=== PATIENT | female | born 1940 | race American Indian/Alaskan Native ===

== ENCOUNTER → 2019-03-21 | Outpatient (CLI) | payer MEDICARE ==
[~2019-03-21] MED LIST: ACET325; AMOCLA875 PO; CALCAVITDA PO; CODGUAEL PO; FLUT.05NI; GABA100 PO; GABA300 PO; HYDACE10B PO; INSULANI; METANX PO; METF500; METF500 PO; NIAC250ER PO; OMEP10ER PO; VITB100
== END | disposition home or self-care (01) ==
LOC: LAB SHORT 12:15 → LAB UCHC 12:15 → LAB FUT 01-11 14:10
DX: E78.2 Mixed hyperlipidemia (principal); E11.42 Type 2 diabetes mellitus with diabetic polyneuropathy; D50.9 Iron deficiency anemia, unspecified; R60.0 Localized edema
CPT/HCPCS: 82043

== ENCOUNTER 2019-04-15 07:53 | Day surgery (SDC) | payer MEDICARE ==
[~2019-04-15] VITALS: Ht 144.8 cm; Wt 59.4 kg
[~2019-04-15 07:53] MED LIST changes: +GEMF600 PO
--- NOTE | 2019-04-15 08:58 | NUR ---
Ambulatory WITH CANE in Day Surgery History, Chart, Medications and Allergies reviewed before start of procedure.Lungs clear T/O to Auscultation. Patient confirms NPO status and agrees with scheduled surgery. Patient States Post-Procedure ride home has been arranged. Patient states colon prep results clear. BLOOD SUGAR 144
--- NOTE | 2019-04-15 09:34 | NUR ---
04/15/19 0934 Emily Hwang History, Chart, Medications and Allergies reviewed before start of procedure.PATIENT DETERMINED TO BE ASA APPROPRIATE FOR PROPOFOL SEDATION PRIOR TO START OF PROCEDURE BY .MONITOR INTACT WITH CONTINUOUS PULSE OXIMETRY AND INTERMITTENT BP.3-LEAD EKG REVIEWED WITH PHYSICIAN PRIOR TO START OF PROCEDURE.O2 VIA N/C INTACT THROUGHOUT SEDATION/PROCEDURE.
--- NOTE | 2019-04-15 10:09 | NUR ---
DISCHARGED AT THIS TIME WITH ALL BELONGINGS AND DISCHARGE INSTRUCTIONS. DAUGHTER AT [employer] DOUBLING MACHINE OPERATOR TO TAKE HOME
== END 2019-04-15 22:57 | disposition home or self-care (01) ==
LOC: ORSCMMR 07:53 → ORD 09:00 → ORSCMMR 22:57
PROVIDERS: Internal Medicine Gastroenterology
PROC: 0DJD8ZZ Inspection of Lower Intestinal Tract, Via Natural or Artificial Opening Endoscopic (ICD-10-PCS; principal; 2019-04-15 09:00)
DX: Z12.11 Encounter for screening for malignant neoplasm of colon (principal); Z86.010 Personal history of colon polyps; K57.30 Diverticulosis of large intestine without perforation or abscess without bleeding; E11.9 Type 2 diabetes mellitus without complications; E78.00 Pure hypercholesterolemia, unspecified; Z79.84 Long term (current) use of oral hypoglycemic drugs; Z79.899 Other long term (current) drug therapy
CPT/HCPCS: 82947; J2704; J7120

== ENCOUNTER → 2019-11-17 | Outpatient (CLI) | payer MEDICARE ==
[2019-11-17 18:39] LABS: BASOPHILS ABSOLUTE AUTO 0.02 K/mm3 (0.00-0.23); BASOPHILS PERCENT AUTO 0 % (0-2); EOSINOPHILS ABSOLUTE AUTO 0.03 K/mm3 (0.00-0.68); EOSINOPHILS PERCENT AUTO 1 % (0-6); Hematocrit 33.6 % (33.0-51.0); Hemoglobin 11.6 g/dL (11.5-16.0); IMMATURE GRAN ABSOLUTE AUTO 0.02 K/mm3 (0.00-0.10); IMMATURE GRAN PERCENT AUTO 0 % (0-1); LYMPHOCYTES ABSOLUTE AUTO 0.74 K/mm3 (0.84-5.20); LYMPHOCYTES PERCENT AUTO 14 % (21-46); MONOCYTES ABSOLUTE AUTO 0.58 K/mm3 (0.16-1.47); MONOCYTES PERCENT AUTO 11 % (4-13); Mean Corpuscular HGB 34.2 pg (26.0-34.0); Mean Corpuscular HGB Conc 34.5 g/dL (31.5-36.5); Mean Corpuscular Volume 99 fL (80-100); Mean Platelet Volume 11.8 fL (9.1-12.4); NEUTROPHILS ABSOLUTE AUTO 4.07 K/mm3 (1.96-9.15); NEUTROPHILS PERCENT AUTO 75 % (41-73); Platelet Count 268 K/mm3 (150-400); RDW Coefficient Variation 13.1 % (11.7-14.2); RDW Standard Deviation 47.4 fL (35.1-46.3); Red Blood Cell Count 3.39 M/mm3 (3.80-5.20); White Blood Cell Count 5.46 K/mm3 (4.00-11.30)
[2019-11-17 18:56] LABS: Alanine Aminotransfer (ALT/SGP 7 U/L (12-78); Albumin, Blood 3.2 g/dL (3.4-5.0); Albumin/Globulin Ratio 0.8 (0.8-1.8); Alk Phos 158 U/L (40-126); Anion Gap 15 mmol/L (6-16); Aspartate Aminotrans (AST/SGOT 16 U/L (12-37); Bilirubin, Total 0.7 mg/dL (0.1-1.0); Blood Urea Nitrogen 19 mg/dL (8-24); Bun/Creatinine Ratio 23.2 (12.0-20.0); CO2, Blood 22 mmol/L (21-32); Calcium, Blood 8.9 mg/dL (8.5-10.1); Chloride, Blood 105 mmol/L (98-108); Creatinine, Blood 0.82 mg/dL (0.40-1.00); Globulin, Blood 4.2 g/dL (2.2-4.0); Glomerular Filtration Rate >60 (60-); Glucose, Blood 121 mg/dL (70-99); Potassium, Blood 4.4 mmol/L (3.5-5.5); Sodium, Blood 142 mmol/L (136-145); Thyroid Stimulating Hormone 2.103 uIU/mL (0.360-4.800); Total Protein, Blood 7.4 g/dL (6.4-8.2)
== END | disposition home or self-care (01) ==
LOC: LAB EV 18:35 → LAB SHORT 18:35
PROVIDERS: Physician Assistant
DX: M25.50 Pain in unspecified joint (principal); R53.83 Other fatigue
CPT/HCPCS: 80053; 84443; 85025; 85651

== ENCOUNTER → 2019-12-09 | Outpatient (CLI) | payer MEDICARE ==
[2019-12-10 11:48] LABS: Adenovirus F 40/41 Not Detected (NOT DETECT); Astrovirus Not Detected (NOT DETECT); Campylobacter Sp Not Detected (NOT DETECT); Cryptosporidium Not Detected (NOT DETECT); Cyclospora Cayetanensis Not Detected (NOT DETECT); E. Coli O157 Not Detected (NOT DETECT); Entamoeba Histolytica Not Detected (NOT DETECT); Enteroaggregative E. coli-EAEC Not Detected (NOT DETECT); Enteropathogenic E. coli-EPEC Not Detected (NOT DETECT); Enterotoxigenic E. coli-ETEC Not Detected (NOT DETECT); Giardia Lamblia Not Detected (NOT DETECT); Norovirus GI/GII Not Detected (NOT DETECT); Plesiomonas Shigelloides Not Detected (NOT DETECT); Rotavirus A Not Detected (NOT DETECT); Salmonella Sp Not Detected (NOT DETECT); Sapovirus Not Detected (NOT DETECT); Shiga Toxin-prod E. coli-STEC Not Detected (NOT DETECT); Shigella/Enteroin E. coli-EIEC Not Detected (NOT DETECT); Vibrio Cholerae Not Detected (NOT DETECT); Vibrio Sp Not Detected (NOT DETECT); Yersinia Enterocolitica Not Detected (NOT DETECT)
== END | disposition home or self-care (01) ==
LOC: LAB UCHC 17:00 → LAB SHORT 17:00
PROVIDERS: Internal Medicine
DX: R19.7 Diarrhea, unspecified (principal)
CPT/HCPCS: 0097U

== ENCOUNTER → 2020-05-18 | Outpatient (CLI) | payer MEDICARE ==
[2020-05-18 16:23] LABS: BASOPHILS ABSOLUTE AUTO 0.03 K/mm3 (0.00-0.23); BASOPHILS PERCENT AUTO 1 % (0-2); EOSINOPHILS ABSOLUTE AUTO 0.04 K/mm3 (0.00-0.68); EOSINOPHILS PERCENT AUTO 1 % (0-6); Hematocrit 36.3 % (33.0-51.0); Hemoglobin 11.9 g/dL (11.5-16.0); IMMATURE GRAN ABSOLUTE AUTO 0.02 K/mm3 (0.00-0.10); IMMATURE GRAN PERCENT AUTO 1 % (0-1); LYMPHOCYTES ABSOLUTE AUTO 0.95 K/mm3 (0.84-5.20); LYMPHOCYTES PERCENT AUTO 26 % (21-46); MONOCYTES ABSOLUTE AUTO 0.45 K/mm3 (0.16-1.47); MONOCYTES PERCENT AUTO 12 % (4-13); Mean Corpuscular HGB 34.2 pg (26.0-34.0); Mean Corpuscular HGB Conc 32.8 g/dL (31.5-36.5); Mean Corpuscular Volume 104 fL (80-100); Mean Platelet Volume 12.3 fL (9.1-12.4); NEUTROPHILS ABSOLUTE AUTO 2.22 K/mm3 (1.96-9.15); NEUTROPHILS PERCENT AUTO 60 % (41-73); Platelet Count 247 K/mm3 (150-400); RDW Coefficient Variation 12.5 % (11.7-14.2); RDW Standard Deviation 47.6 fL (35.1-46.3); Red Blood Cell Count 3.48 M/mm3 (3.80-5.20); White Blood Cell Count 3.71 K/mm3 (4.00-11.30)
[2020-05-18 16:48] LABS: Alanine Aminotransfer (ALT/SGP 9 U/L (12-78); Albumin, Blood 3.2 g/dL (3.4-5.0); Albumin/Globulin Ratio 0.9 (0.8-1.8); Alk Phos 137 U/L (50-136); Anion Gap 11 mmol/L (6-16); Aspartate Aminotrans (AST/SGOT 17 U/L (12-37); Bilirubin, Total 0.4 mg/dL (0.1-1.0); Blood Urea Nitrogen 14 mg/dL (8-24); Bun/Creatinine Ratio 20.4 (12.0-20.0); CO2, Blood 21 mmol/L (21-32); Calcium, Blood 8.5 mg/dL (8.5-10.1); Chloride, Blood 110 mmol/L (98-108); Creatinine, Blood 0.69 mg/dL (0.40-1.00); Globulin, Blood 3.5 g/dL (2.2-4.0); Glomerular Filtration Rate >60 (60-); Glucose, Blood 82 mg/dL (70-99); Potassium, Blood 4.5 mmol/L (3.5-5.5); Sodium, Blood 142 mmol/L (136-145); Total Protein, Blood 6.7 g/dL (6.4-8.2)
[2020-05-18 17:15] LABS: CHOL/HDL RATIO 3.4; Cholesterol 150 mg/dL (50-200); HDL Cholesterol 44 mg/dL (>39); LDL/HDL RATIO 1.4; Low Density Lipoprotein Chol 63 mg/dL (0-110); Triglycerides 215 mg/dL (30-160); Very Low Density Lipoprot Chol 43 mg/dL (6-32)
== END ==
LOC: LAB SHORT 13:45
PROVIDERS: Internal Medicine
DX: E53.8 Deficiency of other specified B group vitamins (principal); E78.2 Mixed hyperlipidemia; E11.42 Type 2 diabetes mellitus with diabetic polyneuropathy
CPT/HCPCS: 80053; 80061; 82607; 82746; 83036; 85025

== ENCOUNTER → 2020-05-19 | Outpatient (CLI) | payer MEDICARE | LOC: LAB SHORT 13:18 → LAB 13:18 | DX: E11.42 Type 2 diabetes mellitus with diabetic polyneuropathy (principal) | CPT/HCPCS: 82043 ==

== ENCOUNTER → 2022-07-10 | Outpatient (CLI) | payer MEDICARE ==
[~2022-07-10] MED LIST changes: +NAPROXEN250 M1 PO
[2022-07-10 12:06] LABS: BASOPHILS ABSOLUTE AUTO 0.02 K/mm3 (0.00-0.23); BASOPHILS PERCENT AUTO 0 % (0-2); EOSINOPHILS ABSOLUTE AUTO 0.06 K/mm3 (0.00-0.68); EOSINOPHILS PERCENT AUTO 1 % (0-6); Hematocrit 24.6 % (33.0-51.0); Hemoglobin 7.7 g/dL (11.5-16.0); IMMATURE GRAN ABSOLUTE AUTO 0.15 K/mm3 (0.00-0.10); IMMATURE GRAN PERCENT AUTO 3 % (0-1); LYMPHOCYTES ABSOLUTE AUTO 0.96 K/mm3 (0.84-5.20); LYMPHOCYTES PERCENT AUTO 16 % (21-46); MONOCYTES PERCENT AUTO 7 % (4-13); Mean Corpuscular HGB 32.1 pg (26.0-34.0); Mean Corpuscular HGB Conc 31.3 g/dL (31.5-36.5); Mean Corpuscular Volume 103 fL (80-100); Mean Platelet Volume 10.6 fL (9.1-12.4); NEUTROPHILS PERCENT AUTO 73 % (41-73); NRBC ABSOLUTE 0.03 K/mm3 (0.00-0.02); NRBC Auto 0.5 /100 WBC (0.0-0.2); Platelet Count 411 K/mm3 (150-400); RDW Coefficient Variation 17.5 % (11.7-14.2); RDW Standard Deviation 58.4 fL (35.1-46.3); White Blood Cell Count 5.89 K/mm3 (4.00-11.30)
[2022-07-10 14:43] LABS: Albumin/Globulin Ratio 0.6 (0.8-1.8); Bilirubin, Total 0.5 mg/dL (0.1-1.0); Bun/Creatinine Ratio 39.8 (12.0-20.0); Calcium, Blood 9.2 mg/dL (8.5-10.1); Creatinine, Blood 0.85 mg/dL (0.40-1.00); Globulin, Blood 4.9 g/dL (2.2-4.0); Potassium, Blood 4.6 mmol/L (3.5-5.5); Total Protein, Blood 7.9 g/dL (6.4-8.2)
== END | disposition home or self-care (01) ==
LOC: LAB SHORT 10:51
PROVIDERS: Family Medicine
DX: E11.8 Type 2 diabetes mellitus with unspecified complications (principal); N28.89 Other specified disorders of kidney and ureter; R53.1 Weakness; R32 Unspecified urinary incontinence; R68.89 Other general symptoms and signs; T14.8XXD Other injury of unspecified body region, subsequent encounter; Z73.89 Other problems related to life management difficulty; Z79.899 Other long term (current) drug therapy
CPT/HCPCS: 80053; 85025

== ENCOUNTER → 2022-07-17 | Outpatient (CLI) | payer MEDICARE ==
[2022-07-17 15:36] LABS: BASOPHILS ABSOLUTE AUTO 0.02 K/mm3 (0.00-0.23); BASOPHILS PERCENT AUTO 0 % (0-2); EOSINOPHILS ABSOLUTE AUTO 0.03 K/mm3 (0.00-0.68); EOSINOPHILS PERCENT AUTO 1 % (0-6); Hematocrit 28.3 % (33.0-51.0); Hemoglobin 8.8 g/dL (11.5-16.0); IMMATURE GRAN ABSOLUTE AUTO 0.05 K/mm3 (0.00-0.10); IMMATURE GRAN PERCENT AUTO 1 % (0-1); LYMPHOCYTES ABSOLUTE AUTO 0.91 K/mm3 (0.84-5.20); LYMPHOCYTES PERCENT AUTO 16 % (21-46); MONOCYTES PERCENT AUTO 7 % (4-13); Mean Corpuscular HGB Conc 31.1 g/dL (31.5-36.5); Mean Corpuscular Volume 103 fL (80-100); Mean Platelet Volume 10.2 fL (9.1-12.4); NEUTROPHILS ABSOLUTE AUTO 4.28 K/mm3 (1.96-9.15); NEUTROPHILS PERCENT AUTO 75 % (41-73); Platelet Count 483 K/mm3 (150-400); RDW Coefficient Variation 17.6 % (11.7-14.2); RDW Standard Deviation 64.6 fL (35.1-46.3); Red Blood Cell Count 2.75 M/mm3 (3.80-5.20); White Blood Cell Count 5.69 K/mm3 (4.00-11.30)
== END ==
LOC: LAB 13:25 → LAB SHORT 13:25
PROVIDERS: Family Medicine
DX: D64.9 Anemia, unspecified (principal)
CPT/HCPCS: 85025

== ENCOUNTER 2022-09-24 18:40 | Observation (INO) | payer MEDICARE ==
[~2022-09-24] VITALS: Ht 144.8 cm; Wt 61.5 kg
[2022-09-24] MEDS ORDERED: NEURONTIN40010 PO (19:09)
[2022-09-24] MEDS ORDERED: GEMFIBROZIL600 MG PO (19:09)
[2022-09-24] MEDS ORDERED: Naproxen375 MG PO (19:11)
[2022-09-24] MEDS ORDERED: GLIM2 PO (19:12)
[2022-09-24] MEDS ORDERED: LOSA25 PO (19:12)
[2022-09-24] MEDS ORDERED: GEMTESA75 MG PO (19:12)
[2022-09-24 19:13] LABS: BASOPHILS ABSOLUTE AUTO 0.01 K/mm3 (0.00-0.23); BASOPHILS PERCENT AUTO 0 % (0-2); EOSINOPHILS ABSOLUTE AUTO 0.01 K/mm3 (0.00-0.68); EOSINOPHILS PERCENT AUTO 0 % (0-6); Hematocrit 28.8 % (33.0-51.0); Hemoglobin 9.3 g/dL (11.5-16.0); IMMATURE GRAN ABSOLUTE AUTO 0.04 K/mm3 (0.00-0.10); IMMATURE GRAN PERCENT AUTO 1 % (0-1); LYMPHOCYTES ABSOLUTE AUTO 0.78 K/mm3 (0.84-5.20); LYMPHOCYTES PERCENT AUTO 15 % (21-46); MONOCYTES ABSOLUTE AUTO 0.37 K/mm3 (0.16-1.47); MONOCYTES PERCENT AUTO 7 % (4-13); Mean Corpuscular HGB 31.3 pg (26.0-34.0); Mean Corpuscular HGB Conc 32.3 g/dL (31.5-36.5); Mean Corpuscular Volume 97 fL (80-100); Mean Platelet Volume 10.6 fL (9.1-12.4); NEUTROPHILS ABSOLUTE AUTO 3.87 K/mm3 (1.96-9.15); NEUTROPHILS PERCENT AUTO 76 % (41-73); Platelet Count 377 K/mm3 (150-400); RDW Coefficient Variation 14.6 % (11.7-14.2); RDW Standard Deviation 51.7 fL (35.1-46.3); Red Blood Cell Count 2.97 M/mm3 (3.80-5.20); White Blood Cell Count 5.08 K/mm3 (4.00-11.30)
[2022-09-24] MEDS ORDERED: DICLOFENAC SOD100 GM TOP (19:13)
[2022-09-24 19:33] LABS: Albumin, Blood 3.1 g/dL (3.4-5.0); Albumin/Globulin Ratio 0.7 (0.8-1.8); Bilirubin, Total 0.2 mg/dL (0.1-1.0); Bun/Creatinine Ratio 48.4 (12.0-20.0); Calcium, Blood 9.1 mg/dL (8.5-10.1); Creatinine, Blood 0.89 mg/dL (0.40-1.00); Globulin, Blood 4.5 g/dL (2.2-4.0); Potassium, Blood 4.1 mmol/L (3.5-5.5); Total Protein, Blood 7.6 g/dL (6.4-8.2)
[2022-09-24 23:10] LABS: Source, Urine Voided
[2022-09-24 23:31] LABS: Bilirubin, Urine Neg (Neg); Blood, Urine Neg (Neg); Glucose Qualitative, Urine Neg (Neg); Ketones, Urine Neg (Neg); Leukocyte Esterase, Urine Neg (Neg); Nitrite, Urine Neg (Neg); Protein, Urine Neg (Neg); Urobilinogen, Urine NORM (Normal); pH, Urine 6.5 (5.0-8.0)
[2022-09-24 23:40] LABS: Appearance, Urine Clear (Clear); Color, Urine Yellow (P-Yellow)
[2022-09-25] VITALS (12 sets, daily range): BP systolic 125–163; BP diastolic 49–92
[2022-09-25 04:14] LABS: BASOPHILS ABSOLUTE AUTO 0.02 K/mm3 (0.00-0.23); BASOPHILS PERCENT AUTO 0 % (0-2); EOSINOPHILS ABSOLUTE AUTO 0.03 K/mm3 (0.00-0.68); EOSINOPHILS PERCENT AUTO 1 % (0-6); Hematocrit 30.7 % (33.0-51.0); Hemoglobin 9.8 g/dL (11.5-16.0); IMMATURE GRAN ABSOLUTE AUTO 0.06 K/mm3 (0.00-0.10); IMMATURE GRAN PERCENT AUTO 1 % (0-1); LYMPHOCYTES ABSOLUTE AUTO 0.89 K/mm3 (0.84-5.20); LYMPHOCYTES PERCENT AUTO 19 % (21-46); MONOCYTES ABSOLUTE AUTO 0.46 K/mm3 (0.16-1.47); MONOCYTES PERCENT AUTO 10 % (4-13); Mean Corpuscular HGB 31.2 pg (26.0-34.0); Mean Corpuscular HGB Conc 31.9 g/dL (31.5-36.5); Mean Corpuscular Volume 98 fL (80-100); Mean Platelet Volume 10.5 fL (9.1-12.4); NEUTROPHILS ABSOLUTE AUTO 3.32 K/mm3 (1.96-9.15); NEUTROPHILS PERCENT AUTO 70 % (41-73); Platelet Count 381 K/mm3 (150-400); RDW Coefficient Variation 14.9 % (11.7-14.2); RDW Standard Deviation 53.5 fL (35.1-46.3); Red Blood Cell Count 3.14 M/mm3 (3.80-5.20); White Blood Cell Count 4.78 K/mm3 (4.00-11.30)
[2022-09-25 04:35] LABS: Albumin/Globulin Ratio 0.7 (0.8-1.8); Bilirubin, Total 0.4 mg/dL (0.1-1.0); Bun/Creatinine Ratio 41.6 (12.0-20.0); Calcium, Blood 8.9 mg/dL (8.5-10.1); Creatinine, Blood 0.84 mg/dL (0.40-1.00); Globulin, Blood 4.3 g/dL (2.2-4.0); Potassium, Blood 4.3 mmol/L (3.5-5.5); Total Protein, Blood 7.3 g/dL (6.4-8.2)
--- NOTE | 2022-09-25 05:12 | NUR ---
ASSUMED PT CARE FROM RN IN ED. PT TRANSFERED TO BED FORM [facility] VIA SLIDER SHEET. PT A&OX4. REQUESTING HOME DOSE OF GABIPENTIN FOR NERVE PAIN IN FEET. NO OTHER COMPLAINTS. D10% INFURSING ORDERED. DR. DECKER INFORMED OF LOW BLOOD SUGARS. 1 AMP GIVEN BY TELEPHONE REPAIRERMELITON GIORDANO. PT REMAINS ASYMPTOMATIC OF BLOOD SUGARS. CALL LIGHT IN REACH. BED ALARM ON.
--- NOTE | 2022-09-25 05:49 | NUR ---
THIS NURSE ASSUMED CARE AT THIS TIME.
[2022-09-25] MEDS ORDERED: GABA800 PO ×5 (09:17→09:20)
[2022-09-25] MEDS ORDERED: Neurontin800 MG PO (09:18)
--- NOTE | 2022-09-25 16:22 | NUR ---
SHIFT SUMMARY: PT A&Ox4, COOPERATIVE W/CARE. O2 SATS >93% ON RA, DENIES SOB. SR ON MONITOR, RATE 80s, PT DENIES CP. INDWELLING COLON CATHETER CONTINUES PATENT, DRAINING TO GRAVITY. CATHETER WAS CLAMPED FROM 0600 TO 0930 THIS AM, PT DENIED SENSATION OR NEED TO VOID, CATHETER UNCLAMPED W/APPROX 650 IMMEDIATE DRAINAGE, PROVIDER AWARE, PLAN TO KEEP CATHETER IN PLACE AND TRY TO BLADDER TRAIN AGAIN TOMORROW. Q1H BLOOD GLUCOSE CHECKS COMPLETE AT THIS TIME, PT HAS TRANSITIONED TO ACHS AND PRN CHECKS, TOLERATING WELL THUS FAR. PT DIDIERAL COMPLETED THIS AFTERNOON, PT TOLERATED WELL, CURRENTLY SITTING IN BEDSIDE RECLINER. BEDBATH COMPLETED TODAY. WILL CONTINUE TO MONITOR AND TREAT ACCORDINGLY UNTIL CHANGE OF SHIFT.
--- NOTE | 2022-09-25 22:33 | NUR ---
ASSUMED CARE 2220 [place] [facility] [place] A&OX4. NO COMPLAINTS OF PAIN. COLON DRAINING TO GRAVITY, YELLOW IN COLOR. IV'S FLUSHED. WARM BLANKET PROVIDED, CALL LIGHT WITHIN REACH.
[2022-09-26 04:17] VITALS: BP 109/67
--- NOTE | 2022-09-26 05:15 | NUR ---
SHIFT SUMMARY PT A&OX4, AND COOPERATIVE WITH CARE. TRANSFERRED FROM PCU LAST NIGHT, RESTED MAJORITY OF SHIFT. NO ACUTE CHANGES. MONITORED GLUCOSE CLOSELY, 113 AT MIDNIGHT, AND 106 AT 0300. COLON PATIENT AND DRAINING TO GRAVITY, YELLOW IN COLOR. CALLS APPROPRIATELY, CALL LIGHT WITHIN REACH.
[2022-09-26 07:05] VITALS: BP 121/51
--- NOTE | 2022-09-26 10:47 | NUR ---
BLADDER TRAINING INITIATED AT 1030. PT EDUCATED ON PURPOSE OF BLADDER TRAINING.
[2022-09-26] MEDS ORDERED: GABA100 PO (11:33)
[2022-09-26] MEDS ORDERED: GABA300 PO (11:34)
--- NOTE | 2022-09-26 12:44 | NUR ---
COMMUNITY DEVELOPMENT AIDE NOTIFIED THIS RN THAT PATIENT WAS UPSET AND CRYING IN HER ROOM AFTER DAUGHTER LEFT. SPOKE WITH PATIENT WHO STATED HER DAUGHTER TOLD HER THAT" SHE HAS NO MONEY TO PAY THE BILLS, YOU CAN'T STAY HERE BY YOURSELF ALONE." THE PATIENT STATED THAT SHE DOESNT BELIIEVE SHE WILL BE ALLOWED TO GO HOME WITH HER DAUGHTER. PT STATES THAT THIS MAKES HER WISH TO GIVE UP SO NOT TO BOTHER PEOPLE WITH HER PROBLEMS. SPOKE WITH CARE MANAGEMENT TO UPDATE THEM ON PATIENTS DISCHARGE CONCERNS. SPENT TIME TALKING WITH PATIENT.
[2022-09-26 15:15] VITALS: BP 149/67
--- NOTE | 2022-09-26 16:37 | NUR ---
spoke with patient about discharge. this rn asked her if she feels safe returning home. the patient hesitated for a few seconds before saying "well she will definetly talk to me, but i dont think she would hit me or anything." I asked her if she has access to a phone in case she doesnt feel safe, she stated she does not have access to a phone and does not have a landline at home. she stated she always wanted one "but it seems like no one was ever able to get it done" call placed to APS at this time spoke with Dominic Sofia They reccomend contacting transition services with [facility] pt previously expressed a desire to go to a place where "I am no longer treated like a child." She also expressed a concern that her daughter would not allow home health into her house.
--- NOTE | 2022-09-26 16:41 | NUR ---
DISCHARGE SUMMARY PT A&O X4, ABLE TO RESPOND APPROPRAITELY. PT BEING DISCHARGED WITH CATHETER. EDUCATED ABOUT CATHETER CARE AND DRAINING CATHETER. PT WAS VERY RECEPTIVE, ASKED APPROPRIATE QUESTIONS. EDUCATED FURTHER ON DIABETES MANAGEMENT, PT WELL RECEPTIVE. PT HAD SOME QUESTIONS ABOUT HOME HEALTH. PT SAYS "I DONT KNOW IF MY DAUGHTER WILL ALLOW THEM IN. SHE DOESNT KNOW IF SHE WILL BE ABLE TO PAY TO THEM." WAS EDUCATED THEY WILL COME AND EVALUATE SITUATION. PT RECEPTIVE TO THIS INFORMATION. NO OTHER QUESTIONS AT THIS TIME. PT ABLE TO STAND UP WITH SOME ASST. WAITING ON TRANSPORT.
--- NOTE | 2022-09-26 17:01 | NUR ---
spoke with dr. ayala, she states patient is still safe to discharge medically. spoke with career manager again daughter is aware that patient is coming home and is agreable to patient coming home. pt still agrees to go home at this time.
--- NOTE | 2022-09-26 18:02 | NUR ---
Pt. is sitting up in a recliner and welcomes my visit. Pt. is pleasant and without much effort rapport is established. Facilitated an extensive life review with the Pt. Explored matters of personal dave and belief. Pt. verbalized that her current living arrangement with her daughter was not working out, because the daughter works long hours and can't be home to care for her. Pt. displayed evidence of trust. Pt. verbalized that she had prayed for a person of dave to visit her prior to this systems planner's arrival. Prayed with Pt. Pt. verbalized gratitude for the spiritual care visit and that to her it was an answer to prayer.
== END 2022-09-26 19:00 | disposition home or self-care (01) ==
LOC: ER 18:40 → PCU 18:41 → ERHOLD 18:41 → PCU 09-25 02:32 → SURS 09-25 22:25
PROVIDERS: Emergency Medicine; ADMIT Internal Medicine
DX: E11.649 Type 2 diabetes mellitus with hypoglycemia without coma (principal); K62.5 Hemorrhage of anus and rectum; R33.9 Retention of urine, unspecified; E11.42 Type 2 diabetes mellitus with diabetic polyneuropathy; Z79.84 Long term (current) use of oral hypoglycemic drugs
CPT/HCPCS: 36415; 51701; 51702; 74177; 80053; 81003; 82947; 83036; 83690; 85025; 93005; 93010; 96361-59; 96372; 96374-59; 96375; 96376; 96376-59; 97110-CQ; 97116; 97116-CQ; 97162; 97166; 97530; 97535; 99285-25; A9270; C1751; G0378; J1610; J1650; J7042; Q9967

== ENCOUNTER → 2023-02-16 | Outpatient (CLI) | payer MEDICARE ==
[~2023-02-16] MED LIST changes: +DICLOFENAC SOD100 GM TOP; +GABA800 PO; +GEMFIBROZIL600 MG PO; +GEMTESA75 MG PO; +GLIM2 PO; +LOSA25 PO; +NEURONTIN40010 PO; +Naproxen375 MG PO; +Neurontin800 MG PO; +ONDA4ODT MM
[2023-02-16 15:27] LABS: Appearance, Urine Clear (Clear); Bilirubin, Urine Neg (Neg); Blood, Urine Neg (Neg); Color, Urine Yellow (P-Yellow); Glucose Qualitative, Urine Neg (Neg); Ketones, Urine Neg (Neg); Leukocyte Esterase, Urine 3+ (Neg); Nitrite, Urine Neg (Neg); Protein, Urine 1+ (Neg); Specific Gravity, Urine 1.015 (1.003-1.022); Urobilinogen, Urine NORM (Normal)
[2023-02-16 15:39] LABS: Red Blood Cells, Urine 0-2 /hpf (0-2); Renal Epithelial Few /hpf (0-Rare)
[2023-02-16 15:41] LABS: Cystine Crystals Few /hpf
[2023-02-16 15:42] LABS: Bacteria Many /hpf; Squamous Epithelial Cells Rare /hpf (Few)
== END ==
LOC: LAB SHORT 14:44 → LAB 14:44
DX: N39.0 Urinary tract infection, site not specified (principal)
CPT/HCPCS: 81001; 87086

== ENCOUNTER → 2023-03-08 | Outpatient (CLI) | payer MEDICARE ==
[2023-03-08 18:30] LABS: Appearance, Urine Cloudy (Clear); Bilirubin, Urine Neg (Neg); Blood, Urine 2+ (Neg); Color, Urine Yellow (P-Yellow); Glucose Qualitative, Urine Neg (Neg); Ketones, Urine Neg (Neg); Leukocyte Esterase, Urine 3+ (Neg); Nitrite, Urine Pos (Neg); Protein, Urine 2+ (Neg); Specific Gravity, Urine 1.015 (1.003-1.022); Urobilinogen, Urine NORM (Normal)
[2023-03-08 18:42] LABS: Bacteria Many /hpf; Hyaline Casts 0-2 /lpf (0-2); Squamous Epithelial Cells Few /hpf (Few); Transitional Epithelial Cells Rare /hpf (0-Rare); White Blood Cells, Urine 50-100 /hpf (0-5)
== END | disposition home or self-care (01) ==
LOC: LAB 09:45 → LAB SHORT 09:45
PROVIDERS: Family Medicine
DX: N39.0 Urinary tract infection, site not specified (principal)
CPT/HCPCS: 81001; 87077; 87086; 87186

== ENCOUNTER 2023-03-24 08:10 | Inpatient (IN) | payer MEDICARE, OTHER ==
[~2023-03-24] VITALS: Ht 139.7 cm; Wt 58.5 kg
[2023-03-24] VITALS (12 sets, daily range): BP systolic 122–141; BP diastolic 50–62
[2023-03-24 10:00] LABS: BASOPHILS ABSOLUTE AUTO 0.02 K/mm3 (0.00-0.23); BASOPHILS PERCENT AUTO 0 % (0-2); EOSINOPHILS ABSOLUTE AUTO 0.05 K/mm3 (0.00-0.68); EOSINOPHILS PERCENT AUTO 1 % (0-6); Hematocrit 23.8 % (33.0-51.0); Hemoglobin 7.5 g/dL (11.5-16.0); IMMATURE GRAN ABSOLUTE AUTO 0.23 K/mm3 (0.00-0.10); IMMATURE GRAN PERCENT AUTO 4 % (0-1); LYMPHOCYTES ABSOLUTE AUTO 1.08 K/mm3 (0.84-5.20); LYMPHOCYTES PERCENT AUTO 20 % (21-46); MONOCYTES ABSOLUTE AUTO 0.53 K/mm3 (0.16-1.47); MONOCYTES PERCENT AUTO 10 % (4-13); Mean Corpuscular HGB 30.9 pg (26.0-34.0); Mean Corpuscular HGB Conc 31.5 g/dL (31.5-36.5); Mean Corpuscular Volume 98 fL (80-100); NEUTROPHILS PERCENT AUTO 64 % (41-73); Platelet Count 274 K/mm3 (150-400); RDW Coefficient Variation 15.8 % (11.7-14.2); RDW Standard Deviation 56.5 fL (35.1-46.3); Red Blood Cell Count 2.43 M/mm3 (3.80-5.20); White Blood Cell Count 5.31 K/mm3 (4.00-11.30)
[2023-03-24 10:07] LABS: Albumin, Blood 2.3 g/dL (3.4-5.0); Albumin/Globulin Ratio 0.5 (0.8-1.8); Bilirubin, Total 0.2 mg/dL (0.1-1.0); Bun/Creatinine Ratio 32.8 (12.0-20.0); Calcium, Blood 8.5 mg/dL (8.5-10.1); Creatinine, Blood 1.28 mg/dL (0.40-1.00); Globulin, Blood 4.8 g/dL (2.2-4.0); Potassium, Blood 4.9 mmol/L (3.5-5.5); Total Protein, Blood 7.1 g/dL (6.4-8.2)
--- NOTE | 2023-03-24 16:25 | NUR ---
SHIFT SUMMARY PT A&OX4, VSS/RA, BRIDGETTE PO CLD, VOIDING, AMB SBA, DENIES PAIN AT THIS TIME/NEED FOR MED, IVF @ 100 MLS/HR & ABX PER EMAR. S/P ABD I&D, DOMINIQUE, PINK FOAM DRESSING CDI. WILL REPORT TO ONCOMING NOC RN.
[2023-03-25] VITALS (9 sets, daily range): BP systolic 107–149; BP diastolic 48–57
[2023-03-25 05:39] LABS: BASOPHILS ABSOLUTE AUTO 0.01 K/mm3 (0.00-0.23); BASOPHILS PERCENT AUTO 0 % (0-2); EOSINOPHILS PERCENT AUTO 0 % (0-6); Hemoglobin 6.7 g/dL (11.5-16.0); IMMATURE GRAN ABSOLUTE AUTO 0.21 K/mm3 (0.00-0.10); IMMATURE GRAN PERCENT AUTO 4 % (0-1); LYMPHOCYTES ABSOLUTE AUTO 0.83 K/mm3 (0.84-5.20); LYMPHOCYTES PERCENT AUTO 16 % (21-46); MONOCYTES ABSOLUTE AUTO 0.19 K/mm3 (0.16-1.47); MONOCYTES PERCENT AUTO 4 % (4-13); Mean Corpuscular HGB 30.7 pg (26.0-34.0); Mean Corpuscular HGB Conc 30.5 g/dL (31.5-36.5); Mean Corpuscular Volume 101 fL (80-100); Mean Platelet Volume 9.8 fL (9.1-12.4); NEUTROPHILS ABSOLUTE AUTO 4.12 K/mm3 (1.96-9.15); NEUTROPHILS PERCENT AUTO 77 % (41-73); Platelet Count 407 K/mm3 (150-400); RDW Coefficient Variation 15.8 % (11.7-14.2); RDW Standard Deviation 58.1 fL (35.1-46.3); Red Blood Cell Count 2.18 M/mm3 (3.80-5.20); White Blood Cell Count 5.36 K/mm3 (4.00-11.30)
[2023-03-25 06:16] LABS: Calcium, Blood 8.4 mg/dL (8.5-10.1); Creatinine, Blood 1.27 mg/dL (0.40-1.00); Potassium, Blood 5.3 mmol/L (3.5-5.5)
--- NOTE | 2023-03-25 08:13 | NUR ---
SUMMARY PT TOOK TYLENOL ONLY FOR PAIN TONIGHT. SLEPT BETWEEN VOIDS.
--- NOTE | 2023-03-25 10:48 | NUR ---
TELEPHONE CALL TO DR MORALES TO MAKE HIM AWARE OF BLOOD BANK CALL TO ME RELAYING THAT THERE IS A DELAY IN LOCATING THE BLOOD MATCH FOR THIS PATIENT. LAB WILL CALL ME WHEN THEY HAVE A MATCH/AND APPROXIMATE TIME IT WILL BE AVAILABLE FOR PATIENT; WILL RELAY THIS INFORMATION TO WHEN I RECEIVE IT.
--- NOTE | 2023-03-25 12:41 | NUR ---
DR HIGUERA IN TO SEE PATIENT: DRESSING CHANGED/PACKING REMOVED/DOMINIQUE IN PLACE.
--- NOTE | 2023-03-25 16:43 | NUR ---
SHIFT SUMMARY POD1 ABD I&D, DOMINIQUE WITH BROWN DRAINAGE, PACKING REMOVED BY SURGEON, PINK FOAM DRESSING CDI, WOUND CONSULT IN. A&OX4, VSS/RA, BRIDGETTE PO ADA DIET, VOIDING/BSC-BEDPAN/ATTENDS ON, AMB SBA/FWW/GB, PAIN MANAGED, IVF @ 100 MLS/HR & ABX PER EMAR, RECEIVING 1 UNIT PRBCs NOW. WILL REPORT TO ONCOMING NOC RN.
--- NOTE | 2023-03-25 18:28 | NUR ---
BLOOD INFUSION COMPLETE
[2023-03-25 22:03] LABS: Hematocrit 26.3 % (33.0-51.0); Hemoglobin 8.7 g/dL (11.5-16.0)
[2023-03-26 02:13] VITALS: BP 135/50
--- NOTE | 2023-03-26 07:39 | NUR ---
summary changed dressing maddy ruiz around angela.med per new orders with gabepentin per pt request of home med for neuropathy ble.
[2023-03-26 08:10] VITALS: BP 129/52
[2023-03-26 08:49] LABS: BASOPHILS ABSOLUTE AUTO 0.03 K/mm3 (0.00-0.23); BASOPHILS PERCENT AUTO 1 % (0-2); EOSINOPHILS ABSOLUTE AUTO 0.11 K/mm3 (0.00-0.68); EOSINOPHILS PERCENT AUTO 2 % (0-6); Hematocrit 28.4 % (33.0-51.0); Hemoglobin 9.2 g/dL (11.5-16.0); IMMATURE GRAN ABSOLUTE AUTO 0.36 K/mm3 (0.00-0.10); IMMATURE GRAN PERCENT AUTO 7 % (0-1); LYMPHOCYTES ABSOLUTE AUTO 1.16 K/mm3 (0.84-5.20); LYMPHOCYTES PERCENT AUTO 21 % (21-46); MONOCYTES ABSOLUTE AUTO 0.36 K/mm3 (0.16-1.47); MONOCYTES PERCENT AUTO 7 % (4-13); Mean Corpuscular HGB 31.6 pg (26.0-34.0); Mean Corpuscular HGB Conc 32.4 g/dL (31.5-36.5); Mean Corpuscular Volume 98 fL (80-100); Mean Platelet Volume 9.7 fL (9.1-12.4); NEUTROPHILS PERCENT AUTO 64 % (41-73); Platelet Count 425 K/mm3 (150-400); RDW Coefficient Variation 15.6 % (11.7-14.2); RDW Standard Deviation 55.6 fL (35.1-46.3); Red Blood Cell Count 2.91 M/mm3 (3.80-5.20); White Blood Cell Count 5.52 K/mm3 (4.00-11.30)
[2023-03-26 09:10] LABS: BASOPHILS PERCENT MAN 0 % (0-2); EOSINOPHILS PERCENT MAN 0 % (0-6); LYMPHOCYTES ABSOLUTE MAN 0.88 K/mm3 (0.84-5.20); LYMPHOCYTES PERCENT MAN 16 % (21-46); METAMYELOCYTE ABSOLUTE MAN 0.05 K/mm3 (0.00-0.00); METAMYELOCYTE PERCENT MAN 1 % (0-0); MONOCYTES ABSOLUTE MAN 0.16 K/mm3 (0.16-1.47); MONOCYTES PERCENT MAN 3 % (4-13); MYELOCYTE ABSOLUTE MAN 0.05 K/mm3 (0.00-0.00); MYELOCYTE PERCENT MAN 1 % (0-0); NEUTROPHILS ABSOLUTE MAN 4.36 K/mm3 (1.96-9.15); SEG NEUTROPHILS PERCENT MAN 79 % (41-73); TOTAL CELLS COUNTED 100
[2023-03-26 09:16] LABS: Albumin, Blood 2.2 g/dL (3.4-5.0); Albumin/Globulin Ratio 0.5 (0.8-1.8); Bilirubin, Total 0.3 mg/dL (0.1-1.0); Bun/Creatinine Ratio 24.5 (12.0-20.0); Calcium, Blood 8.8 mg/dL (8.5-10.1); Creatinine, Blood 1.02 mg/dL (0.40-1.00); Globulin, Blood 4.6 g/dL (2.2-4.0); Magnesium, Blood 1.7 mg/dL (1.6-2.4); Potassium, Blood 4.8 mmol/L (3.5-5.5); Total Protein, Blood 6.8 g/dL (6.4-8.2)
[2023-03-26 15:09] VITALS: BP 152/61
--- NOTE | 2023-03-26 18:39 | NUR ---
SHIFT SUMMARY PT POD 2 I&D ABD WALL ABCESS. DOMINIQUE DRAIN IN PLACE, LARGE AMOUNT OF BROWNISH LIQUID OUT T/O DAY, OSTOMY DEVICE PLACED OVER DRAIN TO LIMIT MOISTURE ON SKIN. PT SBA TO BATHROOM USING FWW. DENIES PAIN. SALINE LOCKED. IV ABX PER EMAR. REPEAT CBC IN AM TO CONTINUE TO MONITOR HGB.
[2023-03-26 20:06] VITALS: BP 125/52
--- NOTE | 2023-03-27 01:49 | NUR ---
DRESSING CHANGE. LATE ENTRY FOR 2300 03/26/23. DOMINIQUE DRESSING CHANGED D/T LEAKAGE. GENTLY CLEANED SKIN AROUND DRAIN. APPLIED STING FREE SKIN BARRIER AROUND SURROUNDING SKIN. PLACED ABD PADS OVER DRAIN AND TAPED DOWN WITH MEFIX TAPE. PT TOLERATED WELL.
--- NOTE | 2023-03-27 04:34 | NUR ---
SHIFT SUMMARY NOC. PT A/O X4 THIS SHIFT. PT MEDICATED FOR BILATERAL FOOT/LEG PAIN WITH MINIMAL RELIEF. NON PHARMACOLOGICAL INTERVENTIONS WERE MORE EFFECTIVE. PT'S LEFT IV WOULD NOT FLUSH AND WAS D/C'D, NEW IV STARTED IN RIGHT HAND. PT DOMINIQUE DRAIN IS PRODUCING OUTPUT. NEW DRESSING APPLIED EARLIER THIS SHIFT. PT VOIDING URINE AND AMBULATES TO BATHROOM. PT RESTED WITH EYES CLOSED AND CALL LIGHT IN REACH.
[2023-03-27 04:51] VITALS: BP 143/61
[2023-03-27 05:07] LABS: Hematocrit 28.1 % (33.0-51.0); Mean Corpuscular HGB 31.5 pg (26.0-34.0); Mean Corpuscular Volume 98 fL (80-100); Mean Platelet Volume 9.5 fL (9.1-12.4); Platelet Count 414 K/mm3 (150-400); RDW Coefficient Variation 15.3 % (11.7-14.2); RDW Standard Deviation 55.7 fL (35.1-46.3); Red Blood Cell Count 2.86 M/mm3 (3.80-5.20)
[2023-03-27 05:38] LABS: Albumin, Blood 2.1 g/dL (3.4-5.0); Anion Gap 6 mmol/L (6-16); Blood Urea Nitrogen 22 mg/dL (8-24); Bun/Creatinine Ratio 22.9 (12.0-20.0); CO2, Blood 21 mmol/L (21-32); Calcium, Blood 8.5 mg/dL (8.5-10.1); Chloride, Blood 114 mmol/L (98-108); Creatinine, Blood 0.96 mg/dL (0.40-1.00); Glomerular Filtration Rate 59 (60-); Glucose, Blood 98 mg/dL (70-99); Phosphorus, Blood 3.5 mg/dL (2.5-4.9); Potassium, Blood 4.7 mmol/L (3.5-5.5); Sodium, Blood 141 mmol/L (136-145)
[2023-03-27 05:40] LABS: BAND PERCENT MAN 1 % (0-8); BASOPHILS PERCENT MAN 0 % (0-2); EOSINOPHILS ABSOLUTE MAN 0.04 K/mm3 (0.00-0.68); EOSINOPHILS PERCENT MAN 1 % (0-6); LYMPHOCYTES ABSOLUTE MAN 1.39 K/mm3 (0.84-5.20); LYMPHOCYTES PERCENT MAN 31 % (21-46); MONOCYTES ABSOLUTE MAN 0.63 K/mm3 (0.16-1.47); MONOCYTES PERCENT MAN 14 % (4-13); MYELOCYTE ABSOLUTE MAN 0.18 K/mm3 (0.00-0.00); MYELOCYTE PERCENT MAN 4 % (0-0); NEUTROPHILS ABSOLUTE MAN 2.25 K/mm3 (1.96-9.15); SEG NEUTROPHILS PERCENT MAN 49 % (41-73); TOTAL CELLS COUNTED 100
[2023-03-27 07:13] VITALS: BP 148/56
--- NOTE | 2023-03-27 10:44 | NUR ---
"Spiritual Care | Pt. Request Pt. is awake in bed, displaying evidence of tears from leg discomfort, but she welcomes my visit. Facilitate a short life review and listened with empathy and a calmikng presence. Pt. displayed evidence of being more at peace, but still has discomfort. Pt. displayed evidence of being comforted by spiritual care. Prayed with Pt. Pt. verbalized gratitude for [facility] spiritual care visit and welcomed this dye weigher helper to return."
[2023-03-27 14:49] VITALS: BP 145/57
[2023-03-27 19:18] VITALS: BP 147/64
[2023-03-28 04:34] VITALS: BP 148/51
[2023-03-28 04:44] VITALS: BP 151/52
[2023-03-28 04:48] LABS: Hematocrit 27.5 % (33.0-51.0); Hemoglobin 8.7 g/dL (11.5-16.0); Mean Corpuscular HGB 30.9 pg (26.0-34.0); Mean Corpuscular HGB Conc 31.6 g/dL (31.5-36.5); Mean Corpuscular Volume 98 fL (80-100); Mean Platelet Volume 9.5 fL (9.1-12.4); Platelet Count 401 K/mm3 (150-400); RDW Coefficient Variation 15.3 % (11.7-14.2); RDW Standard Deviation 53.9 fL (35.1-46.3); Red Blood Cell Count 2.82 M/mm3 (3.80-5.20); White Blood Cell Count 4.43 K/mm3 (4.00-11.30)
--- NOTE | 2023-03-28 05:17 | NUR ---
SHIFT SUMMARY POD4 I&D OF ABD ABSCESS. OSTOMY DEVISE REMAINS IN PLACE TO COLLECT DRAINAGE. SCANT GREEN/BROWN THIN DRAINAGE NOTED. VSS. PT SLEPT WELL T/O THE NIGHT. AMBULATED TO THE BATHROOM, SBA, VOIDING W/O DIFFICULTY. PT REPORTS PASSING FLATTUS, NO BM'S THIS SHIFT. PT DENIES N/T. TOLLERATING PO INTAKE W/O N/V. MEDICATED ONCE WITH PAIN MEDICATION FOR BILAT LEG PAIN (NEUROPATHY). PT REPORTS ABD HAS MINIMAL TO NO PAIN. NO ACUTE EVENTS NOTED T/O THE NIGHT
[2023-03-28 05:42] LABS: BAND PERCENT MAN 1 % (0-8); BASOPHILS PERCENT MAN 0 % (0-2); EOSINOPHILS ABSOLUTE MAN 0.17 K/mm3 (0.00-0.68); EOSINOPHILS PERCENT MAN 4 % (0-6); LYMPHOCYTES ABSOLUTE MAN 1.37 K/mm3 (0.84-5.20); LYMPHOCYTES PERCENT MAN 31 % (21-46); METAMYELOCYTE ABSOLUTE MAN 0.08 K/mm3 (0.00-0.00); METAMYELOCYTE PERCENT MAN 2 % (0-0); MONOCYTES ABSOLUTE MAN 0.26 K/mm3 (0.16-1.47); MONOCYTES PERCENT MAN 6 % (4-13); MYELOCYTE ABSOLUTE MAN 0.17 K/mm3 (0.00-0.00); MYELOCYTE PERCENT MAN 4 % (0-0); NEUTROPHILS ABSOLUTE MAN 2.34 K/mm3 (1.96-9.15); SEG NEUTROPHILS PERCENT MAN 52 % (41-73); TOTAL CELLS COUNTED 100
[2023-03-28 05:46] LABS: Albumin, Blood 2.2 g/dL (3.4-5.0); Anion Gap 5 mmol/L (6-16); Blood Urea Nitrogen 19 mg/dL (8-24); Bun/Creatinine Ratio 19.5 (12.0-20.0); CO2, Blood 22 mmol/L (21-32); Calcium, Blood 8.6 mg/dL (8.5-10.1); Chloride, Blood 113 mmol/L (98-108); Creatinine, Blood 0.97 mg/dL (0.40-1.00); Glomerular Filtration Rate 58 (60-); Glucose, Blood 90 mg/dL (70-99); Phosphorus, Blood 3.5 mg/dL (2.5-4.9); Potassium, Blood 4.5 mmol/L (3.5-5.5); Sodium, Blood 140 mmol/L (136-145)
[2023-03-28 07:53] VITALS: BP 139/63
--- NOTE | 2023-03-28 11:07 | NUR ---
Pt. is awake and sitting up in a chair when she welcomes my visit. Pt. is pleasant and is displaying evidence of more confidence and verbalized that the pain in her legs has improved. Facilitated Pt. Life story, Listen with empthy, interest and engagement. Considered matters of family, dave, and belief. Prayed with Pt. Pt. verbalized gratitude for the spiritual care visit.
--- NOTE | 2023-03-28 12:19 | NUR ---
SPOKE WITH DR. HIGUERA AND BRENTON, TECHNICAL SUPPORT SPECIALIST. BRENTON PLANS TO SEE PT TOMORROW MORNING TO REMOVE PINROSE DRAIN AND LEAVE INSTUCTIONS FOR WOUND CARE FOR REMAINDER OF HOSPITAL STAY AND AT DISCHARGE.
[2023-03-28 14:38] VITALS: BP 141/59
--- NOTE | 2023-03-28 15:55 | NUR ---
SUMMARY: PT IS POD5 I&D OF GOVIND NEVAREZ. A/O, VSS. PINROSE DRAIN CONTINUES TO HAVE SMALL AMT BROWN OUTPUT INTO OSTOMY APPLIANCE. PT HAD BM TODAY AND IS VOIDING, AMBULATES TO BATHROOM WITH FWW AND SBA. PT HAS NOT COMPLAINED OF PAIN TODAY, USES CALL LIGHT IN MAKE NEEDS KNOWN. PLAN IS POSSIBLE DC TOMORROW.
[2023-03-28 19:21] VITALS: BP 130/48
[2023-03-29 04:35] VITALS: BP 120/51
[2023-03-29 05:15] LABS: Hematocrit 27.4 % (33.0-51.0); Hemoglobin 8.9 g/dL (11.5-16.0); Mean Corpuscular HGB 31.8 pg (26.0-34.0); Mean Corpuscular HGB Conc 32.5 g/dL (31.5-36.5); Mean Corpuscular Volume 98 fL (80-100); Mean Platelet Volume 9.4 fL (9.1-12.4); Platelet Count 396 K/mm3 (150-400); RDW Coefficient Variation 15.1 % (11.7-14.2); RDW Standard Deviation 53.1 fL (35.1-46.3); White Blood Cell Count 5.11 K/mm3 (4.00-11.30)
--- NOTE | 2023-03-29 05:16 | NUR ---
SHIFT SUMMARY POD5 I&D OF ABD ABSCESS. OSTOMY DEVISE REMAINS IN PLACE OVER SITE. DRAINAGE REMAINS THIN AND GREEN/BROWN. MODERATE OUTPUT NOTED T/O THE SHIFT, ABOUT 100 MLS OUTPUT. VSS. PT DID NOT REQUIRE ANY PAIN MEDICATION T/O THE NIGHT. AMBULATING TO THE BATHROOM WITH A SBA, VOIDING W/O DIFFICULTY, PASSING FLATTUS AND STOOLS. STOOLS NOTED TO BE THIN. TOLLERATING PO INTAKE W/O N/V. NO ACUTE EVENTS NOTED T/O THE NIGHT. PLAN FOR WOUND CARE TO CONSULT ON THIS PT TODAY AND POSSIBLY D/C. THE PATIENT IS RESTING, IN NO DISTRESS, CALL LIGHT IN REACH
[2023-03-29 05:45] LABS: Bun/Creatinine Ratio 21.5 (12.0-20.0); Creatinine, Blood 0.93 mg/dL (0.40-1.00); Potassium, Blood 4.7 mmol/L (3.5-5.5)
[2023-03-29 05:48] LABS: BAND PERCENT MAN 2 % (0-8); BASOPHILS PERCENT MAN 2 % (0-2); EOSINOPHILS ABSOLUTE MAN 0.25 K/mm3 (0.00-0.68); EOSINOPHILS PERCENT MAN 5 % (0-6); LYMPHOCYTES ABSOLUTE MAN 1.32 K/mm3 (0.84-5.20); LYMPHOCYTES PERCENT MAN 26 % (21-46); MONOCYTES PERCENT MAN 8 % (4-13); MYELOCYTE ABSOLUTE MAN 0.15 K/mm3 (0.00-0.00); MYELOCYTE PERCENT MAN 3 % (0-0); NEUTROPHILS ABSOLUTE MAN 2.86 K/mm3 (1.96-9.15); SEG NEUTROPHILS PERCENT MAN 54 % (41-73); TOTAL CELLS COUNTED 100
[2023-03-29 07:17] VITALS: BP 112/50
[2023-03-29] MEDS ORDERED: Acetaminophen325 M1 PO (13:58)
--- NOTE | 2023-03-29 14:36 | NUR ---
DISCHARGE SUMMARY WRITTEN AND VERBAL DISCHARGE INSTRUCTIONS GIVEN. PATIENT AGREEABLE TO DISCHARGE. DISCHARGING HOME TO [facility] [place]. OSTOMY APPLIANCE OVER ABDOMINAL WOUND CHANGED THIS AM BY CLINICAL RESEARCH DIRECTORBRENTON. APPLIANCE IS C/D/I AT THIS TIME. IV REMOVED FROM R HAND, PATIENT TOLERATED WELL, CATH TIP INTACT. BELONGINGS GATHERED AND PATIENT WHEELED OUT IN WHEELCHAIR TO PATIENT'S DAUGHTERS VEHICLE.
--- NOTE | 2023-03-29 14:59 | NUR ---
WOUND CARE PT WITH COMPLICATED HX OF ABDOMINAL SX. PT HOSPITALIZED WITH Q ABCESS. FECAL DRAINAGE NOTED DURING I&D. 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 HIGUERA. DOMINIQUE DRAIN REMOVED TODAY. FISTULA APPEARS TO BE ESTABLISHED. WOUND POUCHED TO CONTAIN DRAINMENT. SHE WILL NEED FOLLOW UP WITH HH AND WOUND CLINIC ON DC
== END 2023-03-29 14:00 | disposition home or self-care (01) | DRG 603 ==
LOC: ER 08:10 → SURS 08:11 → ER 12:00 → SURS 12:44
PROVIDERS: Emergency Medicine; Student in an Organized Health Care Education/Training Program; Surgery; ADMIT Internal Medicine
PROC: 0J9800Z Drainage of Abdomen Subcutaneous Tissue and Fascia with Drainage Device, Open Approach (ICD-10-PCS; 2023-03-24)
PROC: 30233N1 Transfusion of Nonautologous Red Blood Cells into Peripheral Vein, Percutaneous Approach (ICD-10-PCS; principal; 2023-03-24 07:30)
DX: L02.211 Cutaneous abscess of abdominal wall (principal); D62 Acute posthemorrhagic anemia; E87.20 Acidosis, unspecified; K63.2 Fistula of intestine; E11.42 Type 2 diabetes mellitus with diabetic polyneuropathy; Z66 Do not resuscitate; E78.00 Pure hypercholesterolemia, unspecified; K43.9 Ventral hernia without obstruction or gangrene; R33.9 Retention of urine, unspecified; M19.90 Unspecified osteoarthritis, unspecified site; K21.9 Gastro-esophageal reflux disease without esophagitis; D50.9 Iron deficiency anemia, unspecified; Z86.010 Personal history of colon polyps; Z79.899 Other long term (current) drug therapy; Z98.890 Other specified postprocedural states; Z87.891 Personal history of nicotine dependence; Z90.49 Acquired absence of other specified parts of digestive tract; Z79.84 Long term (current) use of oral hypoglycemic drugs
CPT/HCPCS: 36415; 74177; 80048; 80053; 80069; 82947; 83690; 83735; 85014; 85018; 85025; 86850; 86870; 86900; 86901; 86902; 86922; 87070; 87075; 87077; 87186; 87205; 96365-59; 99285-25; A9270; J0690; J0696; J1100; J2371; J2405; J2704; J3010; J7120; P9016; Q9967

== ENCOUNTER 2023-04-12 02:19 | Day surgery (SDC) | payer MEDICARE, OTHER ==
[~2023-04-12 02:19] MED LIST changes: +Acetaminophen325 M1 PO
== END 2023-04-12 22:45 | disposition home or self-care (01) ==
LOC: WOUND 02:19
DX: K63.2 Fistula of intestine (principal); L02.211 Cutaneous abscess of abdominal wall; E11.622 Type 2 diabetes mellitus with other skin ulcer; I10 Essential (primary) hypertension; E11.42 Type 2 diabetes mellitus with diabetic polyneuropathy; E78.5 Hyperlipidemia, unspecified; Z87.891 Personal history of nicotine dependence
CPT/HCPCS: A9270; G0463

== ENCOUNTER 2023-04-19 01:27 | Day surgery (SDC) | payer MEDICARE, OTHER | END 2023-04-19 22:44 | disposition home or self-care (01) | LOC: WOUND 01:27 | DX: K63.2 Fistula of intestine (principal); L02.211 Cutaneous abscess of abdominal wall; E11.622 Type 2 diabetes mellitus with other skin ulcer | CPT/HCPCS: G0463 ==

== ENCOUNTER 2023-05-03 04:38 | Day surgery (SDC) | payer MEDICARE, OTHER | END 2023-05-03 22:55 | disposition home or self-care (01) | LOC: WOUND 04:38 | DX: L02.211 Cutaneous abscess of abdominal wall (principal); K63.2 Fistula of intestine; E11.622 Type 2 diabetes mellitus with other skin ulcer | CPT/HCPCS: A9270 ==

== ENCOUNTER 2023-05-17 05:01 | Day surgery (SDC) | payer MEDICARE, OTHER | END 2023-05-17 22:46 | disposition home or self-care (01) | LOC: WOUND 05:01 | DX: K63.2 Fistula of intestine (principal); L02.211 Cutaneous abscess of abdominal wall; E11.622 Type 2 diabetes mellitus with other skin ulcer | CPT/HCPCS: G0463 ==

== ENCOUNTER 2023-05-28 12:52 | Inpatient (IN) | payer MEDICARE, OTHER ==
[~2023-05-28] VITALS: Ht 142.2 cm; Wt 68.0 kg
[2023-05-28 13:43] LABS: BASOPHILS ABSOLUTE AUTO 0.02 K/mm3 (0.00-0.23); BASOPHILS PERCENT AUTO 0 % (0-2); EOSINOPHILS ABSOLUTE AUTO 0.14 K/mm3 (0.00-0.68); EOSINOPHILS PERCENT AUTO 2 % (0-6); Hematocrit 22.7 % (33.0-51.0); Hemoglobin 7.2 g/dL (11.5-16.0); IMMATURE GRAN ABSOLUTE AUTO 0.04 K/mm3 (0.00-0.10); IMMATURE GRAN PERCENT AUTO 1 % (0-1); LYMPHOCYTES ABSOLUTE AUTO 1.48 K/mm3 (0.84-5.20); LYMPHOCYTES PERCENT AUTO 23 % (21-46); MONOCYTES ABSOLUTE AUTO 0.47 K/mm3 (0.16-1.47); MONOCYTES PERCENT AUTO 7 % (4-13); Mean Corpuscular HGB 30.9 pg (26.0-34.0); Mean Corpuscular HGB Conc 31.7 g/dL (31.5-36.5); Mean Corpuscular Volume 97 fL (80-100); Mean Platelet Volume 9.7 fL (9.1-12.4); NEUTROPHILS ABSOLUTE AUTO 4.44 K/mm3 (1.96-9.15); NEUTROPHILS PERCENT AUTO 67 % (41-73); Platelet Count 283 K/mm3 (150-400); RDW Standard Deviation 53.1 fL (35.1-46.3); Red Blood Cell Count 2.33 M/mm3 (3.80-5.20); White Blood Cell Count 6.59 K/mm3 (4.00-11.30)
[2023-05-28 14:22] LABS: Albumin, Blood 2.6 g/dL (3.4-5.0); Albumin/Globulin Ratio 0.6 (0.8-1.8); Bilirubin, Total 0.2 mg/dL (0.1-1.0); Bun/Creatinine Ratio 25.2 (12.0-20.0); Creatinine, Blood 1.51 mg/dL (0.40-1.00); Globulin, Blood 4.3 g/dL (2.2-4.0); Potassium, Blood 5.8 mmol/L (3.5-5.5); Total Protein, Blood 6.9 g/dL (6.4-8.2)
[2023-05-28] MEDS ORDERED: PREG50 PO (19:18)
[2023-05-28] MEDS ORDERED: LOSA25 PO (19:18)
[2023-05-28] MEDS ORDERED: GABA100 PO (19:20)
[2023-05-28 20:00] LABS: Hematocrit 23.8 % (33.0-51.0); Hemoglobin 7.6 g/dL (11.5-16.0)
[2023-05-28 20:44] LABS: Percent Saturation 15.1 % (15.0-50.0)
[2023-05-28 21:05] VITALS: BP 159/71
[2023-05-28] MEDS ORDERED: FISH OIL 1,0001 EA10 PO (21:12)
[2023-05-28] MEDS ORDERED: VITAMIN B COMP1 EAC1 PO (21:14)
[2023-05-28] MEDS ORDERED: DOCU100 PO (21:15)
[2023-05-28] MEDS ORDERED: IBUP200 PO (21:17)
[2023-05-28] MEDS ORDERED: ALUM-MAG HYDRO360 M1 PO (21:17)
[2023-05-28] MEDS ORDERED: LOPE2C PO (21:18)
[2023-05-28] MEDS ORDERED: Milk of Magnesia PO (21:19)
[2023-05-28 22:56] LABS: Bun/Creatinine Ratio 25.2 (12.0-20.0); Calcium, Blood 8.4 mg/dL (8.5-10.1); Creatinine, Blood 1.51 mg/dL (0.40-1.00); Potassium, Blood 5.3 mmol/L (3.5-5.5)
--- NOTE | 2023-05-28 23:40 | NUR ---
ORDERED BMP ORDER FOR BMP ORDERED BY DR GEORGE FOR 2299. NOTED AT 2329 THAT PT HAD BEEN NOT BEEN DRAWN BUT ORDER WAS LOGGED COMPLETED WITH NO RESULT REPORTED. CALLED LAB, TALKED WITH LIDA. THE ORDER WAS LOGGED PER LAB TO BE "PER NURSE" TO BE ADDED TO THE 1899 COLLECTION. IT WAS NOT OKED BY THIS NURSE TO BE ADDED. REQUESTED THAT THE LAB BE DRAWN, ORDERED. LAB WILL BE HERE TO DRAW PT. CARE ONGOING.
[2023-05-29 00:19] LABS: Bun/Creatinine Ratio 24.5 (12.0-20.0); Creatinine, Blood 1.51 mg/dL (0.40-1.00)
[2023-05-29 02:11] LABS: Hematocrit 23.3 % (33.0-51.0); Hemoglobin 7.5 g/dL (11.5-16.0)
--- NOTE | 2023-05-29 04:02 | NUR ---
NOTE PT RESTING. SR/SB. RATE 55 WITH REST. VSS. H/L. HAS NOT VOIDED SINCE THE ER. DENIED PAIN OR DISCOMFORT. POTASSIUM LEVEL STABLE. CARE ONGOING.
[2023-05-29 05:29] VITALS: BP 146/63
[2023-05-29 05:34] LABS: Source, Urine Clean Catch
[2023-05-29 05:38] LABS: Bilirubin, Urine Neg (Neg); Blood, Urine 4+ (Neg); Glucose Qualitative, Urine Neg (Neg); Ketones, Urine Neg (Neg); Leukocyte Esterase, Urine Neg (Neg); Nitrite, Urine Neg (Neg); Protein, Urine 3+ (Neg); Urobilinogen, Urine NORM (Normal)
[2023-05-29 06:13] LABS: Appearance, Urine Clear (Clear); Bacteria Not Seen /hpf; Color, Urine Yellow (P-Yellow); Squamous Epithelial Cells Rare /hpf (Few); White Blood Cells, Urine Not Seen /hpf (0-5)
[2023-05-29 06:20] LABS: BASOPHILS ABSOLUTE AUTO 0.03 K/mm3 (0.00-0.23); BASOPHILS PERCENT AUTO 1 % (0-2); EOSINOPHILS PERCENT AUTO 2 % (0-6); Hematocrit 24.8 % (33.0-51.0); IMMATURE GRAN ABSOLUTE AUTO 0.03 K/mm3 (0.00-0.10); IMMATURE GRAN PERCENT AUTO 1 % (0-1); LYMPHOCYTES ABSOLUTE AUTO 1.03 K/mm3 (0.84-5.20); LYMPHOCYTES PERCENT AUTO 25 % (21-46); MONOCYTES ABSOLUTE AUTO 0.34 K/mm3 (0.16-1.47); MONOCYTES PERCENT AUTO 8 % (4-13); Mean Corpuscular HGB 31.7 pg (26.0-34.0); Mean Corpuscular HGB Conc 32.3 g/dL (31.5-36.5); Mean Corpuscular Volume 98 fL (80-100); Mean Platelet Volume 9.7 fL (9.1-12.4); NEUTROPHILS ABSOLUTE AUTO 2.68 K/mm3 (1.96-9.15); NEUTROPHILS PERCENT AUTO 64 % (41-73); Platelet Count 321 K/mm3 (150-400); RDW Standard Deviation 53.4 fL (35.1-46.3); Red Blood Cell Count 2.52 M/mm3 (3.80-5.20); White Blood Cell Count 4.21 K/mm3 (4.00-11.30)
[2023-05-29 06:40] LABS: Albumin, Blood 2.4 g/dL (3.4-5.0); Albumin/Globulin Ratio 0.6 (0.8-1.8); Bilirubin, Total 0.3 mg/dL (0.1-1.0); Bun/Creatinine Ratio 24.7 (12.0-20.0); Calcium, Blood 8.2 mg/dL (8.5-10.1); Creatinine, Blood 1.54 mg/dL (0.40-1.00); Globulin, Blood 4.2 g/dL (2.2-4.0); Potassium, Blood 5.6 mmol/L (3.5-5.5); Total Protein, Blood 6.6 g/dL (6.4-8.2)
[2023-05-29 07:24] VITALS: BP 146/66
[2023-05-29 09:10] VITALS: BP 138/59
--- NOTE | 2023-05-29 09:44 | NUR ---
PATIENT GAVE VERBAL PERMISSION TO TAKE CARE OF THEM TODAY
[2023-05-29 11:54] VITALS: BP 143/62
[2023-05-29 15:13] LABS: Hematocrit 25.1 % (33.0-51.0); Hemoglobin 7.8 g/dL (11.5-16.0)
[2023-05-29 15:39] LABS: Bun/Creatinine Ratio 23.7 (12.0-20.0); Calcium, Blood 8.2 mg/dL (8.5-10.1); Creatinine, Blood 1.77 mg/dL (0.40-1.00); Potassium, Blood 5.7 mmol/L (3.5-5.5)
[2023-05-29 15:40] VITALS: BP 158/64
[2023-05-29 19:17] VITALS: BP 147/57
--- NOTE | 2023-05-29 20:14 | NUR ---
SHIFT SUMMARY- PT ALERT AND ORIENTED. SHE HAS HAD NO C/O PAIN TODAY. SHE HAS BEEN A 1PA TO THE BATHROOM T/O THE DAY. CALLS APPROPRIATELY. PT WAS ASISTED TO THE BATHROOM AT THE CHANGE OF SHIFT. ENERGY CONSERVATION SPECIALIST ASSISTED HER BACK TO BED. PT IS CURRENTLY IN BED NO S&S OF DISTRESS.
--- NOTE | 2023-05-30 03:47 | NUR ---
NOTE PT RESTING QUIETLY. USING CALL LIGHT APPROPRIATELY. VSS. DENIED DISCOMFORT. UP TO BSC WITH HER WALKER AND SBA. GAIT STEADY. H/L. RA. SLIPPY SOCKS ON AND BED LOW LOCKED. CALL LIGHT WITH INREACH. ONGOING.
[2023-05-30 04:57] VITALS: BP 128/52
[2023-05-30 06:31] LABS: Hematocrit 21.4 % (33.0-51.0); Mean Corpuscular HGB 31.7 pg (26.0-34.0); Mean Corpuscular HGB Conc 32.7 g/dL (31.5-36.5); Mean Corpuscular Volume 97 fL (80-100); Platelet Count 289 K/mm3 (150-400); RDW Coefficient Variation 15.3 % (11.7-14.2); RDW Standard Deviation 53.9 fL (35.1-46.3); Red Blood Cell Count 2.21 M/mm3 (3.80-5.20); White Blood Cell Count 5.24 K/mm3 (4.00-11.30)
[2023-05-30 07:05] LABS: Albumin, Blood 2.2 g/dL (3.4-5.0); Anion Gap 8 mmol/L (6-16); Blood Urea Nitrogen 48 mg/dL (8-24); Bun/Creatinine Ratio 26.4 (12.0-20.0); CO2, Blood 20 mmol/L (21-32); Calcium, Blood 7.7 mg/dL (8.5-10.1); Chloride, Blood 110 mmol/L (98-108); Creatinine, Blood 1.82 mg/dL (0.40-1.00); Glomerular Filtration Rate 27 (60-); Glucose, Blood 101 mg/dL (70-99); Magnesium, Blood 1.7 mg/dL (1.6-2.4); Phosphorus, Blood 6.3 mg/dL (2.5-4.9); Potassium, Blood 5.3 mmol/L (3.5-5.5); Sodium, Blood 138 mmol/L (136-145)
[2023-05-30 07:15] VITALS: BP 138/60
[2023-05-30 09:44] VITALS: BP 137/60
[2023-05-30 15:18] VITALS: BP 163/65
[2023-05-30 20:01] VITALS: BP 148/58
--- NOTE | 2023-05-30 20:33 | NUR ---
SHIFT SUMMARY- PT ALERT, ORIENTED, 1P SBA TO THE BATHROOM. SHE HAS HAD NO ACUTE CHANGES, BEDSIDE REPORT COMPLETED WITH NIGHT RN RAMOS, NO S&S OF DISTRESS NOTED PT ON ROOM AIR.
[2023-05-30 23:14] VITALS: BP 154/65
--- NOTE | 2023-05-31 04:07 | NUR ---
SHIFT SUMMARY SHIRLEY WAS ALERT AND ORIENTED X 3-4 ON ASSESSMENT. PT IV TO L AC WAS OCCLUDED, IT WAS REPLACED THIS SHIFT WITH A 22G TO LFA. PT HAD AN ANXIETY ATTACK AROUND 2330 WHERE SHE BECAME SOB, VITALS REMAINED STABLE THROUGHOUT. I WAS ABLE TO RESOLVE THE EPISODE WITH THERAPEUTIC COMMUNICATION BREATHING EXERCISES AND GUIDED IMAGERY. PT COMPLAINS OF PAIN IN LOWER RIGHT EXTREMITY SECONDARY TO EDEMA, MEDS PER EMAR, PT WISHES TO HOLD OFF USING PAIN MEDS STRONGER THAN TYLENOL AT THIS TIME. PT RESTING IN BED AT A LOW POSITION WITH CALL LIGHT IN REACH.
[2023-05-31 04:57] VITALS: BP 113/52
[2023-05-31 05:54] LABS: Hematocrit 21.9 % (33.0-51.0); Hemoglobin 7.1 g/dL (11.5-16.0); Mean Corpuscular HGB 31.1 pg (26.0-34.0); Mean Corpuscular HGB Conc 32.4 g/dL (31.5-36.5); Mean Corpuscular Volume 96 fL (80-100); Mean Platelet Volume 10.3 fL (9.1-12.4); Platelet Count 305 K/mm3 (150-400); RDW Coefficient Variation 15.1 % (11.7-14.2); RDW Standard Deviation 52.8 fL (35.1-46.3); Red Blood Cell Count 2.28 M/mm3 (3.80-5.20); White Blood Cell Count 6.57 K/mm3 (4.00-11.30)
[2023-05-31 06:20] LABS: Albumin, Blood 2.4 g/dL (3.4-5.0); Anion Gap 6 mmol/L (6-16); Blood Urea Nitrogen 60 mg/dL (8-24); Bun/Creatinine Ratio 27.6 (12.0-20.0); CO2, Blood 21 mmol/L (21-32); Calcium, Blood 7.5 mg/dL (8.5-10.1); Chloride, Blood 110 mmol/L (98-108); Creatinine, Blood 2.17 mg/dL (0.40-1.00); Glomerular Filtration Rate 22 (60-); Glucose, Blood 112 mg/dL (70-99); Phosphorus, Blood 6.2 mg/dL (2.5-4.9); Potassium, Blood 5.2 mmol/L (3.5-5.5); Sodium, Blood 137 mmol/L (136-145)
[2023-05-31 07:19] VITALS: BP 113/53
[2023-05-31 15:17] VITALS: BP 151/66
--- NOTE | 2023-05-31 16:41 | NUR ---
SHIFT SUMMARY PATIENT IS ALERT AND ORIENTED. PATIENT HAS HAD NO ACUTE EVENTS THIS SHIFT. VITAL SIGNS REVIEWED. PATIENT HAD A BATH TODAY. NO EVENTS ON TELE. PATIENT HAS NOT COMPLAINED OF PAIN, NAUSEA, SOB OR VOMITTING THIS SHIFT. PATIENT HAS BEEN A ONE PERSON ASSIST. PATIENT CBG HAS BEEN WELL MAINTAINED. BED IN LOCKED AND LOWEST POSITION. CALL LIGHT IN PLACE. WILL MONITOR UNTIL SHIFT CHANGE.
[2023-05-31 19:23] VITALS: BP 151/62
--- NOTE | 2023-06-01 01:27 | NUR ---
05/31/230 TOOK OVER CARE OF PT FROM GUY BROWN RN. PT LYING IN BED, EYES CLOSED, WAKES EASILY TO VERBAL STIMULI. DENIES NEED FOR ANYTHING AT THIS TIME. NO APPARENT SIGNS OF DISTRESS. CALL LIGHT IS IN REACH.
--- NOTE | 2023-06-01 01:28 | NUR ---
PT LYING IN BED, EYES CLOSED, APPEARS TO BE RESTING. BREATHING IS EVEN, UNLABORED. NO APPARENT SIGNS OF DISTRESS. CALL LIGHT IS IN REACH.
--- NOTE | 2023-06-01 02:18 | NUR ---
REPORT GIVEN TO ASHLEY BRUNSON WHO IS NOW TAKING OVER CARE OF PT.
[2023-06-01 02:24] VITALS: BP 130/58
--- NOTE | 2023-06-01 05:40 | NUR ---
SHIFT SUMMARY PT A&OX4 AND ANSWERS QUESTIONS APPROPRIATELY. PT SLEPT THROUGH MOST OF THE SHIFT WITHOUT COMPLAINTS. LUNGS SOUND COARSE BUT PT MAINTAINS O2 SATS ABOVE 90% WITH RA. NO ACUTE EVENTS OCCURED DURING SHIFT. PT VSS. PT LEFT IN POSITION OF SAFETY WITH PROPER FALL PRECAUTIONS IN PLACE AND CALL LIGHT WITHIN REACH.
[2023-06-01 06:09] LABS: Hematocrit 23.1 % (33.0-51.0); Hemoglobin 7.5 g/dL (11.5-16.0); Mean Corpuscular HGB 31.5 pg (26.0-34.0); Mean Corpuscular HGB Conc 32.5 g/dL (31.5-36.5); Mean Corpuscular Volume 97 fL (80-100); Mean Platelet Volume 10.5 fL (9.1-12.4); Platelet Count 274 K/mm3 (150-400); RDW Coefficient Variation 15.3 % (11.7-14.2); RDW Standard Deviation 53.2 fL (35.1-46.3); Red Blood Cell Count 2.38 M/mm3 (3.80-5.20); White Blood Cell Count 7.23 K/mm3 (4.00-11.30)
[2023-06-01 06:54] LABS: Albumin, Blood 2.4 g/dL (3.4-5.0); Anion Gap 8 mmol/L (6-16); Blood Urea Nitrogen 64 mg/dL (8-24); Bun/Creatinine Ratio 29.9 (12.0-20.0); CO2, Blood 17 mmol/L (21-32); Calcium, Blood 7.8 mg/dL (8.5-10.1); Chloride, Blood 112 mmol/L (98-108); Creatinine, Blood 2.14 mg/dL (0.40-1.00); Glomerular Filtration Rate 23 (60-); Glucose, Blood 120 mg/dL (70-99); Magnesium, Blood 1.7 mg/dL (1.6-2.4); Phosphorus, Blood 6.5 mg/dL (2.5-4.9); Potassium, Blood 5.3 mmol/L (3.5-5.5); Sodium, Blood 137 mmol/L (136-145)
[2023-06-01 07:31] VITALS: BP 142/60
[2023-06-01 15:30] VITALS: BP 157/58
[2023-06-01 17:30] LABS: Campylobacter Sp Not Detected (NOT DETECT)
[2023-06-01 17:31] LABS: Adenovirus F 40/41 Not Detected (NOT DETECT); Astrovirus Not Detected (NOT DETECT); Cryptosporidium Not Detected (NOT DETECT); Cyclospora Cayetanensis Not Detected (NOT DETECT); E. Coli O157 Not Detected (NOT DETECT); Entamoeba Histolytica Not Detected (NOT DETECT); Enteroaggregative E. coli-EAEC Not Detected (NOT DETECT); Enteropathogenic E. coli-EPEC Not Detected (NOT DETECT); Enterotoxigenic E. coli-ETEC Not Detected (NOT DETECT); Giardia Lamblia Not Detected (NOT DETECT); Norovirus GI/GII Not Detected (NOT DETECT); Plesiomonas Shigelloides Not Detected (NOT DETECT); Rotavirus A Not Detected (NOT DETECT); Salmonella Sp Not Detected (NOT DETECT); Sapovirus Not Detected (NOT DETECT); Shiga Toxin-prod E. coli-STEC Not Detected (NOT DETECT); Shigella/Enteroin E. coli-EIEC Not Detected (NOT DETECT); Vibrio Cholerae Not Detected (NOT DETECT); Vibrio Sp Not Detected (NOT DETECT); Yersinia Enterocolitica Not Detected (NOT DETECT)
--- NOTE | 2023-06-01 18:24 | NUR ---
SHIFT SUMMARY PT AXO, PLEASANT AND COOPERATIVE WITH CARE. HAVING COPIOUS AMOUNT OF LIQUID YELLOW/ORANGE STOOL SPRAYING FROM HER RECTUM. . PT TOLERATED PO INTAKE OF DYE FOR IMAGING TO R/O FISTULA. SEE RESULTS. PT HAS OSTOMY BAG AND APPLIANCE OVER ABDOMINAL WOUND. DRAINING COPIOUS AMOUNTS OF CLEAR YELLOW/ORANGE FLUID WITH ODOR. DR MALAGON AWARE. DR MALAGON NOTIFIED OF COPIOUS NATURE OF LIQUID YELLOW STOOL, NEW ORDERS INITIATED. PT UP WITH 1 ASSIST WITH WALKER. PT DENIES PAIN, SOB AND NV THOUGH STATES SHE FEELS TERRIBLE. BED IN LOW POSITION, CALL LIGHT WITHIN REACH.
[2023-06-01 19:41] VITALS: BP 176/67
[2023-06-01 21:30] VITALS: BP 164/65
[2023-06-02 03:14] VITALS: BP 123/58
--- NOTE | 2023-06-02 05:10 | NUR ---
1900: ASSUMED CARE OF PT, BEDSIDE REPORT RECEIVED FROM MELITON PEREZ. PT IN THE RESTROOM WITH DIARHEA. DRAINAGE FROM COLOSTOMY/FISTULA SITE AT [facility] ABDOMEN. PT IS A/O X4, AMBULATORY WITH 4WW. ABLE TO MAKE NEEDS KNOWN AND USE THE CALL LIGHT. NEW OSTOMY APPLIACE PLACED FOR DRAINAGE. PT WAS UP LESS DURING THE NIGHT FOR DIARHEA, SEE EMR, PER PT COMPARED TO YESTERDAY. NO ACUTE EVENTS DURING THE NIGHT. SAFETY MEASURES TAKEN, NEEDS ADDRESSED.
[2023-06-02 06:31] LABS: BASOPHILS ABSOLUTE AUTO 0.02 K/mm3 (0.00-0.23); BASOPHILS PERCENT AUTO 1 % (0-2); EOSINOPHILS PERCENT AUTO 2 % (0-6); Hemoglobin 8.1 g/dL (11.5-16.0); IMMATURE GRAN ABSOLUTE AUTO 0.02 K/mm3 (0.00-0.10); IMMATURE GRAN PERCENT AUTO 1 % (0-1); LYMPHOCYTES ABSOLUTE AUTO 1.03 K/mm3 (0.84-5.20); LYMPHOCYTES PERCENT AUTO 24 % (21-46); MONOCYTES ABSOLUTE AUTO 0.46 K/mm3 (0.16-1.47); MONOCYTES PERCENT AUTO 11 % (4-13); Mean Corpuscular HGB 31.4 pg (26.0-34.0); Mean Corpuscular HGB Conc 32.4 g/dL (31.5-36.5); Mean Corpuscular Volume 97 fL (80-100); Mean Platelet Volume 10.9 fL (9.1-12.4); NEUTROPHILS ABSOLUTE AUTO 2.63 K/mm3 (1.96-9.15); NEUTROPHILS PERCENT AUTO 62 % (41-73); Platelet Count 289 K/mm3 (150-400); RDW Coefficient Variation 15.4 % (11.7-14.2); RDW Standard Deviation 53.6 fL (35.1-46.3); Red Blood Cell Count 2.58 M/mm3 (3.80-5.20); White Blood Cell Count 4.26 K/mm3 (4.00-11.30)
[2023-06-02 06:44] LABS: Bun/Creatinine Ratio 33.7 (12.0-20.0); Calcium, Blood 8.3 mg/dL (8.5-10.1); Creatinine, Blood 1.96 mg/dL (0.40-1.00); Potassium, Blood 4.4 mmol/L (3.5-5.5)
[2023-06-02 07:02] VITALS: BP 129/55
[2023-06-02 12:15] LABS: Base Excess Venous -13.9 mmol/L; Bicarbonate Venous 14.4 mmol/L (24.0-30.0); PCO2 Venous 31.5 mmHg (38-42)
[2023-06-02 12:17] LABS: pH Blood Venous 7.24 (7.34-7.37)
[2023-06-02 15:58] VITALS: BP 147/53
--- NOTE | 2023-06-02 16:20 | NUR ---
SHIFT SUMMARY PT UP TO BATHRM AT START OF SHIFT. PT STILL HAVING DIARRHEA, BUT NOT BAD YESTERDAY. PT IS SBA USING FWW WHEN UP IN RM. PT UP TO SHOWER AFTER BREAKFAST. DR MALAGON IN TO SEE PT LATER IN AM. PT MEDICALLY STABLE AND ABLE TO D/C WHEN GIFT BASKET PACKER AVAILABLE TO ARRANGE RETURN TO ASSISTED LIVING. PT IS PLEASANT AND CO-OP WITH CARE. PT ENCOURAGED TO GET UP TO CHAIR DURING THE DAY, PER DR MALAGON. CALL LT IN REACH. ABLE TO MAKE NEEDS KNOWN.
[2023-06-02 19:26] VITALS: BP 169/65
[2023-06-02 21:11] VITALS: BP 151/61
[2023-06-03 03:17] VITALS: BP 121/51
--- NOTE | 2023-06-03 04:00 | NUR ---
1900: ASSUMED CARE OF PT, BEDSIDE REPORT RECEIVED FROM MELITON PADGETT. PT IS LAYING IN BED WITH HOB ELEVATED. A/O X4, BREATHING IS EVEN AND UNLABORED. NO ACUTE AT THAT TIME. DURING THE NIGHT PT REPORTS ACID INDIGESTION. CALL TO PROVIDER, ORDER FOR TUMS RECEIVED. ASSISTED WITH BRUSHING DENTURES. PT REPORTS IMPROVEMENT. SAFETY MEASURES TAKEN, ALL NEEDS ADDRESSED THROUGH THE SHIFT.
[2023-06-03 05:39] LABS: Base Excess Venous -11.3 mmol/L; Bicarbonate Venous 16.1 mmol/L (24.0-30.0); PCO2 Venous 27.2 mmHg (38-42); pH Blood Venous 7.34 (7.34-7.37)
[2023-06-03 06:04] LABS: Creatinine, Blood 2.14 mg/dL (0.40-1.00); Potassium, Blood 4.5 mmol/L (3.5-5.5)
[2023-06-03 07:10] VITALS: BP 110/48
[2023-06-03 09:09] VITALS: BP 144/56
--- NOTE | 2023-06-03 11:56 | NUR ---
spoke to adolfo grant aware ostomy/fistula is draining fluid into ostomy bag. states has spoken to dr estrada and not pending surg at this time.
[2023-06-03 16:02] VITALS: BP 166/69
--- NOTE | 2023-06-03 17:31 | NUR ---
PT PLEASANT TODAY. NO C/O PAIN TODAY. KIDNEY DR IN TO SEE TODAY. DR MALAGON STATES THIS AM THAT HAS SPOKEN TO DR HIGUERA AND NO SURGERY PLANNED FOR THIS STAY AT THIS TIME. NO NEW CONCERNS NOTED. BED IN LOW POSITION, CALL LITE IN REACH, CALLS APPROP
[2023-06-03 18:10] VITALS: BP 190/67
[2023-06-03 18:51] VITALS: BP 155/61
[2023-06-04 00:24] VITALS: BP 190/67
[2023-06-04 04:52] VITALS: BP 128/53
[2023-06-04 05:44] LABS: Bun/Creatinine Ratio 37.3 (12.0-20.0); Calcium, Blood 7.8 mg/dL (8.5-10.1); Creatinine, Blood 2.01 mg/dL (0.40-1.00); Potassium, Blood 4.5 mmol/L (3.5-5.5)
--- NOTE | 2023-06-04 05:48 | NUR ---
1900: ASSUMED CARE OF PT. BESIDE REPORT RECEIVED FROM MELITON YORK. PT IS LAYING IN BED WITH HOB ELEVATED. A/O X4, BREATHING IS EVEN AND UNLABORED, NO ACUTE DISTRESS AT THIS TIME, REPORT DIARHEA HAS STOPPED. FISTULA CONTINUES TO DRAIN SMALL AMOUNTS OF FLUID AND GAS. PT REPORTS SHE IS READY TO GO HOME. CONCERNS FOR SURGICAL F/U R/T FISTULA. NO ACUTE EVENTS DURING THE NIGHT. SAFETY MEASURES TAKEN, ALL NEEDS ADDRESSED THROUGH THE SHIFT.
[2023-06-04 07:14] VITALS: BP 124/60
[2023-06-04] MEDS ORDERED: Calcium Carbon500 MG PO (11:21)
[2023-06-04] MEDS ORDERED: CHOLESTYRAMI239.4 G1 PO (11:22)
[2023-06-04] MEDS ORDERED: METO25 PO (11:23)
[2023-06-04] MEDS ORDERED: SODBIC650 PO (11:24)
[2023-06-04] MEDS ORDERED: VITAMIN D5000 UNIT PO (11:26)
--- NOTE | 2023-06-04 12:59 | NUR ---
DISCHARGE PT A&OX4, COOPERATIVE WITH CARE T/O SHIFT. NO ACUTE EVENTS THIS SHIFT. DENIED ANY CP/PRESSURE, HEADACHE, DIZZINESS, OR SOB AT THIS TIME. PATIENT'S DAUGHTER IS IN THE ROOM WITH HER. DISCUSSED DISCHARGE PACKET. PATIENT AND DAUGHTER DENIED ANY QUESTIONS OR CONCERNS. WHEELED OUT FOR DISCHARGE AT 1300.
[2023-06-05 22:23] LABS: IMMUNOGLOBULIN A 115 mg/dL (68-408); IMMUNOGLOBULIN G 1384 mg/dL (768-1632); IMMUNOGLOBULIN M 51 mg/dL (35-263)
[2023-06-05 22:29] LABS: ALBUMIN 2.91 g/dL (3.75-5.01); ALPHA 2 GLOBULIN 0.83 g/dL (0.48-1.05); BETA GLOBULIN 0.78 g/dL (0.48-1.10); GAMMA 1.28 g/dL (0.62-1.51); IMMUNOFIXATION REFLEX IFE Done; TOTAL PROTEIN,SERUM 6.2 g/dL (6.3-8.2)
== END 2023-06-04 13:12 | disposition home health service (06) | DRG 291 ==
LOC: ER 12:52 → MEDS 12:53 → ENPENDDIS 06-04 10:42 → MEDS 06-04 13:12
PROVIDERS: Hospitalist; Internal Medicine; Student in an Organized Health Care Education/Training Program; ADMIT Internal Medicine
DX: I11.0 Hypertensive heart disease with heart failure (principal); I50.33 Acute on chronic diastolic (congestive) heart failure; E87.20 Acidosis, unspecified; N18.4 Chronic kidney disease, stage 4 (severe); K63.2 Fistula of intestine; N17.9 Acute kidney failure, unspecified; K52.9 Noninfective gastroenteritis and colitis, unspecified; E11.22 Type 2 diabetes mellitus with diabetic chronic kidney disease; D63.1 Anemia in chronic kidney disease; E11.42 Type 2 diabetes mellitus with diabetic polyneuropathy; E87.5 Hyperkalemia; I16.0 Hypertensive urgency; E88.09 Other disorders of plasma-protein metabolism, not elsewhere classified; Z87.891 Personal history of nicotine dependence; Z90.49 Acquired absence of other specified parts of digestive tract
CPT/HCPCS: 36415; 71046; 74177; 76770; 80048; 80053; 80069; 81001; 82570; 82803; 82947; 83540; 83550; 83735; 83880; 84156; 84484; 84550; 85014; 85018; 85025; 85027; 87507; 93005; 93010; 93306; 96372; 96374; 96375; 96376; 97161; 99285-25; A9270; G0378; J0360; J1120; J1650; J1815; J1940; J7070; Q9967

== ENCOUNTER 2023-06-07 05:02 | Day surgery (SDC) | payer MEDICARE, OTHER ==
[~2023-06-07 05:02] MED LIST changes: +ALUM-MAG HYDRO360 M1 PO; +CHOLESTYRAMI239.4 G1 PO; +Calcium Carbon500 MG PO; +DOCU100 PO; +FISH OIL 1,0001 EA10 PO; +IBUP200 PO; +LOPE2C PO; +METO25 PO; +Milk of Magnesia PO; +PREG50 PO; +SODBIC650 PO; +VITAMIN B COMP1 EAC1 PO; +VITAMIN D5000 UNIT PO
== END 2023-06-07 22:57 | disposition home or self-care (01) ==
LOC: WOUND 05:02
DX: K63.2 Fistula of intestine (principal); L02.211 Cutaneous abscess of abdominal wall; E11.622 Type 2 diabetes mellitus with other skin ulcer
CPT/HCPCS: A9270; G0463

== ENCOUNTER 2023-06-21 01:53 | Day surgery (SDC) | payer MEDICARE, OTHER ==
[2023-06-21] MEDS ORDERED: Triamcinolone Acet 0.1% Cream 15 gm ONE (15:33)
== END 2023-06-21 22:46 | disposition home or self-care (01) ==
LOC: WOUND 01:53
DX: K63.2 Fistula of intestine (principal); L02.211 Cutaneous abscess of abdominal wall; E11.622 Type 2 diabetes mellitus with other skin ulcer
CPT/HCPCS: A9270; G0463

== ENCOUNTER 2023-06-25 00:07 | Day surgery (SDC) | payer MEDICARE, OTHER ==
[2023-06-25] MEDS ORDERED: Triamcinolone Acet 0.1% Cream 15 gm ONE (08:31)
== END 2023-06-25 23:43 | disposition home or self-care (01) ==
LOC: WOUND 00:07
DX: K63.2 Fistula of intestine (principal); L02.211 Cutaneous abscess of abdominal wall; E11.622 Type 2 diabetes mellitus with other skin ulcer
CPT/HCPCS: A9270; G0463

== ENCOUNTER 2023-06-28 01:35 | Day surgery (SDC) | payer MEDICARE, OTHER | END 2023-06-28 22:43 | disposition home or self-care (01) | LOC: WOUND 01:35 | DX: L02.211 Cutaneous abscess of abdominal wall (principal); E11.622 Type 2 diabetes mellitus with other skin ulcer; K63.2 Fistula of intestine | CPT/HCPCS: G0463 ==

== ENCOUNTER 2023-07-01 06:49 | Emergency (ER) | payer MEDICARE, OTHER ==
[~2023-07-01] VITALS: Ht 144.8 cm; Wt 63.5 kg
[2023-07-01 07:09] LABS: BASOPHILS ABSOLUTE AUTO 0.02 K/mm3 (0.00-0.23); BASOPHILS PERCENT AUTO 0 % (0-2); EOSINOPHILS ABSOLUTE AUTO 0.07 K/mm3 (0.00-0.68); EOSINOPHILS PERCENT AUTO 1 % (0-6); Hematocrit 21.1 % (33.0-51.0); Hemoglobin 6.6 g/dL (11.5-16.0); IMMATURE GRAN ABSOLUTE AUTO 0.03 K/mm3 (0.00-0.10); IMMATURE GRAN PERCENT AUTO 1 % (0-1); LYMPHOCYTES PERCENT AUTO 24 % (21-46); MONOCYTES ABSOLUTE AUTO 0.51 K/mm3 (0.16-1.47); MONOCYTES PERCENT AUTO 10 % (4-13); Mean Corpuscular HGB 30.7 pg (26.0-34.0); Mean Corpuscular HGB Conc 31.3 g/dL (31.5-36.5); Mean Corpuscular Volume 98 fL (80-100); Mean Platelet Volume 10.4 fL (9.1-12.4); NEUTROPHILS ABSOLUTE AUTO 3.17 K/mm3 (1.96-9.15); NEUTROPHILS PERCENT AUTO 63 % (41-73); Platelet Count 217 K/mm3 (150-400); RDW Coefficient Variation 15.2 % (11.7-14.2); RDW Standard Deviation 54.5 fL (35.1-46.3); Red Blood Cell Count 2.15 M/mm3 (3.80-5.20)
[2023-07-01 07:33] LABS: Albumin, Blood 2.1 g/dL (3.4-5.0); Albumin/Globulin Ratio 0.5 (0.8-1.8); Bilirubin, Total 0.2 mg/dL (0.1-1.0); Bun/Creatinine Ratio 21.9 (12.0-20.0); Creatinine, Blood 1.96 mg/dL (0.40-1.00); Globulin, Blood 3.9 g/dL (2.2-4.0); Potassium, Blood 4.5 mmol/L (3.5-5.5)
[2023-07-01] MEDS ORDERED: Furosemide 10 MG/ML 4ML Vial IV ONE (08:30)
[2023-07-01] MEDS ORDERED: NS 1,000 ML IV ONE (13:22)
[2023-07-01] MEDS ORDERED: Lasix20 MG PO (13:31)
[2023-07-01 13:41] LABS: Source, Urine Foley catheter
[2023-07-01 13:46] LABS: Appearance, Urine Clear (Clear); Bilirubin, Urine Neg (Neg); Blood, Urine 5+ (Neg); Color, Urine Yellow (P-Yellow); Glucose Qualitative, Urine Neg (Neg); Ketones, Urine Neg (Neg); Leukocyte Esterase, Urine Neg (Neg); Nitrite, Urine Neg (Neg); Protein, Urine 3+ (Neg); Specific Gravity, Urine 1.015 (1.003-1.022); Urobilinogen, Urine NORM (Normal)
[2023-07-01 14:20] LABS: Bacteria Few /hpf; Squamous Epithelial Cells Few /hpf (Few)
[2023-07-01 14:21] LABS: Yeast/Fungi Urine Rare /hpf
[2023-07-01] MEDS ORDERED: NS 1,000 ML IV SCH (15:00)
[2023-07-01 16:00] VITALS: BP 183/65
== END 2023-07-01 19:01 | disposition home or self-care (01) ==
LOC: ER 06:49
PROVIDERS: Emergency Medicine
DX: E11.22 Type 2 diabetes mellitus with diabetic chronic kidney disease (principal); N18.9 Chronic kidney disease, unspecified; D63.1 Anemia in chronic kidney disease; R33.9 Retention of urine, unspecified; E87.70 Fluid overload, unspecified; E11.42 Type 2 diabetes mellitus with diabetic polyneuropathy; E78.00 Pure hypercholesterolemia, unspecified; K21.9 Gastro-esophageal reflux disease without esophagitis
CPT/HCPCS: 36430; 51702; 71045; 80053; 81001; 83880; 84484; 85025; 86850; 86870; 86900; 86901; 86922; 93005; 93010; 96374; 99285-25; J1940; J7030; P9016

== ENCOUNTER 2023-07-05 03:24 | Day surgery (SDC) | payer MEDICARE, OTHER ==
[~2023-07-05 03:24] MED LIST changes: +Lasix20 MG PO
[2023-07-05] MEDS ORDERED: Triamcinolone Acet 0.1% Cream 15 gm ONE (13:12)
== END 2023-07-05 22:43 | disposition home or self-care (01) ==
LOC: WOUND 03:24
DX: K63.2 Fistula of intestine (principal); L02.211 Cutaneous abscess of abdominal wall; E11.622 Type 2 diabetes mellitus with other skin ulcer
CPT/HCPCS: A9270; G0463

== ENCOUNTER → 2023-07-06 | Outpatient (CLI) | payer MEDICARE, OTHER ==
[2023-07-06 18:49] LABS: BASOPHILS ABSOLUTE AUTO 0.03 K/mm3 (0.00-0.23); BASOPHILS PERCENT AUTO 1 % (0-2); EOSINOPHILS ABSOLUTE AUTO 0.08 K/mm3 (0.00-0.68); EOSINOPHILS PERCENT AUTO 1 % (0-6); Hematocrit 25.1 % (33.0-51.0); Hemoglobin 7.9 g/dL (11.5-16.0); IMMATURE GRAN ABSOLUTE AUTO 0.02 K/mm3 (0.00-0.10); IMMATURE GRAN PERCENT AUTO 0 % (0-1); LYMPHOCYTES PERCENT AUTO 14 % (21-46); MONOCYTES ABSOLUTE AUTO 0.44 K/mm3 (0.16-1.47); MONOCYTES PERCENT AUTO 8 % (4-13); Mean Corpuscular HGB 30.3 pg (26.0-34.0); Mean Corpuscular HGB Conc 31.5 g/dL (31.5-36.5); Mean Corpuscular Volume 96 fL (80-100); Mean Platelet Volume 11.5 fL (9.1-12.4); NEUTROPHILS ABSOLUTE AUTO 4.29 K/mm3 (1.96-9.15); NEUTROPHILS PERCENT AUTO 76 % (41-73); Platelet Count 263 K/mm3 (150-400); RDW Coefficient Variation 14.2 % (11.7-14.2); RDW Standard Deviation 49.8 fL (35.1-46.3); Red Blood Cell Count 2.61 M/mm3 (3.80-5.20); White Blood Cell Count 5.66 K/mm3 (4.00-11.30)
[2023-07-06 19:53] LABS: Albumin, Blood 2.3 g/dL (3.4-5.0); Albumin/Globulin Ratio 0.6 (0.8-1.8); Bilirubin, Total 0.4 mg/dL (0.1-1.0); Bun/Creatinine Ratio 22.7 (12.0-20.0); Calcium, Blood 7.3 mg/dL (8.5-10.1); Creatinine, Blood 2.07 mg/dL (0.40-1.00); Globulin, Blood 4.1 g/dL (2.2-4.0); Potassium, Blood 4.1 mmol/L (3.5-5.5); Total Protein, Blood 6.4 g/dL (6.4-8.2)
[2023-07-06 20:48] LABS: Creatinine, Urine Random 24.3 mg/dL (27.00-270.00); Protein, Urine Random 209.6 mg/dL (0.0-11.9); Protein/Creat Ratio, Ur Random 8.6
[2023-07-06 20:50] LABS: Microalb/Creat Ratio UR, Rand 5020.58 mg/g (0.000-30.000)
== END | disposition home or self-care (01) ==
LOC: LAB SHORT 14:49
PROVIDERS: Family Medicine
DX: R80.1 Persistent proteinuria, unspecified (principal)
CPT/HCPCS: 80053; 82043; 82570; 84156; 85025

== ENCOUNTER 2023-08-23 02:37 | Day surgery (SDC) | payer MEDICARE, OTHER | END 2023-08-23 22:56 | disposition home or self-care (01) | LOC: WOUND 02:37 | DX: K63.2 Fistula of intestine (principal); L02.211 Cutaneous abscess of abdominal wall; E11.622 Type 2 diabetes mellitus with other skin ulcer | CPT/HCPCS: A6213; G0463 ==

== ENCOUNTER 2023-09-03 10:13 | Emergency (ER) | payer OTHER, MEDICARE ==
[~2023-09-03] VITALS: Ht 147.3 cm; Wt 90.7 kg
[2023-09-03 10:16] VITALS: BP 175/73
[2023-09-03] MEDS ORDERED: Morphine Sulfate 4 MG/1 ML Injection IV ONE ×2 (10:25→13:55)
[2023-09-03 10:44] LABS: BASOPHILS ABSOLUTE AUTO 0.02 K/mm3 (0.00-0.23); BASOPHILS PERCENT AUTO 0 % (0-2); EOSINOPHILS ABSOLUTE AUTO 0.05 K/mm3 (0.00-0.68); EOSINOPHILS PERCENT AUTO 1 % (0-6); Hematocrit 22.2 % (33.0-51.0); Hemoglobin 7.3 g/dL (11.5-16.0); IMMATURE GRAN ABSOLUTE AUTO 0.07 K/mm3 (0.00-0.10); IMMATURE GRAN PERCENT AUTO 2 % (0-1); LYMPHOCYTES ABSOLUTE AUTO 0.88 K/mm3 (0.84-5.20); LYMPHOCYTES PERCENT AUTO 19 % (21-46); MONOCYTES ABSOLUTE AUTO 0.33 K/mm3 (0.16-1.47); MONOCYTES PERCENT AUTO 7 % (4-13); Mean Corpuscular HGB 32.2 pg (26.0-34.0); Mean Corpuscular HGB Conc 32.9 g/dL (31.5-36.5); Mean Corpuscular Volume 98 fL (80-100); Mean Platelet Volume 10.8 fL (9.1-12.4); NEUTROPHILS ABSOLUTE AUTO 3.33 K/mm3 (1.96-9.15); NEUTROPHILS PERCENT AUTO 71 % (41-73); Platelet Count 230 K/mm3 (150-400); RDW Coefficient Variation 14.6 % (11.7-14.2); RDW Standard Deviation 51.9 fL (35.1-46.3); Red Blood Cell Count 2.27 M/mm3 (3.80-5.20); White Blood Cell Count 4.68 K/mm3 (4.00-11.30)
[2023-09-03 10:52] LABS: International Normalized Ratio 0.99; Prothrombin Time Results 10.6 Sec (9.7-11.5)
[2023-09-03 10:58] LABS: Albumin, Blood 2.7 g/dL (3.4-5.0); Albumin/Globulin Ratio 0.5 (0.8-1.8); Bilirubin, Total 0.3 mg/dL (0.1-1.0); Bun/Creatinine Ratio 26.8 (12.0-20.0); Calcium, Blood 8.6 mg/dL (8.5-10.1); Creatinine, Blood 2.24 mg/dL (0.40-1.00); Globulin, Blood 5.8 g/dL (2.2-4.0); Potassium, Blood 4.8 mmol/L (3.5-5.5); Total Protein, Blood 8.5 g/dL (6.4-8.2)
[2023-09-03] MEDS ORDERED: NS 1,000 ML IV SCH (12:35)
== END 2023-09-03 16:25 | disposition home or self-care (01) ==
LOC: ER 10:13
PROVIDERS: Emergency Medicine
DX: S09.90XA Unspecified injury of head, initial encounter (principal); S13.4XXA Sprain of ligaments of cervical spine, initial encounter; S30.0XXA Contusion of lower back and pelvis, initial encounter; E11.9 Type 2 diabetes mellitus without complications; W01.0XXA Fall on same level from slipping, tripping and stumbling without subsequent striking against object, initial encounter; Z87.891 Personal history of nicotine dependence; Z79.899 Other long term (current) drug therapy
CPT/HCPCS: 70450; 72072; 72100; 72125; 72170; 80053; 85025; 85610; 93005; 93010; 96361; 96374; 99284-25; J2270; J7030

== ENCOUNTER → 2023-09-07 | Outpatient (CLI) | payer MEDICARE, OTHER ==
[2023-09-07 19:43] LABS: Albumin/Globulin Ratio 0.5 (0.8-1.8); Bilirubin, Total 0.4 mg/dL (0.1-1.0); Bun/Creatinine Ratio 31.1 (12.0-20.0); Calcium, Blood 8.7 mg/dL (8.5-10.1); Creatinine, Blood 2.22 mg/dL (0.40-1.00); Globulin, Blood 5.8 g/dL (2.2-4.0); Potassium, Blood 4.5 mmol/L (3.5-5.5); Total Protein, Blood 8.8 g/dL (6.4-8.2)
== END | disposition home or self-care (01) ==
LOC: LAB 18:59 → LAB SHORT 18:59
PROVIDERS: Family Medicine
DX: I50.30 Unspecified diastolic (congestive) heart failure (principal)
CPT/HCPCS: 80053

== ENCOUNTER 2023-09-20 03:32 | Day surgery (SDC) | payer MEDICARE, OTHER ==
[2023-09-20] MEDS ORDERED: Lidocaine HCl 4% Cream 5 GM ONE (08:01)
[2023-09-20] MEDS ORDERED: Silver Nitr/Potassium Nitrate 1 EA APPL ONE (08:07)
== END 2023-09-20 23:07 | disposition home or self-care (01) ==
LOC: WOUND 03:32
PROC: 0H57XZZ Destruction of Abdomen Skin, External Approach (ICD-10-PCS; principal; 2023-09-20)
DX: K63.2 Fistula of intestine (principal); L02.211 Cutaneous abscess of abdominal wall; E11.622 Type 2 diabetes mellitus with other skin ulcer
CPT/HCPCS: A6213; A9270

== ENCOUNTER 2023-10-23 00:41 | Emergency (ER) | payer MEDICARE, OTHER ==
[~2023-10-23] VITALS: Ht 142.2 cm; Wt 68.5 kg
[2023-10-23 02:01] LABS: BASOPHILS ABSOLUTE AUTO 0.01 K/mm3 (0.00-0.23); BASOPHILS PERCENT AUTO 0 % (0-2); EOSINOPHILS ABSOLUTE AUTO 0.08 K/mm3 (0.00-0.68); EOSINOPHILS PERCENT AUTO 2 % (0-6); Hematocrit 20.1 % (33.0-51.0); Hemoglobin 6.8 g/dL (11.5-16.0); IMMATURE GRAN ABSOLUTE AUTO 0.06 K/mm3 (0.00-0.10); IMMATURE GRAN PERCENT AUTO 2 % (0-1); LYMPHOCYTES ABSOLUTE AUTO 0.98 K/mm3 (0.84-5.20); LYMPHOCYTES PERCENT AUTO 29 % (21-46); MONOCYTES ABSOLUTE AUTO 0.44 K/mm3 (0.16-1.47); MONOCYTES PERCENT AUTO 13 % (4-13); Mean Corpuscular HGB 32.4 pg (26.0-34.0); Mean Corpuscular HGB Conc 33.8 g/dL (31.5-36.5); Mean Corpuscular Volume 96 fL (80-100); NEUTROPHILS ABSOLUTE AUTO 1.85 K/mm3 (1.96-9.15); NEUTROPHILS PERCENT AUTO 54 % (41-73); Platelet Count 227 K/mm3 (150-400); RDW Coefficient Variation 13.2 % (11.7-14.2); RDW Standard Deviation 45.7 fL (35.1-46.3); White Blood Cell Count 3.42 K/mm3 (4.00-11.30)
[2023-10-23 02:10] LABS: Albumin, Blood 2.7 g/dL (3.4-5.0); Albumin/Globulin Ratio 0.5 (0.8-1.8); Bilirubin, Total 0.3 mg/dL (0.1-1.0); Bun/Creatinine Ratio 38.4 (12.0-20.0); Calcium, Blood 8.4 mg/dL (8.5-10.1); Creatinine, Blood 2.11 mg/dL (0.40-1.00); Globulin, Blood 5.2 g/dL (2.2-4.0); Potassium, Blood 4.4 mmol/L (3.5-5.5); Total Protein, Blood 7.9 g/dL (6.4-8.2)
[2023-10-23 09:00] VITALS: BP 133/50
== END 2023-10-23 09:08 | disposition home or self-care (01) ==
LOC: ER 00:41
PROVIDERS: Emergency Medicine
DX: D64.9 Anemia, unspecified (principal); K21.9 Gastro-esophageal reflux disease without esophagitis; E11.42 Type 2 diabetes mellitus with diabetic polyneuropathy; E78.00 Pure hypercholesterolemia, unspecified; Z87.891 Personal history of nicotine dependence; Z79.899 Other long term (current) drug therapy
CPT/HCPCS: 80053; 85025; 86850; 86870; 86900; 86901; 86905; 93005; 93010; 99285-25

== ENCOUNTER → 2023-11-08 | Outpatient (CLI) | payer MEDICARE, OTHER ==
[2023-11-08 16:52] LABS: Source, Urine Clean Catch
[2023-11-08 19:51] LABS: Appearance, Urine Clear (Clear); Bilirubin, Urine Neg (Neg); Blood, Urine 3+ (Neg); Glucose Qualitative, Urine Neg (Neg); Ketones, Urine Neg (Neg); Leukocyte Esterase, Urine Neg (Neg); Nitrite, Urine Neg (Neg); Protein, Urine 3+ (Neg); Urobilinogen, Urine NORM (Normal); pH, Urine 6.5 (5.0-8.0)
[2023-11-08 20:32] LABS: Color, Urine Pale Yellow (P-Yellow)
[2023-11-08 20:33] LABS: Bacteria Few /hpf; Squamous Epithelial Cells Rare /hpf (Few); White Blood Cells, Urine 0-2 /hpf (0-5)
== END | disposition home or self-care (01) ==
LOC: LAB SHORT 15:17 → LAB 15:17
PROVIDERS: Internal Medicine Hematology & Oncology
DX: R30.0 Dysuria (principal)
CPT/HCPCS: 81001

== ENCOUNTER 2023-11-16 02:30 | Day surgery (SDC) | payer MEDICARE, OTHER | END 2023-11-16 23:11 | disposition home or self-care (01) | LOC: WOUND 02:30 | DX: S31.104D Unspecified open wound of abdominal wall, left lower quadrant without penetration into peritoneal cavity, subsequent encounter (principal); K63.2 Fistula of intestine; L02.211 Cutaneous abscess of abdominal wall; E11.622 Type 2 diabetes mellitus with other skin ulcer; X58.XXXD Exposure to other specified factors, subsequent encounter | CPT/HCPCS: A6213; G0463 ==

== ENCOUNTER 2023-12-11 13:53 | Day surgery (SDC) | payer MEDICARE, OTHER | END 2023-12-11 23:13 | disposition home or self-care (01) | LOC: WOUND 13:53 | DX: S31.104D Unspecified open wound of abdominal wall, left lower quadrant without penetration into peritoneal cavity, subsequent encounter (principal); K63.2 Fistula of intestine; L02.211 Cutaneous abscess of abdominal wall; E11.622 Type 2 diabetes mellitus with other skin ulcer; X58.XXXD Exposure to other specified factors, subsequent encounter | CPT/HCPCS: A6213; G0463 ==

== ENCOUNTER → 2024-01-10 | Outpatient (CLI) | payer MEDICARE, OTHER ==
[~2024-01-10] MED LIST changes: +NAPR500ERA PO
== END ==
LOC: PLD 07:39 → LAB SHORT 07:39 → LAB 07:39
DX: L60.2 Onychogryphosis (principal); B35.1 Tinea unguium
CPT/HCPCS: 88305; 88312

== ENCOUNTER 2024-02-08 02:12 | Emergency (ER) | payer MEDICARE, OTHER ==
[~2024-02-08] VITALS: Ht 144.8 cm; Wt 83.9 kg
[2024-02-08] MEDS ORDERED: Lidocaine 4% 1 Patch TOP ONE (03:50)
[2024-02-08] MEDS ORDERED: LIDO700A20 TOP (03:50)
[2024-02-08 05:15] VITALS: BP 139/66
== END 2024-02-08 05:27 | disposition home or self-care (01) ==
LOC: ER 02:12
DX: T80.89XA Other complications following infusion, transfusion and therapeutic injection, initial encounter (principal); Z79.899 Other long term (current) drug therapy; E11.42 Type 2 diabetes mellitus with diabetic polyneuropathy; E78.00 Pure hypercholesterolemia, unspecified; K21.9 Gastro-esophageal reflux disease without esophagitis; Z87.891 Personal history of nicotine dependence
CPT/HCPCS: 93005; 93010; 99283-25; A9270

== ENCOUNTER 2024-02-09 22:27 | Emergency (ER) | payer MEDICARE, OTHER ==
[~2024-02-09] VITALS: Ht 144.8 cm; Wt 69.8 kg
[~2024-02-09 22:27] MED LIST changes: +LIDO700A20 TOP
[2024-02-09 23:00] LABS: BASOPHILS ABSOLUTE AUTO 0.04 K/mm3 (0.00-0.23); BASOPHILS PERCENT AUTO 1 % (0-2); EOSINOPHILS ABSOLUTE AUTO 0.04 K/mm3 (0.00-0.68); EOSINOPHILS PERCENT AUTO 1 % (0-6); Hematocrit 29.7 % (33.0-51.0); Hemoglobin 10.4 g/dL (11.5-16.0); IMMATURE GRAN ABSOLUTE AUTO 0.11 K/mm3 (0.00-0.10); IMMATURE GRAN PERCENT AUTO 1 % (0-1); LYMPHOCYTES ABSOLUTE AUTO 1.15 K/mm3 (0.84-5.20); LYMPHOCYTES PERCENT AUTO 15 % (21-46); MONOCYTES ABSOLUTE AUTO 0.58 K/mm3 (0.16-1.47); MONOCYTES PERCENT AUTO 7 % (4-13); Mean Corpuscular HGB 33.7 pg (26.0-34.0); Mean Corpuscular Volume 96 fL (80-100); Mean Platelet Volume 11.4 fL (9.1-12.4); NEUTROPHILS ABSOLUTE AUTO 5.98 K/mm3 (1.96-9.15); NEUTROPHILS PERCENT AUTO 76 % (41-73); Platelet Count 210 K/mm3 (150-400); RDW Coefficient Variation 13.7 % (11.7-14.2); RDW Standard Deviation 47.8 fL (35.1-46.3); Red Blood Cell Count 3.09 M/mm3 (3.80-5.20)
[2024-02-09 23:27] LABS: Albumin, Blood 3.1 g/dL (3.4-5.0); Albumin/Globulin Ratio 0.6 (0.8-1.8); Bilirubin, Total 0.4 mg/dL (0.1-1.0); Bun/Creatinine Ratio 41.2 (12.0-20.0); Calcium, Blood 8.4 mg/dL (8.5-10.1); Creatinine, Blood 1.99 mg/dL (0.40-1.00); Globulin, Blood 5.1 g/dL (2.2-4.0); Potassium, Blood 4.3 mmol/L (3.5-5.5); Total Protein, Blood 8.2 g/dL (6.4-8.2)
[2024-02-10] MEDS ORDERED: NS 1,000 ML IV SCH (00:55)
[2024-02-10] MEDS ORDERED: Piperacillin/Tazobactam Sod 3.375 GM in NS 100 ML IV ONE (01:00)
[2024-02-10 03:30] VITALS: BP 132/76
== END 2024-02-10 05:20 | disposition home or self-care (01) ==
LOC: ER 22:27
PROVIDERS: Student in an Organized Health Care Education/Training Program
DX: T81.49XA Infection following a procedure, other surgical site, initial encounter (principal); Y83.8 Other surgical procedures as the cause of abnormal reaction of the patient, or of later complication, without mention of misadventure at the time of the procedure; E11.40 Type 2 diabetes mellitus with diabetic neuropathy, unspecified; E78.00 Pure hypercholesterolemia, unspecified; K21.9 Gastro-esophageal reflux disease without esophagitis; Z87.891 Personal history of nicotine dependence; Z79.899 Other long term (current) drug therapy
CPT/HCPCS: 74177; 80053; 85025; 93005; 93010; 96365-59; 99284-25; J2543; J7030; Q9967

== ENCOUNTER 2024-02-11 11:45 | Emergency (ER) | payer MEDICARE, OTHER ==
[~2024-02-11] VITALS: Ht 142.2 cm; Wt 69.8 kg
[2024-02-11 15:00] VITALS: BP 176/85
== END 2024-02-11 15:15 | disposition home or self-care (01) ==
LOC: ER 11:45
DX: K63.2 Fistula of intestine (principal); E11.42 Type 2 diabetes mellitus with diabetic polyneuropathy; K21.9 Gastro-esophageal reflux disease without esophagitis; E78.00 Pure hypercholesterolemia, unspecified; Z87.891 Personal history of nicotine dependence; Z79.899 Other long term (current) drug therapy
CPT/HCPCS: 99282

== ENCOUNTER 2024-02-12 02:04 | Day surgery (SDC) | payer MEDICARE, OTHER | END 2024-02-12 23:03 | disposition home or self-care (01) | LOC: WOUND 02:04 | DX: T81.30XA Disruption of wound, unspecified, initial encounter (principal); S31.104A Unspecified open wound of abdominal wall, left lower quadrant without penetration into peritoneal cavity, initial encounter; X58.XXXA Exposure to other specified factors, initial encounter; L02.211 Cutaneous abscess of abdominal wall; K63.2 Fistula of intestine; E11.622 Type 2 diabetes mellitus with other skin ulcer | CPT/HCPCS: A6196; A6213; G0463 ==

== ENCOUNTER → 2024-02-20 | Outpatient (CLI) | payer MEDICARE, OTHER ==
[2024-02-21 17:35] LABS: Creatinine, Urine Random 17.3 mg/dL (27.00-270.00); Protein, Urine Random 69.1 mg/dL (0.0-11.9)
== END ==
LOC: LAB SHORT 13:46 → LAB 13:46
PROVIDERS: Hospitalist
DX: N18.4 Chronic kidney disease, stage 4 (severe) (principal)
CPT/HCPCS: 82570; 84156

== ENCOUNTER 2024-02-26 02:28 | Day surgery (SDC) | payer MEDICARE, OTHER | END 2024-02-26 23:00 | disposition home or self-care (01) | LOC: WOUND 02:28 | DX: T81.31XD Disruption of external operation (surgical) wound, not elsewhere classified, subsequent encounter (principal); E11.9 Type 2 diabetes mellitus without complications; E11.622 Type 2 diabetes mellitus with other skin ulcer; L02.211 Cutaneous abscess of abdominal wall; K63.2 Fistula of intestine; S31.104D Unspecified open wound of abdominal wall, left lower quadrant without penetration into peritoneal cavity, subsequent encounter; Y83.8 Other surgical procedures as the cause of abnormal reaction of the patient, or of later complication, without mention of misadventure at the time of the procedure; X58.XXXD Exposure to other specified factors, subsequent encounter | CPT/HCPCS: A6213; G0463 ==

== ENCOUNTER → 2024-02-28 | Outpatient (CLI) | payer MEDICARE, OTHER ==
[2024-02-28 16:47] LABS: BASOPHILS ABSOLUTE AUTO 0.02 K/mm3 (0.00-0.23); BASOPHILS PERCENT AUTO 0 % (0-2); EOSINOPHILS ABSOLUTE AUTO 0.03 K/mm3 (0.00-0.68); EOSINOPHILS PERCENT AUTO 0 % (0-6); Hemoglobin 8.6 g/dL (11.5-16.0); IMMATURE GRAN ABSOLUTE AUTO 0.12 K/mm3 (0.00-0.10); IMMATURE GRAN PERCENT AUTO 2 % (0-1); LYMPHOCYTES ABSOLUTE AUTO 1.11 K/mm3 (0.84-5.20); LYMPHOCYTES PERCENT AUTO 16 % (21-46); MONOCYTES PERCENT AUTO 7 % (4-13); Mean Corpuscular HGB 34.7 pg (26.0-34.0); Mean Corpuscular HGB Conc 34.4 g/dL (31.5-36.5); Mean Corpuscular Volume 101 fL (80-100); NEUTROPHILS ABSOLUTE AUTO 5.18 K/mm3 (1.96-9.15); NEUTROPHILS PERCENT AUTO 75 % (41-73); Platelet Count 206 K/mm3 (150-400); RDW Coefficient Variation 13.6 % (11.7-14.2); RDW Standard Deviation 49.8 fL (35.1-46.3); Red Blood Cell Count 2.48 M/mm3 (3.80-5.20); White Blood Cell Count 6.96 K/mm3 (4.00-11.30)
== END ==
LOC: LAB 15:18 → LAB SHORT 15:18
PROVIDERS: Internal Medicine Hematology & Oncology
DX: E61.1 Iron deficiency (principal)
CPT/HCPCS: 85025

== ENCOUNTER 2024-03-04 04:15 | Day surgery (SDC) | payer MEDICARE, OTHER | END 2024-03-04 23:07 | disposition home or self-care (01) | LOC: WOUND 04:15 | DX: T81.31XD Disruption of external operation (surgical) wound, not elsewhere classified, subsequent encounter (principal); E11.40 Type 2 diabetes mellitus with diabetic neuropathy, unspecified; E11.51 Type 2 diabetes mellitus with diabetic peripheral angiopathy without gangrene; I10 Essential (primary) hypertension | CPT/HCPCS: 82947; A6213; G0463 ==

== ENCOUNTER 2024-03-11 01:27 | Day surgery (SDC) | payer MEDICARE, OTHER | END 2024-03-11 23:00 | disposition home or self-care (01) | LOC: WOUND 01:27 | DX: T81.31XD Disruption of external operation (surgical) wound, not elsewhere classified, subsequent encounter (principal); E11.622 Type 2 diabetes mellitus with other skin ulcer; S31.104D Unspecified open wound of abdominal wall, left lower quadrant without penetration into peritoneal cavity, subsequent encounter; L02.211 Cutaneous abscess of abdominal wall; K63.2 Fistula of intestine; Y83.8 Other surgical procedures as the cause of abnormal reaction of the patient, or of later complication, without mention of misadventure at the time of the procedure | CPT/HCPCS: A6196; A6213; G0463 ==

== ENCOUNTER 2024-03-18 02:08 | Day surgery (SDC) | payer MEDICARE, OTHER | END 2024-03-18 23:00 | disposition home or self-care (01) | LOC: WOUND 02:08 | DX: T81.31XD Disruption of external operation (surgical) wound, not elsewhere classified, subsequent encounter (principal); E11.9 Type 2 diabetes mellitus without complications | CPT/HCPCS: A6213; G0463 ==

== ENCOUNTER 2024-03-25 01:59 | Day surgery (SDC) | payer MEDICARE, OTHER | END 2024-03-25 23:00 | disposition home or self-care (01) | LOC: WOUND 01:59 | DX: T81.31XD Disruption of external operation (surgical) wound, not elsewhere classified, subsequent encounter (principal); E11.51 Type 2 diabetes mellitus with diabetic peripheral angiopathy without gangrene | CPT/HCPCS: A6196; A6213; G0463 ==

== ENCOUNTER 2024-04-08 00:49 | Day surgery (SDC) | payer MEDICARE, OTHER | END 2024-04-08 23:14 | disposition home or self-care (01) | LOC: WOUND 00:49 | DX: T81.31XD Disruption of external operation (surgical) wound, not elsewhere classified, subsequent encounter (principal); E11.622 Type 2 diabetes mellitus with other skin ulcer; L02.211 Cutaneous abscess of abdominal wall; K63.2 Fistula of intestine; S31.104D Unspecified open wound of abdominal wall, left lower quadrant without penetration into peritoneal cavity, subsequent encounter; X58.XXXD Exposure to other specified factors, subsequent encounter; Y83.8 Other surgical procedures as the cause of abnormal reaction of the patient, or of later complication, without mention of misadventure at the time of the procedure | CPT/HCPCS: A6196; A6213; G0463 ==

== ENCOUNTER 2024-04-15 04:44 | Day surgery (SDC) | payer MEDICARE, OTHER | END 2024-04-15 23:48 | disposition home or self-care (01) | LOC: WOUND 04:44 | DX: E11.622 Type 2 diabetes mellitus with other skin ulcer (principal); S31.104D Unspecified open wound of abdominal wall, left lower quadrant without penetration into peritoneal cavity, subsequent encounter; L02.211 Cutaneous abscess of abdominal wall; K63.2 Fistula of intestine | CPT/HCPCS: A6213; G0463 ==

== ENCOUNTER 2024-04-22 08:00 | Day surgery (SDC) | payer MEDICARE, OTHER | END 2024-04-23 23:55 | disposition home or self-care (01) | LOC: WOUND | DX: T81.30XA Disruption of wound, unspecified, initial encounter (principal); S31.104A Unspecified open wound of abdominal wall, left lower quadrant without penetration into peritoneal cavity, initial encounter; L02.211 Cutaneous abscess of abdominal wall; E11.622 Type 2 diabetes mellitus with other skin ulcer; K63.2 Fistula of intestine | CPT/HCPCS: A6213; G0463 ==

== ENCOUNTER 2024-04-29 04:17 | Day surgery (SDC) | payer MEDICARE, OTHER | END 2024-04-29 23:00 | disposition home or self-care (01) | LOC: WOUND 04:17 | DX: T81.31XD Disruption of external operation (surgical) wound, not elsewhere classified, subsequent encounter (principal); E11.9 Type 2 diabetes mellitus without complications | CPT/HCPCS: A6196; A6213; G0463 ==

== ENCOUNTER 2024-05-15 04:06 | Day surgery (SDC) | payer MEDICARE, OTHER ==
[2024-05-16] MEDS ORDERED: DAPAGLIFLOZIN5 MG PO (04:29)
[2024-05-16] MEDS ORDERED: FERSU300 PO (04:29)
[2024-05-16] MEDS ORDERED: LOSA50 PO (04:30)
[2024-05-16] MEDS ORDERED: LOPE2C PO (04:30)
[2024-05-16] MEDS ORDERED: TORSE20 (04:30)
== END 2024-05-15 23:00 | disposition home or self-care (01) ==
LOC: WOUND 04:06
DX: T81.31XD Disruption of external operation (surgical) wound, not elsewhere classified, subsequent encounter (principal); K63.2 Fistula of intestine; E11.9 Type 2 diabetes mellitus without complications
CPT/HCPCS: A6213; G0463

== ENCOUNTER 2024-05-16 04:03 | Emergency (ER) | payer MEDICARE, OTHER ==
[~2024-05-16] VITALS: Ht 142.2 cm; Wt 70.3 kg
[2024-05-16] MEDS ORDERED: DAPAGLIFLOZIN5 MG PO (04:29)
[2024-05-16] MEDS ORDERED: FERSU300 PO (04:29)
[2024-05-16] MEDS ORDERED: LOPE2C PO (04:30)
[2024-05-16] MEDS ORDERED: LOSA50 PO (04:30)
[2024-05-16] MEDS ORDERED: TORSE20 (04:30)
[2024-05-16 05:33] LABS: Albumin, Blood 2.7 g/dL (3.4-5.0); Albumin/Globulin Ratio 0.6 (0.8-1.8); Bilirubin, Total 0.4 mg/dL (0.1-1.0); Bun/Creatinine Ratio 26.8 (12.0-20.0); Calcium, Blood 8.8 mg/dL (8.5-10.1); Creatinine, Blood 2.2 mg/dL (0.40-1.00); Globulin, Blood 4.6 g/dL (2.2-4.0); Total Protein, Blood 7.3 g/dL (6.4-8.2)
[2024-05-16 06:04] LABS: CORONAVIRUS COVID-19 AG Negative (NEGATIVE); INFLUENZA A AG Negative (NEGATIVE); INFLUENZA B AG Negative (NEGATIVE)
[2024-05-16 06:24] LABS: BASOPHILS ABSOLUTE AUTO 0.05 K/mm3 (0.00-0.23); BASOPHILS PERCENT AUTO 1 % (0-2); EOSINOPHILS ABSOLUTE AUTO 0.06 K/mm3 (0.00-0.68); EOSINOPHILS PERCENT AUTO 1 % (0-6); Hematocrit 26.1 % (33.0-51.0); Hemoglobin 9.4 g/dL (11.5-16.0); IMMATURE GRAN ABSOLUTE AUTO 0.15 K/mm3 (0.00-0.10); IMMATURE GRAN PERCENT AUTO 2 % (0-1); LYMPHOCYTES ABSOLUTE AUTO 1.36 K/mm3 (0.84-5.20); LYMPHOCYTES PERCENT AUTO 15 % (21-46); MONOCYTES ABSOLUTE AUTO 0.79 K/mm3 (0.16-1.47); MONOCYTES PERCENT AUTO 9 % (4-13); Mean Corpuscular HGB 34.4 pg (26.0-34.0); Mean Corpuscular Volume 96 fL (80-100); Mean Platelet Volume 11.4 fL (9.1-12.4); NEUTROPHILS ABSOLUTE AUTO 6.75 K/mm3 (1.96-9.15); NEUTROPHILS PERCENT AUTO 74 % (41-73); NRBC ABSOLUTE 0.02 K/mm3 (0.00-0.02); NRBC Auto 0.2 /100 WBC (0.0-0.2); Platelet Count 202 K/mm3 (150-400); RDW Coefficient Variation 13.7 % (11.7-14.2); RDW Standard Deviation 48.2 fL (35.1-46.3); Red Blood Cell Count 2.73 M/mm3 (3.80-5.20); White Blood Cell Count 9.16 K/mm3 (4.00-11.30)
[2024-05-16 14:16] VITALS: BP 103/53
== END 2024-05-16 08:11 | disposition home or self-care (01) ==
LOC: ER 04:03
PROVIDERS: Emergency Medicine
DX: R06.02 Shortness of breath (principal); K63.2 Fistula of intestine; Z87.891 Personal history of nicotine dependence; E11.42 Type 2 diabetes mellitus with diabetic polyneuropathy; E11.22 Type 2 diabetes mellitus with diabetic chronic kidney disease; N18.4 Chronic kidney disease, stage 4 (severe); K21.9 Gastro-esophageal reflux disease without esophagitis; Z79.899 Other long term (current) drug therapy
CPT/HCPCS: 71046; 80053; 84484; 85025; 87428-QW; 93005; 93010; 99285-25

== ENCOUNTER 2024-05-20 06:04 | Day surgery (SDC) | payer MEDICARE, OTHER ==
[~2024-05-20 06:04] MED LIST changes: +DAPAGLIFLOZIN5 MG PO; +FERSU300 PO; +LOSA50 PO; +TORSE20
== END 2024-05-20 23:00 | disposition home or self-care (01) ==
LOC: WOUND 06:04
DX: T81.30XD Disruption of wound, unspecified, subsequent encounter (principal); E11.622 Type 2 diabetes mellitus with other skin ulcer; S31.104D Unspecified open wound of abdominal wall, left lower quadrant without penetration into peritoneal cavity, subsequent encounter; L02.211 Cutaneous abscess of abdominal wall; K63.2 Fistula of intestine; Y84.8 Other medical procedures as the cause of abnormal reaction of the patient, or of later complication, without mention of misadventure at the time of the procedure
CPT/HCPCS: A6213; G0463

== ENCOUNTER 2024-05-27 08:00 | Day surgery (SDC) | payer MEDICARE, OTHER | END 2024-05-28 22:50 | disposition home or self-care (01) | LOC: WOUND 08:00 | DX: T81.30XD Disruption of wound, unspecified, subsequent encounter (principal); E11.622 Type 2 diabetes mellitus with other skin ulcer; S31.104D Unspecified open wound of abdominal wall, left lower quadrant without penetration into peritoneal cavity, subsequent encounter; L02.211 Cutaneous abscess of abdominal wall; K63.2 Fistula of intestine; Y83.8 Other surgical procedures as the cause of abnormal reaction of the patient, or of later complication, without mention of misadventure at the time of the procedure; X58.XXXD Exposure to other specified factors, subsequent encounter | CPT/HCPCS: A6213; G0463 ==

== ENCOUNTER 2024-07-01 00:43 | Day surgery (SDC) | payer MEDICARE, OTHER ==
[~2024-07-01 00:43] MED LIST changes: +TORSE20 PO
== END 2024-07-01 22:48 | disposition home or self-care (01) ==
LOC: WOUND 00:43
DX: T81.31XA Disruption of external operation (surgical) wound, not elsewhere classified, initial encounter (principal); K63.2 Fistula of intestine; S31.104A Unspecified open wound of abdominal wall, left lower quadrant without penetration into peritoneal cavity, initial encounter; L02.211 Cutaneous abscess of abdominal wall; E11.622 Type 2 diabetes mellitus with other skin ulcer
CPT/HCPCS: A6213; G0463

== ENCOUNTER 2024-07-30 01:27 | Day surgery (SDC) | payer MEDICARE, OTHER | END 2024-07-30 23:00 | disposition home or self-care (01) | LOC: WOUND 01:27 | DX: T81.30XD Disruption of wound, unspecified, subsequent encounter (principal); E11.622 Type 2 diabetes mellitus with other skin ulcer; S31.104D Unspecified open wound of abdominal wall, left lower quadrant without penetration into peritoneal cavity, subsequent encounter; L02.211 Cutaneous abscess of abdominal wall; K63.2 Fistula of intestine; Y83.8 Other surgical procedures as the cause of abnormal reaction of the patient, or of later complication, without mention of misadventure at the time of the procedure; X58.XXXD Exposure to other specified factors, subsequent encounter | CPT/HCPCS: A6196; A6213; G0463 ==

== ENCOUNTER 2024-08-11 06:47 | Emergency (ER) | payer MEDICARE, OTHER ==
[~2024-08-11] VITALS: Ht 142.2 cm; Wt 70.8 kg
[~2024-08-11 06:47] MED LIST changes: +PREG300 PO; -PREG50 PO
[2024-08-11] MEDS ORDERED: Ketorolac Tromethamine 15mg Vial IV ONE (07:15)
[2024-08-11] MEDS ORDERED: Morphine Sulfate 4 MG/1 ML Injection IV ONE ×2 (07:15→10:20)
[2024-08-11] MEDS ORDERED: Acetaminophen 500 MG Tab PO ONE (07:15)
[2024-08-11 08:27] LABS: BASOPHILS ABSOLUTE AUTO 0.02 K/mm3 (0.00-0.23); BASOPHILS PERCENT AUTO 0 % (0-2); EOSINOPHILS PERCENT AUTO 2 % (0-6); Hematocrit 23.4 % (33.0-51.0); Hemoglobin 8.1 g/dL (11.5-16.0); IMMATURE GRAN ABSOLUTE AUTO 0.09 K/mm3 (0.00-0.10); IMMATURE GRAN PERCENT AUTO 2 % (0-1); LYMPHOCYTES ABSOLUTE AUTO 1.04 K/mm3 (0.84-5.20); LYMPHOCYTES PERCENT AUTO 18 % (21-46); MONOCYTES ABSOLUTE AUTO 0.51 K/mm3 (0.16-1.47); MONOCYTES PERCENT AUTO 9 % (4-13); Mean Corpuscular HGB 33.8 pg (26.0-34.0); Mean Corpuscular HGB Conc 34.6 g/dL (31.5-36.5); Mean Corpuscular Volume 98 fL (80-100); Mean Platelet Volume 11.6 fL (9.1-12.4); NEUTROPHILS ABSOLUTE AUTO 3.89 K/mm3 (1.96-9.15); NEUTROPHILS PERCENT AUTO 69 % (41-73); Platelet Count 182 K/mm3 (150-400); RDW Coefficient Variation 14.8 % (11.7-14.2); RDW Standard Deviation 52.3 fL (35.1-46.3); White Blood Cell Count 5.65 K/mm3 (4.00-11.30)
[2024-08-11 08:41] LABS: Albumin, Blood 2.7 g/dL (3.4-5.0); Albumin/Globulin Ratio 0.6 (0.8-1.8); Bilirubin, Total 0.4 mg/dL (0.1-1.0); Bun/Creatinine Ratio 27.9 (12.0-20.0); Calcium, Blood 7.9 mg/dL (8.5-10.1); Creatinine, Blood 2.01 mg/dL (0.40-1.00); Globulin, Blood 4.3 g/dL (2.2-4.0); Potassium, Blood 4.1 mmol/L (3.5-5.5)
[2024-08-11 09:04] LABS: Source, Urine Straight Cath
[2024-08-11 09:36] LABS: Appearance, Urine Clear (Clear); Bilirubin, Urine Neg (Neg); Blood, Urine 1+ (Neg); Color, Urine Yellow (P-Yellow); Glucose Qualitative, Urine Neg (Neg); Ketones, Urine Neg (Neg); Leukocyte Esterase, Urine Neg (Neg); Nitrite, Urine Neg (Neg); Protein, Urine 2+ (Neg); Urobilinogen, Urine NORM (Normal)
[2024-08-11 09:47] LABS: Amorphous Light (0-Heavy); Bacteria Not Seen /hpf; Red Blood Cells, Urine 0-2 /hpf (0-2); Squamous Epithelial Cells Rare /hpf (Few); White Blood Cells, Urine 0-2 /hpf (0-5)
[2024-08-11] MEDS ORDERED: ACET500 PO (10:47)
[2024-08-11] MEDS ORDERED: OMEP20ER PO (10:49)
[2024-08-11] MEDS ORDERED: Pantoprazole Sodium 40 MG Injection IV ONE (10:50)
[2024-08-11 10:59] VITALS: BP 102/49
== END 2024-08-11 11:29 | disposition home or self-care (01) ==
LOC: ER 06:47
PROVIDERS: Emergency Medicine
DX: S43.401A Unspecified sprain of right shoulder joint, initial encounter (principal); W18.30XA Fall on same level, unspecified, initial encounter; D64.9 Anemia, unspecified; Z87.891 Personal history of nicotine dependence; I50.9 Heart failure, unspecified; K21.9 Gastro-esophageal reflux disease without esophagitis; E11.22 Type 2 diabetes mellitus with diabetic chronic kidney disease; N18.4 Chronic kidney disease, stage 4 (severe); Z79.891 Long term (current) use of opiate analgesic; Z79.83 Long term (current) use of bisphosphonates; Z79.85 Long-term (current) use of injectable non-insulin antidiabetic drugs; Z79.899 Other long term (current) drug therapy; Z79.1 Long term (current) use of non-steroidal anti-inflammatories (NSAID)
CPT/HCPCS: 73030; 80053; 81001; 82272; 85025; 96374; 96375; 96376; 99284-25; A9270; J2270; J2470; P9612

== ENCOUNTER 2024-08-13 08:04 | Inpatient (IN) | payer MEDICARE, OTHER ==
[~2024-08-13] VITALS: Ht 142.2 cm; Wt 74.0 kg
[~2024-08-13 08:04] MED LIST changes: +ACET500 PO; +OMEP20ER PO
[2024-08-13] MEDS ORDERED: TRADJENTA5 MG PO (08:25)
[2024-08-13] MEDS ORDERED: BASAGLAR K100 UNIT/3 SC (08:25)
[2024-08-13] MEDS ORDERED: INSULIN LI100 UNIT/6 (08:26)
[2024-08-13 09:05] LABS: BASOPHILS ABSOLUTE AUTO 0.02 K/mm3 (0.00-0.23); BASOPHILS PERCENT AUTO 0 % (0-2); EOSINOPHILS ABSOLUTE AUTO 0.03 K/mm3 (0.00-0.68); EOSINOPHILS PERCENT AUTO 0 % (0-6); Hemoglobin 8.4 g/dL (11.5-16.0); IMMATURE GRAN ABSOLUTE AUTO 0.08 K/mm3 (0.00-0.10); IMMATURE GRAN PERCENT AUTO 1 % (0-1); LYMPHOCYTES ABSOLUTE AUTO 0.43 K/mm3 (0.84-5.20); LYMPHOCYTES PERCENT AUTO 5 % (21-46); MONOCYTES ABSOLUTE AUTO 0.39 K/mm3 (0.16-1.47); MONOCYTES PERCENT AUTO 5 % (4-13); Mean Corpuscular HGB 33.7 pg (26.0-34.0); Mean Corpuscular Volume 96 fL (80-100); Mean Platelet Volume 11.8 fL (9.1-12.4); NEUTROPHILS ABSOLUTE AUTO 7.72 K/mm3 (1.96-9.15); NEUTROPHILS PERCENT AUTO 89 % (41-73); Platelet Count 200 K/mm3 (150-400); RDW Coefficient Variation 14.8 % (11.7-14.2); RDW Standard Deviation 51.5 fL (35.1-46.3); Red Blood Cell Count 2.49 M/mm3 (3.80-5.20); White Blood Cell Count 8.67 K/mm3 (4.00-11.30)
[2024-08-13 09:27] LABS: Free Thyroxine 1.12 ng/dL (0.70-1.60); Magnesium, Blood 1.8 mg/dL (1.6-2.4)
[2024-08-13 09:47] LABS: Bun/Creatinine Ratio 25.8 (12.0-20.0); Calcium, Blood 8.2 mg/dL (8.5-10.1); Creatinine, Blood 2.36 mg/dL (0.40-1.00); Potassium, Blood 4.6 mmol/L (3.5-5.5); Thyroid Stimulating Hormone 2.96 uIU/mL (0.360-4.800)
[2024-08-13 12:29] LABS: Source, Urine Clean Catch
[2024-08-13 12:38] LABS: Appearance, Urine Hazy (Clear); Bilirubin, Urine Neg (Neg); Blood, Urine 5+ (Neg); Color, Urine Yellow (P-Yellow); Glucose Qualitative, Urine Neg (Neg); Ketones, Urine Neg (Neg); Leukocyte Esterase, Urine 3+ (Neg); Nitrite, Urine Neg (Neg); Protein, Urine 3+ (Neg); Specific Gravity, Urine 1.015 (1.003-1.022); Urobilinogen, Urine NORM (Normal)
[2024-08-13 13:13] LABS: Bacteria Many /hpf; Red Blood Cells, Urine 25-50 /hpf (0-2); Squamous Epithelial Cells Many /hpf (Few); White Blood Cells, Urine 50-100 /hpf (0-5)
[2024-08-13] MEDS ORDERED: CefTRIAXone Sodium 1,000 MG in NS 100 ML IV ONE (13:20)
[2024-08-13 15:45] VITALS: BP 119/48
[2024-08-13] MEDS ORDERED: INSULANI SC (16:39)
[2024-08-13] MEDS ORDERED: PATADAY BOTHEYES (16:45)
[2024-08-13] MEDS ORDERED: NS 1,000 ML IV SCH (16:50)
[2024-08-13] MEDS ORDERED: CALCIUM GLUC IN NACL, ISO-OSM 100 ML IV ONE (17:30)
[2024-08-13] MEDS ORDERED: NS 250 ML IV PRN (20:25)
[2024-08-13] MEDS ORDERED: Lactobacil 2-S.Thermo-Bifido 1 1 Cap PO SCH (21:00)
--- NOTE | 2024-08-14 03:06 | NUR ---
SHIFT SUMMARY PT IS A/O X3-4, ABLE TO MAKE HER NEEDS KNOWN AND COOPERATIVE WITH CARE. PT USING BEDPAN, VOIDING WELL. CONTINENT, ATTENDS IN PLACE. NS INFUSING @100MLS/HR ORDERED. DIET ORDER IS ADVANCE TOLERATED. PT REQUESTED WATER AND SWALLOWS W/O COMPLICATIONS. CHAIR ALARM IN THE BED USING FOR SAFETY. BED AT THE LOWEST POSITION, CALL LIGHT W/I REACH. PT CALLS APPROPRIATELY, ABLE TO MAKE HER NEEDS KNOWN.
[2024-08-14 04:35] VITALS: BP 130/72
[2024-08-14 06:01] LABS: BASOPHILS ABSOLUTE AUTO 0.02 K/mm3 (0.00-0.23); BASOPHILS PERCENT AUTO 0 % (0-2); EOSINOPHILS ABSOLUTE AUTO 0.06 K/mm3 (0.00-0.68); EOSINOPHILS PERCENT AUTO 1 % (0-6); Hematocrit 25.9 % (33.0-51.0); Hemoglobin 8.8 g/dL (11.5-16.0); IMMATURE GRAN ABSOLUTE AUTO 0.05 K/mm3 (0.00-0.10); IMMATURE GRAN PERCENT AUTO 1 % (0-1); LYMPHOCYTES PERCENT AUTO 8 % (21-46); MONOCYTES ABSOLUTE AUTO 0.44 K/mm3 (0.16-1.47); MONOCYTES PERCENT AUTO 6 % (4-13); Mean Corpuscular HGB 33.5 pg (26.0-34.0); Mean Corpuscular Volume 99 fL (80-100); Mean Platelet Volume 11.3 fL (9.1-12.4); NEUTROPHILS ABSOLUTE AUTO 6.46 K/mm3 (1.96-9.15); NEUTROPHILS PERCENT AUTO 85 % (41-73); Platelet Count 194 K/mm3 (150-400); RDW Coefficient Variation 14.7 % (11.7-14.2); RDW Standard Deviation 53.1 fL (35.1-46.3); Red Blood Cell Count 2.63 M/mm3 (3.80-5.20); White Blood Cell Count 7.63 K/mm3 (4.00-11.30)
[2024-08-14 06:43] LABS: Albumin, Blood 2.6 g/dL (3.4-5.0); Albumin/Globulin Ratio 0.6 (0.8-1.8); Bilirubin, Total 0.4 mg/dL (0.1-1.0); Bun/Creatinine Ratio 30.3 (12.0-20.0); Calcium, Blood 8.8 mg/dL (8.5-10.1); Creatinine, Blood 1.98 mg/dL (0.40-1.00); Globulin, Blood 4.3 g/dL (2.2-4.0); Total Protein, Blood 6.9 g/dL (6.4-8.2)
[2024-08-14 07:22] VITALS: BP 143/58
[2024-08-14] MEDS ORDERED: CefTRIAXone Sodium 1,000 MG in NS 100 ML IV SCH (09:00)
[2024-08-14] MEDS ORDERED: Enoxaparin 30 MG/0.3 ML SYR SC SCH (09:00)
[2024-08-14] MEDS ORDERED: TORSE20 PO (14:32)
[2024-08-14] MEDS ORDERED: VITAMIN C125 MG PO (14:33)
[2024-08-14] MEDS ORDERED: LIDOTOR 2.5%-21 EACH TOP (14:35)
[2024-08-14 15:49] VITALS: BP 178/67
[2024-08-14 16:26] VITALS: BP 132/78
--- NOTE | 2024-08-14 18:39 | NUR ---
SHIFT SUMMARY NO ACUTE CHANGES, PT A/O TO SELF, PLACE, AND SITUATION. PT DENIES PAIN. ABLE TO MAKE NEEDS KNOWN AND USING CALL LIGHT APPROPRIATELY. VITALS STABLE. REMAINS ON CONTINUOUS NORMAL SALINE INFUSION @ 100 ML/HR. NEW IV INSERTED DUE TO PREVIOUS IV INFILTRATING. PT DENIES PAIN AT OLD IV SITE. PT CONTINUES ON IV ANTIBIOTICS FOR UTI. PT DIET ADVANCED TO REGULAR TEXTURE/CONSISTENT CARB AND PT TOLERATING WELL. TOLERATES THIN LIQUIDS WELL AND MEDS WHOLE. PT STARTED ON AC BLOOD SUGAR, NO COVERAGE AT THIS TIME DUE TO LOW CBG THIS AM. PT CURRENTLY SITTING UP IN CHAIR EATING DINNER WITH CALL LIGHT WITHIN REACH.
--- NOTE | 2024-08-15 02:47 | NUR ---
SHIFT SUMMARY NO ACUTE EVENTS DURING THIS SHIFT. @HS PT INCONTINENT OF STOOL, ATTENDS IN PLACE. UP IN A CHAIR DURING AND AFTER DINNER. 1-PERSON ASSIST WITH FWW. PT DENIES PAIN. BED ALARM FOR SAFETY. VSS. BED AT THE LOWEST POSITION, CALL LIGHT W/I REACH. PT IS A/O X3-4, SOME CONFUSION NOTED. COOPERATIVE WITH CARE AND ABLE TO MAKE HER NEEDS KNOWN.
[2024-08-15 04:24] VITALS: BP 140/55
[2024-08-15 06:21] LABS: BASOPHILS ABSOLUTE AUTO 0.02 K/mm3 (0.00-0.23); BASOPHILS PERCENT AUTO 0 % (0-2); EOSINOPHILS ABSOLUTE AUTO 0.08 K/mm3 (0.00-0.68); EOSINOPHILS PERCENT AUTO 1 % (0-6); Hematocrit 25.3 % (33.0-51.0); Hemoglobin 8.2 g/dL (11.5-16.0); IMMATURE GRAN PERCENT AUTO 1 % (0-1); LYMPHOCYTES PERCENT AUTO 10 % (21-46); MONOCYTES PERCENT AUTO 6 % (4-13); Mean Corpuscular HGB 32.9 pg (26.0-34.0); Mean Corpuscular HGB Conc 32.4 g/dL (31.5-36.5); Mean Corpuscular Volume 102 fL (80-100); Mean Platelet Volume 11.6 fL (9.1-12.4); NEUTROPHILS ABSOLUTE AUTO 5.77 K/mm3 (1.96-9.15); NEUTROPHILS PERCENT AUTO 82 % (41-73); Platelet Count 180 K/mm3 (150-400); RDW Coefficient Variation 14.6 % (11.7-14.2); RDW Standard Deviation 53.9 fL (35.1-46.3); Red Blood Cell Count 2.49 M/mm3 (3.80-5.20); White Blood Cell Count 7.07 K/mm3 (4.00-11.30)
[2024-08-15 06:46] LABS: Bun/Creatinine Ratio 31.4 (12.0-20.0); Creatinine, Blood 1.69 mg/dL (0.40-1.00); Potassium, Blood 4.2 mmol/L (3.5-5.5)
[2024-08-15 08:41] VITALS: BP 145/53
[2024-08-15] MEDS ORDERED: Sodium Bicarbonate 650 MG Tab PO SCH (09:00)
--- NOTE | 2024-08-15 11:36 | NUR ---
NOTE PT BLOOD SUGAR THIS AM WAS 64. PT REPORTED JUST "WAKING UP" WHEN CHIEF ADMINISTRATIVE OFFICER REPORTED CHECKING CBG. BREAKFAST TRAY WAS GIVEN TO PT, PT ENCOURAGED TO DRINK JUICE. RECHECKED CBG POST BREAKFAST. CBG WAS 127.
[2024-08-15 16:36] VITALS: BP 135/80
--- NOTE | 2024-08-15 19:09 | NUR ---
SHIFT SUMMARY PT A&OX2. PT ADMITTED DUE TO UTI. PT INC OF URINE. PT WORKED WITH PHYSICAL THERAPY TODAY. VSS. PT REPORTS VISUAL HALLUCINATIONS. NS RUNNING AT 100ML/HR. PT MAKES NEEDS KNOWN. CALLED DR. MCADAMS, DR. MCADAMS ORDERED PALLIATIVE CARE CONSULT. PLAN IS POSSIBLE SCOPE ON SUNDAY, START BOWEL PREP TOMORROW. PT IN BED, BED IN LOWEST POSITION. GI WAS CONSULTED TODAY. PT Q2 TURN.
[2024-08-15 20:46] VITALS: BP 161/87
[2024-08-16 05:21] VITALS: BP 155/79
--- NOTE | 2024-08-16 05:58 | NUR ---
SHIFT SUMMARY NOC PT A/O X 2. EMOTIONAL AT TIMES, BUT PLEASANT AND COOPERATIVE WITH CARE. BP SLIGHTLY ELEVATED. PT INCONTINENT OF URINE X 3. PT HAS NS INFUSING @ 100 ML/HR. PT CURRENTLY RESTING WITH BED IN LOWEST POSITION, AND CALL LIGHT WITHIN REACH.
[2024-08-16] MEDS ORDERED: Lactated Ringer's 1,000 ML IV SCH ×2 (07:15→13:00)
[2024-08-16] MEDS ORDERED: NS 500 ML IV SCH (07:40)
[2024-08-16] MEDS ORDERED: Lidocaine HCl 1% 5 ML SYR INJ ONE (07:40)
[2024-08-16] MEDS ORDERED: Albuterol 2.5 MG/3 ML VIAL INH PRN (07:40)
[2024-08-16] MEDS ORDERED: propofoL 20 ML IV ONE (07:49)
[2024-08-16 07:58] VITALS: BP 189/85
[2024-08-16] MEDS ORDERED: Ondansetron HCl 2 MG / ML 2ML Vial IV PRN (08:00)
--- NOTE | 2024-08-16 08:29 | NUR ---
08/16/24 0829 Carlos Saul History, Chart, Medications and Allergies reviewed before start of procedure. MONITOR INTACT WITH CONTINUOUS PULSE OXIMETRY, CONTINUOUS END TITAL CO2, 3-LEAD EKG AND INTERMITTENT BLOOD PRESSURE. 3-LEAD EKG REVIEWED WITH PHYSICIAN PRIOR TO START OF PROCEDURE. O2 VIA POM INTACT THROUGHOUT SEDATION/PROCEDURE. TOP AND BOTTOM DENTURES REMOVED IN PRE OP AND PLACED IN DENTURE CUP WITH BURRING MACHINE OPERATOR AND PT'S NAME. DAUGHTER RIGO CALLED AND DR TALAVERA AND TODD SPOKE WITH HER TO GAIN CONSENT FOR PROCEDURE. THIS RN CONFIRMED WITH DAUGHTER RIGO. PT IS AWAKE AND AND ABLE TO TELL ME HER NAME BUT UNABLE TO TELL ME BIRTHDAY OR WHAT SHE IS HAVING DONE TODAY. PT TRANSFERRED TO [facility] SHE[facility]. SHE REPORTS NO PAIN OR NAUSEA TODAY. PT GIVEN WARM BLANKETS.
--- NOTE | 2024-08-16 08:34 | NUR ---
22G IN R ARM FLUSHED WELL. NO PAIN WITH FLUSH, DRESSING IN TACT. DRIPPING WELL. ANESTHESIA OKAY WITH NO PRE OP CBG GIVEN PT'S RECENT LEVELS.
[2024-08-16 09:33] LABS: Hematocrit 24.3 % (33.0-51.0); Hemoglobin 8.1 g/dL (11.5-16.0)
[2024-08-16] MEDS ORDERED: Polyethylene Glycol 3350 17 gm PO ONE (10:00)
[2024-08-16 10:12] VITALS: BP 156/70
[2024-08-16 10:15] LABS: Bun/Creatinine Ratio 27.8 (12.0-20.0); Calcium, Blood 7.9 mg/dL (8.5-10.1); Creatinine, Blood 1.44 mg/dL (0.40-1.00); Potassium, Blood 3.9 mmol/L (3.5-5.5)
[2024-08-16 16:37] VITALS: BP 158/83
[2024-08-16] MEDS ORDERED: Peg/Electrolytes 4,000 ML BTL PO ONE (18:00)
--- NOTE | 2024-08-16 19:50 | NUR ---
SHIFT SUMMARY PT A&OX2. PT ORIENTED TO SELF, DOESN'T RECAL YEAR, KNOWS IN HOSPITAL, DOESN'T RECALL CURRENT SISTUATION. PT ADMITTED DUE TO UTI. PT INC OF URINE. VSS. LR RUNNING AT 75ML/HR. PT WENT FOR A UPPER SCOPE THIS AM. PT BEEN ON CLEAR LIQUIDS TODAY, AT 1700 STARTED ON WATER AND ICE CHIP DIET. BOWEL PREP STARTED. NIGHT RN KNOWS WILL BE NPO AT 0600 FOR LOWER SCOPE PROCEDURE TOMORROW. PT MAKES NEEDS KNOWN. TURNED Q2. PT IN BED, BED IN LOWEST POSITION. CALL LIGHT IN REACH.
[2024-08-16] MEDS ORDERED: Cephalexin Monohydrate 500 MG Cap PO SCH (21:00)
[2024-08-16 21:05] VITALS: BP 172/57
[2024-08-17] VITALS (7 sets, daily range): BP systolic 139–167; BP diastolic 48–81
--- NOTE | 2024-08-17 03:20 | NUR ---
SHIFT SUMMARY PATIENT HAS BEEN SLEEPING INTERMITTANTLY TONIGHT. BOWEL PREP FOR AM COLONOSCOPY HAS ALSO BEEN ONGOING. LAST BM PATIENT HAD WAS CLEAR. PATIENT REFUSED TO DRINK MORE OF THE BOWEL PREP LAST TIME IT WAS OFFERED TO HER. SHE IS ORIENTED X2. PATIENT HAS HER CALL LIGHT WITHIN REACH AND HER BED ALARM IS SET. SAFETY PRECAUTIONS ARE BEING MAINTAINED.
[2024-08-17 04:44] LABS: Hematocrit 25.7 % (33.0-51.0); Hemoglobin 8.5 g/dL (11.5-16.0)
[2024-08-17 05:10] LABS: Calcium, Blood 8.4 mg/dL (8.5-10.1); Creatinine, Blood 1.31 mg/dL (0.40-1.00); Potassium, Blood 3.8 mmol/L (3.5-5.5)
[2024-08-17] MEDS ORDERED: Pantoprazole Sodium 40 MG Tab PO SCH (06:00)
[2024-08-17] MEDS ORDERED: Ondansetron HCl 2 MG / ML 2ML Vial IV PRN (07:25)
[2024-08-17] MEDS ORDERED: Lactated Ringer's 1,000 ML IV SCH (07:30)
[2024-08-17] MEDS ORDERED: Albuterol 2.5 MG/3 ML VIAL INH PRN ×2 (07:30)
[2024-08-17] MEDS ORDERED: Lidocaine HCl 1% 5 ML SYR INJ ONE (07:30)
[2024-08-17] MEDS ORDERED: NS 500 ML IV SCH (08:00)
[2024-08-17] MEDS ORDERED: propofoL 40 ML IV ONE (08:10)
--- NOTE | 2024-08-17 08:37 | NUR ---
08/17/24 0837 Carlos Saul PT ARRIVED TO UNIT VIA GURN, TRANSFERRED VIA SLIDER SHEET. ALL BELONGINGS LEFT IN PT'S ROOM. TOP AND BOTTOM DENTURES REMAIN IN PLACE DURING PROCEDURE. PT REPORTS HAVING "PAIN ALL OVER". REPOSITIONED WITH PILLOWS AND WARM BLANKETS TO HELP WITH PAIN. PT REPORTS TOLERABLE ONCE REPOSITIONED. 22G IV IN RFA IS NOT ABLE TO BE FLUSHED. NEW 20G IV STARTED IN RFA. History, Chart, Medications and Allergies reviewed before start of procedure. MONITOR INTACT WITH CONTINUOUS PULSE OXIMETRY, CONTINUOUS END TITAL CO2, 3-LEAD EKG AND INTERMITTENT BLOOD PRESSURE. 3-LEAD EKG REVIEWED WITH PHYSICIAN PRIOR TO START OF PROCEDURE. O2 VIA POM INTACT THROUGHOUT SEDATION/PROCEDURE. DAUGHTER RIGO CALLED TO GAIN CONSENT FOR PROCEDURE AND ANESTHESIA.
[2024-08-17] MEDS ORDERED: Morphine Sulfate 4 MG/1 ML Injection IV ONE (10:25)
[2024-08-17] MEDS ORDERED: Acetaminophen 325 MG TABLET PO PRN (10:40)
--- NOTE | 2024-08-17 11:01 | NUR ---
NOTE PT BACK FROM LOWER SCOPE. PT MOANING/CRY OUT. CHECKED ON PT, PT REPORTED "I FEEL LIKE I CAN'T BREATH. I HAVE CHEST PAIN." TOOK VITALS, VITALS WERE 100% ON ROOM AIR. 154/73, AND 83 BPM. REPORTED TO RN. COMPLETED EKG. CALLED DR. SANCHEZ, DUE TO CONTINUAL REPORT OF CHEST PAIN. PT ALSO REPORTED GENERALIZED PAIN. DR. SANCHEZ REPORTED "GIVE MORNING MEDS WITHOUT PROBIOTIC AND 1MG OF MORPHINE, RECHECK EKG AT 1200. PT IN BED, BED IN LOWEST POSITION, CALL LIGHT IN REACH.
[2024-08-17] MEDS ORDERED: Mag Hydrox/Al Hydrox/Simeth 18 ML,Lidocaine 2% Viscous Soln 9 ML,Atropine/Scopalam/Hyos... PO ONE (11:25)
--- NOTE | 2024-08-17 12:12 | NUR ---
PT DENIES ANY FURTHER CHEST PAIN. DOLLY DRIVER REPORTS PT CONTINUES IN SB WITH NO CHANGES
--- NOTE | 2024-08-17 19:44 | NUR ---
SHIFT SUMMARY PT A&OXSELF AND IS PLEASANTLY CONFUSED. PT ADMITTED DUE TO UTI. PT INC OF URINE AND BM. ATTENDS IN PLACE AND CHANGED PRN. PT TURNED Q2. VSS. LR RUNNING AT 75ML/HR. THIS AM PT LEFT FOR LOWER SCOPE WAS NPO PRIOR TO PROCEDURE. PT RECEIVED NEW IV IN R FA IN DAY SURG. FLUSHES WELL. PT HAD EPISODE OF CHEST PAIN, DR. SANCHEZ NOTIFIED, EKG COMPLETED. REPEAT EKG COMPLETED AT 12. CHEST PAIN WENT AWAY. PT HAS ELEVATED D-DIMER AND WENT FOR CT PE STUDY AT 1230. PT ON TELE. PT REPORTS NOW NO CHEST PAIN. BLOOD SUGARS ORDERED AC. BLOOD SUGAR PRIOR TO PROCEDURE WAS 112. PT PROBABLY DOES NOT EAT ADEQUATE. PT REFUSES MEALS, ENCOURAGED TO DRINK ENSURE. PT IN RECLINER. CHAIR ALARM ON. CALL LIGHT IN REACH.
[2024-08-18 00:09] VITALS: BP 176/77
[2024-08-18 02:50] VITALS: BP 151/66
--- NOTE | 2024-08-18 03:10 | NUR ---
SHIFT SUMMARY PATIENT HAS APPEARED TO SLEEP COMFORTABLY FOR MOST OF THE SHIFT. TELE IS IN PLACE. PATIENT HAS BEEN SINUS KG IN THE 40'S AND 50'S. WHEN SHE IS AWAKE HER HEART RATE IS IN THE 70=S AND 80'S. PATIENT HAS HER CALL LIGHT WITHIN REACH. SAFETY PRECAUTIONS ARE BEING MAINTAINED.
[2024-08-18 05:36] LABS: Hematocrit 27.9 % (33.0-51.0); Hemoglobin 9.3 g/dL (11.5-16.0); Mean Corpuscular HGB 33.5 pg (26.0-34.0); Mean Corpuscular HGB Conc 33.3 g/dL (31.5-36.5); Mean Corpuscular Volume 100 fL (80-100); Mean Platelet Volume 11.3 fL (9.1-12.4); Platelet Count 179 K/mm3 (150-400); RDW Coefficient Variation 14.4 % (11.7-14.2); RDW Standard Deviation 52.4 fL (35.1-46.3); Red Blood Cell Count 2.78 M/mm3 (3.80-5.20); White Blood Cell Count 5.03 K/mm3 (4.00-11.30)
[2024-08-18 05:55] LABS: Bun/Creatinine Ratio 20.4 (12.0-20.0); Calcium, Blood 8.5 mg/dL (8.5-10.1); Creatinine, Blood 1.42 mg/dL (0.40-1.00); Potassium, Blood 3.7 mmol/L (3.5-5.5)
[2024-08-18 08:03] VITALS: BP 155/68
--- NOTE | 2024-08-18 10:56 | NUR ---
RN PLACED PALLIATIVE CARE ORDER - SHIRLEY HAS HAD A DECREASED PO INTAKE SINCE YESTERDAY AFTERNOON. THIS MORNING SHE REQUIRES 2 PEOPLE FOR ASSISTANCE TO MOVE FROM CHAIR TO BED. PHYSICAL THERAPY ROUNDED AND REPORTS THAT THIS IS A DECLINE IN HER MOBILITY. SHIRLEY IS TEARFUL, C/O GENERALIZED PAIN ALL OVER. STATES SHE IS NOT INTERESTED IN EATING, NO SPECIFIC FOOD SOUNDS GOOD. SHE APPEARS ASLEEP, IN BED, EYES CLOSED. EARLIER THIS AM, UNABLE TO REMEMBER HER BIRTHDATE BUT WAS ABLE TO STATE HER NAME DURING MORNING MED PASS.
--- NOTE | 2024-08-18 14:13 | NUR ---
RN PLACED CALL TO DR. MCADAMS. SHIRLEY'S IV HAS BECOME PAINFUL AND INFILTRATED. DR. MCADAMS WITH ORDERS TO DC LACTATED RINGERS AND TO PLACE A NO IV ACCESS ORDER.
[2024-08-18 16:10] VITALS: BP 160/98
--- NOTE | 2024-08-18 17:32 | NUR ---
SHIRLEY IS A&O X2. RESIDENT OF [facility]. THIS MORNING SHE COULD GIVE HER NAME BUT UNABLE TO GIVE HER BIRTHDATE. TWO PERSON ASSIST WITH GB AND FWW TO CHAIR FROM BED. INCONTINENT IN ATTENDS. SPENT MOST OF THE DAY COLORING WHILE SEATED IN BEDSIDE CHAIR. CHAIR ALARM. PO INTAKE IS 0-20%. SHE ATE TWO FRUIT CUPS, AND DRANK 120ML OF CRAN JUICE. LUNG SOUNDS CLEAR. NO IV ACCESS. COMPLAINS INTERMITTENTLY OF PAIN, BUT CANNOT SPECIFICALLY LOCATE IT. MORE CONFUSED IN THE MORNING, AND MENTATION CLEARED A BIT OVER THE SHIFT. VISITED BY FAMILY.
[2024-08-18 20:47] VITALS: BP 182/83
[2024-08-18 20:50] VITALS: BP 179/72
[2024-08-18] MEDS ORDERED: Mirtazapine 15 MG Tab PO SCH (21:00)
[2024-08-19 03:00] VITALS: BP 159/84
--- NOTE | 2024-08-19 03:22 | NUR ---
SHIFT SUMMARY PATIENT HAS BEEN SLEEPING INTERMITTANTLY THROUGHOUT THE NIGHT. SHE IS ORIENTED X2. SHE HAS HER CALL LIGHT WITHIN REACH AND HAS BEEN INSTRUCTED TO CALL WITH ANY REQUESTS OR NEEDS. BED ALARM IS SET. SAFETY PRECAUTIONS ARE BEING MAINTAINED.
[2024-08-19 07:58] VITALS: BP 175/70
[2024-08-19] MEDS ORDERED: OxyCODONE HCL 5 MG TAB PO SCH (09:00)
[2024-08-19 12:00] VITALS: BP 190/102
[2024-08-19] MEDS ORDERED: PANT40 PO (13:39)
[2024-08-19] MEDS ORDERED: MIRT15 PO (13:39)
[2024-08-19] MEDS ORDERED: OXYC5 PO (13:39)
[2024-08-19 14:22] VITALS: BP 155/63
--- NOTE | 2024-08-19 17:09 | NUR ---
uneventful day for pt, pt transferred to [facility] without incident, vss pt was able to transfer usinf fww and minimal assist to wheel chair.
--- NOTE | 2024-08-19 18:15 | NUR ---
PALLIATIVE CARE NOTE: 1120 MET WITH PT AND DAUGHTER IN ROOM. PT IS AWAKE AND ABLE TO PARTICIPATE IN MEANINGFUL CONVERSATION. DISCUSSED GOALS OF CARE AND POLST. PT AND DAUGHTER STATE THEY WOULD WANT TREATMENT UNLESS SHE WAS A VEGETABLE. EDUCATED PT/DAUGHTER ON POLST, CPR/FULL MEASURES VS DNR/ COMFORT MEASURES OR SELECTIVE TREATMENT. PT/DAUGHTER WERE IN AGREEMENT THEY WOULD WANT DNR WITH SELECTIVE TREATMENT. REDID POLST INDICATED. DR. MCADAMS SIGNED AND PLACED COPY AND ORIGINAL IN CHART AND SENT COPY TO REGISTRY. DISCUSSED QUALITY OF LIFE WITH FAMILY. DAUGHTER REPORTED HER MOM MOVED TO [facility] AND INITIALLY STOPPED EATING BECAUSE SHE WAS MAD AT BEING PLACED THERE. BUT WHEN SHE MET FRIENDS, SHE BEGAN EATING AGAIN AND NOW ENJOYS LIVING AT [facility] AND THEN GAINED HER WEIGHT BACK AND SOME. PT STATED SHE WAS FEELING WELL ENOUGH TO GO BACK TO [place]. DISCUSSED CONCERNS OF DECREASED APPETITE WITH PT. SHE STATES THE FOOD IS BLAND AND DOES NOT TASTE GOOD. HER DAUGHTER SPICES FOOD UP SO SHE LIKES IT. PT STATES SHE LIKES BEANS, THAI FOOD. PT IS AGREEABLE TO DRINKING VANILLA ENSURES. PROVIDED PT WITH MAX VANILLA ENSURE AND SHE WAS DRINKING IT DURING OUR VISIT. DAUGHTER RIGO STATED SHE WOULD PICK SOME UP FOR HER. DISCUSSED FAMILY MEETING OUTCOME WITH DR. MCADAMS, AUTO BODY REPAIRER AND PRIMARY RN.
== END 2024-08-19 14:46 | disposition home health service (06) | DRG 689 ==
LOC: ER 08:04 → ERHOLD 13:24 → MEDS 13:24
PROVIDERS: Emergency Medicine; Hospitalist; Internal Medicine; Internal Medicine Gastroenterology; ADMIT Family Medicine
PROC: 0DB78ZX Excision of Stomach, Pylorus, Via Natural or Artificial Opening Endoscopic, Diagnostic (ICD-10-PCS; principal; 2024-08-16 08:00)
PROC: 0DB98ZX Excision of Duodenum, Via Natural or Artificial Opening Endoscopic, Diagnostic (ICD-10-PCS; principal; 2024-08-16 08:00)
DX: N39.0 Urinary tract infection, site not specified (principal); G92.8 Other toxic encephalopathy; K26.4 Chronic or unspecified duodenal ulcer with hemorrhage; E87.1 Hypo-osmolality and hyponatremia; I50.32 Chronic diastolic (congestive) heart failure; N18.4 Chronic kidney disease, stage 4 (severe); R44.0 Auditory hallucinations; E87.22 Chronic metabolic acidosis; Z66 Do not resuscitate; E78.00 Pure hypercholesterolemia, unspecified; E11.42 Type 2 diabetes mellitus with diabetic polyneuropathy; K21.9 Gastro-esophageal reflux disease without esophagitis; D50.9 Iron deficiency anemia, unspecified; E83.51 Hypocalcemia; E11.22 Type 2 diabetes mellitus with diabetic chronic kidney disease; I95.9 Hypotension, unspecified; Z51.5 Encounter for palliative care; D63.1 Anemia in chronic kidney disease; R07.81 Pleurodynia; R06.02 Shortness of breath; R63.0 Anorexia; R09.02 Hypoxemia; Z87.19 Personal history of other diseases of the digestive system; Z87.891 Personal history of nicotine dependence; Z79.899 Other long term (current) drug therapy; Z79.85 Long-term (current) use of injectable non-insulin antidiabetic drugs; Z79.84 Long term (current) use of oral hypoglycemic drugs; Z79.4 Long term (current) use of insulin; Z90.49 Acquired absence of other specified parts of digestive tract; Z93.3 Colostomy status; Z68.36 Body mass index [BMI] 36.0-36.9, adult; W18.39XA Other fall on same level, initial encounter; M25.511 Pain in right shoulder; S43.401A Unspecified sprain of right shoulder joint, initial encounter; D64.9 Anemia, unspecified; W18.30XA Fall on same level, unspecified, initial encounter; Z79.83 Long term (current) use of bisphosphonates; Z79.1 Long term (current) use of non-steroidal anti-inflammatories (NSAID)
CPT/HCPCS: 36415; 51701; 70450; 71045; 71260; 72170; 73030; 80048; 80053; 81001; 82272; 82330; 82607; 82947; 83735; 83880; 84439; 84443; 84484; 85014; 85018; 85025; 85027; 85379; 88305; 88313; 88342; 93005; 93010; 94760; 96374; 96375; 96376; 97110; 97116; 97162; 97530; 99284-25; 99285-25; A9270; J0612; J0696; J1650; J2270; J2405; J2470; J2704; J7030; J7040; J7120; P9612; Q9967

== ENCOUNTER 2024-08-20 12:40 | Emergency (ER) | payer MEDICARE, OTHER ==
[~2024-08-20] VITALS: Ht 142.2 cm; Wt 69.4 kg
[~2024-08-20 12:40] MED LIST changes: +BASAGLAR K100 UNIT/3 SC; +INSULANI SC; +INSULIN LI100 UNIT/6; +LIDOTOR 2.5%-21 EACH TOP; +MIRT15 PO; +OXYC5 PO; +PANT40 PO; +PATADAY BOTHEYES; +TRADJENTA5 MG PO; +VITAMIN C125 MG PO
[2024-08-20 15:27] LABS: BASOPHILS ABSOLUTE AUTO 0.02 K/mm3 (0.00-0.23); BASOPHILS PERCENT AUTO 0 % (0-2); EOSINOPHILS ABSOLUTE AUTO 0.14 K/mm3 (0.00-0.68); EOSINOPHILS PERCENT AUTO 2 % (0-6); Hematocrit 25.7 % (33.0-51.0); Hemoglobin 8.5 g/dL (11.5-16.0); IMMATURE GRAN ABSOLUTE AUTO 0.14 K/mm3 (0.00-0.10); IMMATURE GRAN PERCENT AUTO 2 % (0-1); LYMPHOCYTES ABSOLUTE AUTO 0.65 K/mm3 (0.84-5.20); LYMPHOCYTES PERCENT AUTO 9 % (21-46); MONOCYTES ABSOLUTE AUTO 0.46 K/mm3 (0.16-1.47); MONOCYTES PERCENT AUTO 6 % (4-13); Mean Corpuscular HGB 33.5 pg (26.0-34.0); Mean Corpuscular HGB Conc 33.1 g/dL (31.5-36.5); Mean Corpuscular Volume 101 fL (80-100); Mean Platelet Volume 11.1 fL (9.1-12.4); NEUTROPHILS PERCENT AUTO 81 % (41-73); Platelet Count 185 K/mm3 (150-400); RDW Coefficient Variation 14.8 % (11.7-14.2); RDW Standard Deviation 54.4 fL (35.1-46.3); Red Blood Cell Count 2.54 M/mm3 (3.80-5.20); White Blood Cell Count 7.51 K/mm3 (4.00-11.30)
[2024-08-20 15:42] LABS: Albumin, Blood 2.8 g/dL (3.4-5.0); Albumin/Globulin Ratio 0.7 (0.8-1.8); Bilirubin, Total 0.2 mg/dL (0.1-1.0); Bun/Creatinine Ratio 17.6 (12.0-20.0); Calcium, Blood 8.3 mg/dL (8.5-10.1); Creatinine, Blood 2.22 mg/dL (0.40-1.00); Globulin, Blood 4.1 g/dL (2.2-4.0); Potassium, Blood 3.2 mmol/L (3.5-5.5); Total Protein, Blood 6.9 g/dL (6.4-8.2)
[2024-08-20 20:15] VITALS: BP 180/62
== END 2024-08-20 20:34 | disposition home or self-care (01) ==
LOC: ER 12:40
PROVIDERS: Student in an Organized Health Care Education/Training Program
DX: S63.502A Unspecified sprain of left wrist, initial encounter (principal); S09.90XA Unspecified injury of head, initial encounter; E11.42 Type 2 diabetes mellitus with diabetic polyneuropathy; E11.22 Type 2 diabetes mellitus with diabetic chronic kidney disease; N18.4 Chronic kidney disease, stage 4 (severe); E78.00 Pure hypercholesterolemia, unspecified; K21.9 Gastro-esophageal reflux disease without esophagitis; I50.30 Unspecified diastolic (congestive) heart failure; Z87.891 Personal history of nicotine dependence; Z79.4 Long term (current) use of insulin; Z79.84 Long term (current) use of oral hypoglycemic drugs; Z79.899 Other long term (current) drug therapy; W18.30XA Fall on same level, unspecified, initial encounter
CPT/HCPCS: 70450; 72040; 73090; 73110; 80053; 83880; 84484; 85025; 93005; 93010; 99284-25

== ENCOUNTER → 2024-09-01 | Outpatient (CLI) | payer MEDICARE, OTHER ==
[2024-09-01 17:10] LABS: Albumin, Blood 2.9 g/dL (3.4-5.0); Albumin/Globulin Ratio 0.7 (0.8-1.8); Bilirubin, Total 0.4 mg/dL (0.1-1.0); Bun/Creatinine Ratio 16.4 (12.0-20.0); Calcium, Blood 8.3 mg/dL (8.5-10.1); Creatinine, Blood 1.89 mg/dL (0.40-1.00); Potassium, Blood 3.5 mmol/L (3.5-5.5); Total Protein, Blood 6.9 g/dL (6.4-8.2)
== END ==
LOC: LAB 11:30 → LAB SHORT 11:30
DX: M79.89 Other specified soft tissue disorders (principal)
CPT/HCPCS: 80053

== ENCOUNTER 2024-09-02 04:38 | Day surgery (SDC) | payer MEDICARE, OTHER | END 2024-09-02 23:00 | disposition home or self-care (01) | LOC: WOUND | DX: E11.622 Type 2 diabetes mellitus with other skin ulcer (principal); T81.31XA Disruption of external operation (surgical) wound, not elsewhere classified, initial encounter; S31.104D Unspecified open wound of abdominal wall, left lower quadrant without penetration into peritoneal cavity, subsequent encounter; X58.XXXD Exposure to other specified factors, subsequent encounter; L02.211 Cutaneous abscess of abdominal wall; K63.2 Fistula of intestine | CPT/HCPCS: A6196; A6213; G0463 ==

== ENCOUNTER 2024-09-16 09:42 | Inpatient (IN) | payer MEDICARE, OTHER ==
[~2024-09-16] VITALS: Ht 147.3 cm; Wt 71.8 kg
[2024-09-16 10:43] LABS: BASOPHILS ABSOLUTE AUTO 0.02 K/mm3 (0.00-0.23); BASOPHILS PERCENT AUTO 0 % (0-2); EOSINOPHILS ABSOLUTE AUTO 0.06 K/mm3 (0.00-0.68); EOSINOPHILS PERCENT AUTO 1 % (0-6); Hematocrit 25.9 % (33.0-51.0); Hemoglobin 8.8 g/dL (11.5-16.0); IMMATURE GRAN ABSOLUTE AUTO 0.06 K/mm3 (0.00-0.10); IMMATURE GRAN PERCENT AUTO 1 % (0-1); LYMPHOCYTES ABSOLUTE AUTO 1.02 K/mm3 (0.84-5.20); LYMPHOCYTES PERCENT AUTO 15 % (21-46); MONOCYTES ABSOLUTE AUTO 0.57 K/mm3 (0.16-1.47); MONOCYTES PERCENT AUTO 8 % (4-13); Mean Corpuscular HGB 33.6 pg (26.0-34.0); Mean Corpuscular Volume 99 fL (80-100); Mean Platelet Volume 11.3 fL (9.1-12.4); NEUTROPHILS ABSOLUTE AUTO 5.05 K/mm3 (1.96-9.15); NEUTROPHILS PERCENT AUTO 75 % (41-73); Platelet Count 222 K/mm3 (150-400); RDW Coefficient Variation 14.6 % (11.7-14.2); RDW Standard Deviation 52.9 fL (35.1-46.3); Red Blood Cell Count 2.62 M/mm3 (3.80-5.20); White Blood Cell Count 6.78 K/mm3 (4.00-11.30)
[2024-09-16] MEDS ORDERED: NS 500 ML IV SCH (10:50)
[2024-09-16 10:57] LABS: Alanine Aminotransfer (ALT/SGP 16 U/L (12-78); Albumin, Blood 2.5 g/dL (3.4-5.0); Albumin/Globulin Ratio 0.5 (0.8-1.8); Alk Phos 152 U/L (50-136); Anion Gap 12 mmol/L (3-11); Aspartate Aminotrans (AST/SGOT 18 U/L (12-37); Bilirubin, Total 0.5 mg/dL (0.1-1.0); Blood Urea Nitrogen 44 mg/dL (8-24); Bun/Creatinine Ratio 17.9 (12.0-20.0); CO2, Blood 26 mmol/L (21-32); Chloride, Blood 103 mmol/L (98-108); Creatinine, Blood 2.46 mg/dL (0.40-1.00); Ethanol (Alcohol), Blood, Med <3 mg/dL; Globulin, Blood 4.6 g/dL (2.2-4.0); Glomerular Filtration Rate 19 (60-); Glucose, Blood 124 mg/dL (70-99); Potassium, Blood 3.6 mmol/L (3.5-5.5); Sodium, Blood 137 mmol/L (136-145); Total Protein, Blood 7.1 g/dL (6.4-8.2)
[2024-09-16] MEDS ORDERED: NS 1,000 ML IV SCH ×3 (12:45→16:00)
[2024-09-16 13:59] LABS: Source, Urine Fem Cath
[2024-09-16 14:08] LABS: Appearance, Urine Hazy (Clear); Bilirubin, Urine Neg (Neg); Blood, Urine 4+ (Neg); Color, Urine Yellow (P-Yellow); Glucose Qualitative, Urine Neg (Neg); Ketones, Urine Neg (Neg); Leukocyte Esterase, Urine 3+ (Neg); Nitrite, Urine Neg (Neg); Protein, Urine 3+ (Neg); Specific Gravity, Urine 1.015 (1.003-1.022); Urobilinogen, Urine NORM (Normal)
[2024-09-16 14:21] LABS: U Amphetamine Screen Not Detected; U Barbituate Screen Not Detected; U Benzodiazapine Screen Not Detected; U Buprenorphine Screen Not Detected; U Cannabinoids Screen Not Detected; U Cocaine Screen Not Detected; U Methadone Screen Not Detected; U Methamphetamine Screen Not Detected; U Opiates Screen Not Detected; U Oxycodone Screen Not Detected; U Phencyclidine Screen Not Detected
[2024-09-16 14:36] LABS: Bacteria Many /hpf; Renal Epithelial Rare /hpf (0-Rare); Squamous Epithelial Cells Not Seen /hpf (Few); White Blood Cells, Urine TNTC /hpf (0-5)
[2024-09-16] MEDS ORDERED: CefTRIAXone Sodium 1,000 MG in NS 100 ML IV ONE (14:45)
[2024-09-16] MEDS ORDERED: Magnesium Hydroxide Conc 10 ML UDC PO PRN (15:50)
[2024-09-16 17:16] VITALS: BP 159/85
--- NOTE | 2024-09-16 18:21 | NUR ---
PT ADMITTED TO UNIT AT APPROX 1700 FROM ER FOR WEAKNESS AND ALTERED MENTAL STATUS LIKELY R/T UTI. PT HAS BEDREST ORDERS, PT TRANSFERRED TO HOSPITAL BED USING SLIDE SHEET AND [address] - SR @ 87. PT DENIES PAIN, SOB, CHEST PAIN. VITALS STABLE. A/Ox3. REPORTS FEELING TIRED. NS STARTED AT 75 ML/HR PER ORDERS. ORDER OBTAINED FOR AC/HS CBG. MED LIST REQUESTED FROM FACILITY. PT ORIENTED TO ROOM AND CALL SYSTEM. PT CURRENTLY RESTING IN BED WITH CALL LIGHT WITHIN REACH AND BED IN LOWEST POSITION, BED ALARM ON. WICKING SYSTEM IN PLACE.
--- NOTE | 2024-09-16 18:40 | NUR ---
FAXED RECIEVED FROM FACILITY RE MED LIST - ONLY PARTIAL MED LIST FAXED. THIS [facility] CONTACTED FACILITY. RO RESENDING MED LIST. WILL NOTIFY ONCOMING RN. NOTE ALSO PLACED ON PT BOARD IN ROOM.
[2024-09-16] MEDS ORDERED: INSULANI SC (18:52)
[2024-09-16] MEDS ORDERED: HUMALOG KW100 UNIT/1 SC (18:59)
--- NOTE | 2024-09-16 19:03 | NUR ---
MED REC COMPLETED PER FACILITY MED LIST.
[2024-09-16 20:43] VITALS: BP 171/85
[2024-09-16] MEDS ORDERED: Lactobacil 2-S.Thermo-Bifido 1 1 Cap PO SCH (21:00)
[2024-09-16] MEDS ORDERED: Heparin Sodium,Porcine 5,000 UNIT/0.5 ML SDV SC SCH (21:00)
[2024-09-16] MEDS ORDERED: Famotidine 20 MG Tab PO SCH (21:00)
[2024-09-17 00:09] VITALS: BP 152/78
[2024-09-17 04:11] VITALS: BP 165/87
--- NOTE | 2024-09-17 04:42 | NUR ---
SHIFT SUMMARY PT HAS BEEN RESTING COMFORTABLY IN BED OVERNIGHT. PT HAS BEEN AOX3, CALM AND COOPERATIVE. PT HAS BEEN FORGETFUL WELL. SHE STATES SHE HAS AUDITORY HALLUCINATIONS. ASKED PT ABOUT THEM, STATED SHE HAS HAD THEM FOR A WHILE. PT HAS BEEN ON BEDREST OVERNIGHT. PT HAS BEEN INCONTINENT, ATTACHED TO PURWIK. PT HAS ALSO BEEN ON TELEMETRY. NO COMPLAINTS OVERNIGHTS. NO ACUTE EVENTS OVERNIGHT.
[2024-09-17] MEDS ORDERED: Pantoprazole Sodium 20 MG Tab PO SCH (06:00)
[2024-09-17 06:17] LABS: Bun/Creatinine Ratio 18.8 (12.0-20.0); Calcium, Blood 7.7 mg/dL (8.5-10.1); Creatinine, Blood 2.07 mg/dL (0.40-1.00); Potassium, Blood 3.5 mmol/L (3.5-5.5)
[2024-09-17 07:22] VITALS: BP 149/73
[2024-09-17] MEDS ORDERED: Acetaminophen 500 MG Tab PO PRN (07:45)
[2024-09-17] MEDS ORDERED: Calcium Carbonate 500 MG Tab Chew PO PRN (07:50)
[2024-09-17] MEDS ORDERED: Loperamide HCl 2 MG Cap PO PRN (07:50)
[2024-09-17] MEDS ORDERED: LIDOCAINE 2.5%/PRILOCAINE 2.5% CREAM 30 GM TUBE TOP PRN (07:55)
[2024-09-17] MEDS ORDERED: Ferrous Sulfate 325 MG Tab PO SCH (09:00)
[2024-09-17] MEDS ORDERED: Ascorbic Acid 250 MG Chew PO SCH (09:00)
[2024-09-17] MEDS ORDERED: Pregabalin 75 MG Cap PO SCH (09:00)
[2024-09-17] MEDS ORDERED: OLOPATADINE BOTHEYES SCH (09:00)
[2024-09-17] MEDS ORDERED: Cholecalciferol 1000 Unit Tablet (=25MCG) PO SCH (09:00)
[2024-09-17] MEDS ORDERED: PredniSONE 20 MG Tab PO SCH (11:00)
[2024-09-17] MEDS ORDERED: Insulin Human Lispro 100 Units/ML 3ML Syringe SC SCH (11:30)
[2024-09-17] MEDS ORDERED: NS 1,000 ML IV SCH (12:45)
--- NOTE | 2024-09-17 13:55 | NUR ---
Spiritual care visit conducted. Upon receiving a referral for spiritual care, I visited the patient. 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 She talks about her 6 kids and the many challenges they have faced. She is tearful as she explains about her family unit complications and the loss and betrayal she has suffered. We talk about forgiveness, antonio and dave. We explore healthy ways to think and pull in forgivenenss on a thought by thought basis. I provided therapeutic listening, gentle phone counselor and prayer. The patient responded well and showed signs of catharsis and greater peace. I will continue to remain available.
[2024-09-17] MEDS ORDERED: CefTRIAXone Sodium 1,000 MG in NS 100 ML IV SCH (15:00)
--- NOTE | 2024-09-17 17:22 | NUR ---
SHIFT SUMMARY PATIENT ALERT BUT FORGETFUL. PATIENT ALSO STATES THAT SHE IS HARD OF HEARING AND THAT IT IS NEW. PATIENT HAVING PAIN IN BOTH WRISTS, R GREATER THAN L. X RAY DONE ON R WRIST. FAMILY REPORTED THAT PATIENT FELL OVER A WEEK AGO WHEN SHE WAS FIRST DIAGNOSED WITH UTI. FAMILY REPORTED THAT SHE HAD SOME WRIST PAIN THEN. FAMILY UNSURE IF SHE HAD FALLEN AGAIN PRIOR TO THIS ADMISSION. PATIENT HAVING TROUBLES HOLDING FORK WHEN ATTEMPTING TO EAT. PATIENT NEEDING SOME ASSISTANCE WITH MEALS. PATIENT NOTED TO BE INCONTINENT WITH URINE. PUREWICK SYSTEM BEING USED AT THIS TIME. PATIENT HAVING STRONG FOUL YEAST SMELLING ODOR OF PANIS AND INGUINAL FOLDS. ORDER OBTAINED FOR DESENEX POWDER. DRESSIING CHANGED OVER ABDOMINAL WOUND PER ORDERS. FAMILY CALLED FOR AN UPDATE OF PATIENT'S CONDITION. PATIENT CURRENTLY RESIDING AT [facility] PRIOR TO ADMISSION.
[2024-09-17 17:36] VITALS: BP 157/73
[2024-09-17 19:49] VITALS: BP 153/75
[2024-09-17] MEDS ORDERED: Insulin Glargine-Yfgn 100 Unit/mL 3 ML SYR SC SCH (21:00)
[2024-09-17 23:42] VITALS: BP 104/55
[2024-09-18] VITALS (7 sets, daily range): BP systolic 115–183; BP diastolic 47–74
--- NOTE | 2024-09-18 04:52 | NUR ---
SHIFT SUMMARY PT A&Ox3 AND PLEASANT. NO C/O PAIN. PURWICK IN PLACE AND DRAINING YELLOW, CLOUDY URINE. BILATERAL HANDS SWOLLEN BUT PT STATES THAT THEY DON'T HURT IF THEY STAY WARM. WARM BLANKET PROVIDED. PT's BG 233 AT HS AND GLARGINE GIVEN PER EMAR. PT ABLE TO SLEEP MOST OF THE NIGHT. NO EVENTS ON TELE. VSS. BED IN LOWEST POSITION AND CALL LIGHT IN REACH.
[2024-09-18 05:49] LABS: Bun/Creatinine Ratio 19.7 (12.0-20.0); Calcium, Blood 7.3 mg/dL (8.5-10.1); Creatinine, Blood 1.93 mg/dL (0.40-1.00); Potassium, Blood 3.9 mmol/L (3.5-5.5)
--- NOTE | 2024-09-18 09:53 | NUR ---
DR. FLOOD NOTIFIED OF PATIENT'S KG EVENT THIS MORNING AT 0830; PT AWAKE; NO SIGNS OR SYMPTOMS. REVIEWED BOTH THE PATIENT'S EKG FROM ADMIMISSION; SHOWED SR 76 NORMAL DC AND QRS. 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 FLOOD NOTIFIED.
[2024-09-18] MEDS ORDERED: Miconazole Nitrate 2% 85 GM PWD TOP ONE (13:20)
--- NOTE | 2024-09-18 16:43 | NUR ---
STUDENT NURSE NOTE: PATIENT SBP HAS BEEN SOFT, CONTACTED PROVIDER REGARDING SBP 183. HYDROLEZINE 10MG IV Q6 HOURS FOR SBP [address] FLOOD.
[2024-09-18] MEDS ORDERED: HydrALAZINE HCl 20 MG / ML 1ML Vial IV PRN (16:45)
--- NOTE | 2024-09-18 17:03 | NUR ---
REVIEWED ANAESTHETIC TECHNICIAN'S DOCUMENTATION AND AGREEABLE WITH FINDINGS IF NOT AGREEABLE, REVIEWED WITH STUDENT/REASSESSED AND UPDATED CHARTING OR DOCUMENTED MY OWN FINDINGS
--- NOTE | 2024-09-18 17:07 | NUR ---
SHIFT SUMMARY: PATIENT WAS PLEASANT AND COOPERATIVE WITH CARE TODAY. TELEMETRY IN PLACE , SINUS KG 60'S: NO AV BLOCK OR BBB SEEN ON ADMITTING ECG, RN NOTED AND CONTACTED PROVIDER. URINE SPECIMEN COLLECTED AND CHARTED BY RN, NEW ORDER FOR DESENEX POWDER TO GROIN AND JJ AREA, PATIENT HAS PUREWICK IN PLACE. POSSIBLE DISCHARGE TO [facility] 09/19/2024 PER PROVIDER.
[2024-09-18] MEDS ORDERED: Miconazole Nitrate 2% 85 GM PWD TOP SCH (21:00)
[2024-09-18] MEDS ORDERED: Ciprofloxacin 500 MG Tab PO SCH ×2 (21:00)
[2024-09-19 00:35] VITALS: BP 132/55
[2024-09-19 03:28] VITALS: BP 140/58
--- NOTE | 2024-09-19 05:13 | NUR ---
SHIFT SUMMARY PT A&Ox4 AND PLEASANT. NO C/O PAIN. PT UP IN CHAIR AT START OF SHIFT. 1 PERSON ASSIST BACK TO BED. LEGS SWOLLEN SO SOCKS REMOVED AND LEGS ELEVATED ON PILLOWS. SCD's PLACED BUT PT WAS ONLY ABLE TO TOLERATE FOR A COUPLE HOURS. ON TELE AND PT HAD SHORT RUN OF SINUS KG IN THE 40'S AROUND 0230 WHILE SLEEPING. PT HAD FIRST DOSE OF ORAL CIPROFLOXACIN AT HS. VSS. BED ALARM ON. BED IN LOWEST POSITION AND CALL LIGHT IN REACH.
[2024-09-19 07:38] VITALS: BP 126/53
[2024-09-19] MEDS ORDERED: CIPR500 PO (11:18)
[2024-09-19] MEDS ORDERED: MICONAZOLE NIT130 GM TOP (11:19)
[2024-09-19] MEDS ORDERED: PRED20 PO (11:20)
[2024-09-19] MEDS ORDERED: VISBIOME 112.51 EACH PO (11:20)
--- NOTE | 2024-09-19 11:53 | NUR ---
DISCHARGE NOTE: PATIENT GOT READY FOR DISCHARGE, IV AND TELE REMOVED, PATIENT'S BELONGINGS COLLECTED. MEDICAL TRANSPORT ARRIVED VIA WHEELCHAIR FOR THE PATIENT. PATIENT WAS ABLE TO TRANSFER INTO THE WHEELCHAIR WITH MINIMAL ASSISTANCE. PAPERWORK PROVIDED TO THE PATIENT AND THE MEDICAL TRANSPORTER. NO SIGNS OR SYMPTOMS OF DISTRESS WITIH DISCHARGE.
--- NOTE | 2024-09-19 12:22 | NUR ---
REVIEWED FLASK CARRIER'S DOCUMENTATION AND AGREEABLE WITH FINDINGS.
[2024-09-19 23:30] LABS: VITAMIN D,1,25-DIHYDROXY 53.2 pg/mL (19.9-79.3)
== END 2024-09-19 11:41 | disposition home health service (06) | DRG 682 ==
LOC: ER 09:42 → MEDS 15:40 → ER 16:52 → MEDS 16:56 → ENPENDDIS 09-18 16:24 → MEDS 09-19 11:41
PROVIDERS: Student in an Organized Health Care Education/Training Program; ADMIT Internal Medicine
DX: N17.9 Acute kidney failure, unspecified (principal); G92.8 Other toxic encephalopathy; N39.0 Urinary tract infection, site not specified; I50.32 Chronic diastolic (congestive) heart failure; N18.30 Chronic kidney disease, stage 3 unspecified; B95.2 Enterococcus as the cause of diseases classified elsewhere; Z66 Do not resuscitate; M25.531 Pain in right wrist; E11.42 Type 2 diabetes mellitus with diabetic polyneuropathy; E11.22 Type 2 diabetes mellitus with diabetic chronic kidney disease; E66.9 Obesity, unspecified; E11.65 Type 2 diabetes mellitus with hyperglycemia; H70.92 Unspecified mastoiditis, left ear; J32.0 Chronic maxillary sinusitis; D63.1 Anemia in chronic kidney disease; Z79.4 Long term (current) use of insulin; Z79.891 Long term (current) use of opiate analgesic; Z79.84 Long term (current) use of oral hypoglycemic drugs; Z87.891 Personal history of nicotine dependence; Z68.31 Body mass index [BMI] 31.0-31.9, adult
CPT/HCPCS: 36415; 70450; 73110; 80048; 80053; 80320; 81001; 82306; 82570; 82652; 82947; 83970; 84300; 84550; 85025; 87077; 87086; 87186; 93005; 93010; 96361; 96365; 97161; 97530; 99285-25; A6590; A9270; J0360; J0696; J1644; J1815; J2470; J7030; J7512

== ENCOUNTER 2024-09-21 02:57 | Emergency (ER) | payer MEDICARE, OTHER ==
[~2024-09-21] VITALS: Ht 162.6 cm; Wt 79.4 kg
[~2024-09-21 02:57] MED LIST changes: +CIPR500 PO; +HUMALOG KW100 UNIT/1 SC; +MICONAZOLE NIT130 GM TOP; +PRED20 PO; +VISBIOME 112.51 EACH PO
[2024-09-21 03:57] LABS: BASOPHILS ABSOLUTE AUTO 0.03 K/mm3 (0.00-0.23); BASOPHILS PERCENT AUTO 0 % (0-2); EOSINOPHILS ABSOLUTE AUTO 0.08 K/mm3 (0.00-0.68); EOSINOPHILS PERCENT AUTO 1 % (0-6); Hematocrit 25.4 % (33.0-51.0); Hemoglobin 8.6 g/dL (11.5-16.0); IMMATURE GRAN ABSOLUTE AUTO 0.38 K/mm3 (0.00-0.10); IMMATURE GRAN PERCENT AUTO 5 % (0-1); LYMPHOCYTES ABSOLUTE AUTO 1.08 K/mm3 (0.84-5.20); LYMPHOCYTES PERCENT AUTO 13 % (21-46); MONOCYTES ABSOLUTE AUTO 0.64 K/mm3 (0.16-1.47); MONOCYTES PERCENT AUTO 8 % (4-13); Mean Corpuscular HGB 33.1 pg (26.0-34.0); Mean Corpuscular HGB Conc 33.9 g/dL (31.5-36.5); Mean Corpuscular Volume 98 fL (80-100); Mean Platelet Volume 10.4 fL (9.1-12.4); NEUTROPHILS ABSOLUTE AUTO 5.98 K/mm3 (1.96-9.15); NEUTROPHILS PERCENT AUTO 73 % (41-73); Platelet Count 215 K/mm3 (150-400); RDW Coefficient Variation 13.8 % (11.7-14.2); RDW Standard Deviation 49.3 fL (35.1-46.3); White Blood Cell Count 8.19 K/mm3 (4.00-11.30)
[2024-09-21 04:17] LABS: Albumin, Blood 2.5 g/dL (3.4-5.0); Albumin/Globulin Ratio 0.7 (0.8-1.8); Bilirubin, Total 0.2 mg/dL (0.1-1.0); Bun/Creatinine Ratio 30.1 (12.0-20.0); Calcium, Blood 7.7 mg/dL (8.5-10.1); Creatinine, Blood 1.56 mg/dL (0.40-1.00); Globulin, Blood 3.8 g/dL (2.2-4.0); Potassium, Blood 3.3 mmol/L (3.5-5.5); Total Protein, Blood 6.3 g/dL (6.4-8.2)
[2024-09-21] MEDS ORDERED: DOXY100 PO (05:09)
[2024-09-21] MEDS ORDERED: Doxycycline Hyclate 100 MG TAB PO ONE (05:10)
[2024-09-21 06:00] VITALS: BP 115/43
== END 2024-09-21 08:18 | disposition home or self-care (01) ==
LOC: ER 02:57
PROVIDERS: Emergency Medicine
DX: L03.113 Cellulitis of right upper limb (principal); E11.42 Type 2 diabetes mellitus with diabetic polyneuropathy; E11.22 Type 2 diabetes mellitus with diabetic chronic kidney disease; N18.4 Chronic kidney disease, stage 4 (severe); E78.00 Pure hypercholesterolemia, unspecified; K21.9 Gastro-esophageal reflux disease without esophagitis; I50.30 Unspecified diastolic (congestive) heart failure; Z87.891 Personal history of nicotine dependence; Z79.4 Long term (current) use of insulin; Z79.899 Other long term (current) drug therapy
CPT/HCPCS: 73030; 73120; 80053; 85025; 93005; 93010; 99284-25; A9270

== ENCOUNTER 2024-09-30 00:54 | Day surgery (SDC) | payer MEDICARE, OTHER ==
[~2024-09-30 00:54] MED LIST changes: +DOXY100 PO
== END 2024-09-30 23:00 ==
LOC: WOUND 00:54
DX: T81.30XA Disruption of wound, unspecified, initial encounter (principal); K63.2 Fistula of intestine; L02.211 Cutaneous abscess of abdominal wall; E11.622 Type 2 diabetes mellitus with other skin ulcer
CPT/HCPCS: G0463

== ENCOUNTER 2024-11-06 07:43 | Day surgery (SDC) | payer MEDICARE, OTHER ==
[2024-11-06] MEDS ORDERED: Sod Ferric Gluc Complx/Sucrose 125 MG in NS 100 ML IV SCH (12:50)
[2024-11-06 13:50] VITALS: BP 113/52
== END 2024-11-06 14:35 | disposition home or self-care (01) ==
LOC: ATC 07:43
DX: I12.9 Hypertensive chronic kidney disease with stage 1 through stage 4 chronic kidney disease, or unspecified chronic kidney disease (principal); E11.22 Type 2 diabetes mellitus with diabetic chronic kidney disease; N18.4 Chronic kidney disease, stage 4 (severe); D63.1 Anemia in chronic kidney disease; K21.9 Gastro-esophageal reflux disease without esophagitis; E78.1 Pure hyperglyceridemia; E11.40 Type 2 diabetes mellitus with diabetic neuropathy, unspecified; M19.90 Unspecified osteoarthritis, unspecified site; M81.0 Age-related osteoporosis without current pathological fracture; E11.51 Type 2 diabetes mellitus with diabetic peripheral angiopathy without gangrene; I73.00 Raynaud's syndrome without gangrene; N25.81 Secondary hyperparathyroidism of renal origin; Z87.891 Personal history of nicotine dependence; Z79.4 Long term (current) use of insulin; Z79.84 Long term (current) use of oral hypoglycemic drugs; Z79.899 Other long term (current) drug therapy
CPT/HCPCS: 96365; J2916

== ENCOUNTER 2024-11-07 03:26 | Day surgery (SDC) | payer MEDICARE, OTHER ==
[2024-11-07] MEDS ORDERED: Sod Ferric Gluc Complx/Sucrose 125 MG in NS 100 ML IV SCH (06:00)
[2024-11-07 15:30] VITALS: BP 127/53
== END 2024-11-07 16:36 | disposition home or self-care (01) ==
LOC: ATC 03:26
DX: I12.9 Hypertensive chronic kidney disease with stage 1 through stage 4 chronic kidney disease, or unspecified chronic kidney disease (principal); E11.22 Type 2 diabetes mellitus with diabetic chronic kidney disease; N18.4 Chronic kidney disease, stage 4 (severe); D63.1 Anemia in chronic kidney disease; K21.9 Gastro-esophageal reflux disease without esophagitis; E78.1 Pure hyperglyceridemia; E11.40 Type 2 diabetes mellitus with diabetic neuropathy, unspecified; M19.90 Unspecified osteoarthritis, unspecified site; M81.0 Age-related osteoporosis without current pathological fracture; E11.51 Type 2 diabetes mellitus with diabetic peripheral angiopathy without gangrene; I73.00 Raynaud's syndrome without gangrene; N25.81 Secondary hyperparathyroidism of renal origin; Z87.891 Personal history of nicotine dependence; Z79.4 Long term (current) use of insulin; Z79.84 Long term (current) use of oral hypoglycemic drugs; Z79.899 Other long term (current) drug therapy
CPT/HCPCS: 96365; J2916

== ENCOUNTER 2024-11-10 00:54 | Day surgery (SDC) | payer MEDICARE, OTHER ==
[2024-11-10] MEDS ORDERED: Sod Ferric Gluc Complx/Sucrose 125 MG in NS 100 ML IV SCH (01:00)
[2024-11-10 15:45] VITALS: BP 134/66
== END 2024-11-10 16:45 | disposition home or self-care (01) ==
LOC: ATC 00:54
DX: I12.9 Hypertensive chronic kidney disease with stage 1 through stage 4 chronic kidney disease, or unspecified chronic kidney disease (principal); E11.22 Type 2 diabetes mellitus with diabetic chronic kidney disease; N18.4 Chronic kidney disease, stage 4 (severe); D63.1 Anemia in chronic kidney disease; K21.9 Gastro-esophageal reflux disease without esophagitis; E78.1 Pure hyperglyceridemia; E11.40 Type 2 diabetes mellitus with diabetic neuropathy, unspecified; M19.90 Unspecified osteoarthritis, unspecified site; M81.0 Age-related osteoporosis without current pathological fracture; E11.51 Type 2 diabetes mellitus with diabetic peripheral angiopathy without gangrene; I73.00 Raynaud's syndrome without gangrene; N25.81 Secondary hyperparathyroidism of renal origin; Z87.891 Personal history of nicotine dependence; Z79.4 Long term (current) use of insulin; Z79.84 Long term (current) use of oral hypoglycemic drugs; Z79.899 Other long term (current) drug therapy
CPT/HCPCS: 96365; J2916

== ENCOUNTER → 2024-11-27 | Outpatient (CLI) | payer MEDICARE, OTHER ==
[~2024-11-27] MED LIST changes: +AMLO5 PO
[2024-11-27 18:01] LABS: Creatinine, Urine Random 23.4 mg/dL (27.00-270.00); Protein, Urine Random 22.7 mg/dL (0.0-11.9); Protein/Creat Ratio, Ur Random 1.0
== END ==
LOC: LAB 14:41 → LAB SHORT 14:41
PROVIDERS: Hospitalist
DX: N18.4 Chronic kidney disease, stage 4 (severe) (principal); D63.1 Anemia in chronic kidney disease
CPT/HCPCS: 82570; 84156

== ENCOUNTER 2024-12-02 02:25 | Inpatient (IN) | payer MEDICARE, OTHER ==
[~2024-12-02] VITALS: Ht 144.8 cm; Wt 74.8 kg
[~2024-12-02 02:25] MED LIST changes: -AMLO5 PO
[2024-12-02] MEDS ORDERED: Lidocaine 4% 1 Patch TOP ONE (02:50)
[2024-12-02 02:52] LABS: BASOPHILS ABSOLUTE AUTO 0.05 K/mm3 (0.00-0.23); BASOPHILS PERCENT AUTO 0 % (0-2); EOSINOPHILS ABSOLUTE AUTO 0.01 K/mm3 (0.00-0.68); EOSINOPHILS PERCENT AUTO 0 % (0-6); Hematocrit 29.3 % (33.0-51.0); Hemoglobin 10.1 g/dL (11.5-16.0); IMMATURE GRAN ABSOLUTE AUTO 0.38 K/mm3 (0.00-0.10); IMMATURE GRAN PERCENT AUTO 2 % (0-1); LYMPHOCYTES ABSOLUTE AUTO 0.77 K/mm3 (0.84-5.20); LYMPHOCYTES PERCENT AUTO 3 % (21-46); MONOCYTES ABSOLUTE AUTO 1.59 K/mm3 (0.16-1.47); MONOCYTES PERCENT AUTO 6 % (4-13); Mean Corpuscular HGB Conc 34.5 g/dL (31.5-36.5); Mean Corpuscular Volume 98 fL (80-100); NEUTROPHILS ABSOLUTE AUTO 23.22 K/mm3 (1.96-9.15); NEUTROPHILS PERCENT AUTO 89 % (41-73); NRBC ABSOLUTE 0.00 K/mm3 (0.00-0.02); NRBC Auto 0.0 /100 WBC (0.0-0.2); Platelet Count 192 K/mm3 (150-400); RDW Coefficient Variation 14.7 % (11.7-14.2); RDW Standard Deviation 52.5 fL (35.1-46.3)
[2024-12-02 03:06] LABS: Alanine Aminotransfer (ALT/SGP 20.0 U/L (12-78); Albumin, Blood 2.1 g/dL (3.4-5.0); Albumin/Globulin Ratio 0.5 (0.8-1.8); Anion Gap 12.0 mmol/L (3-11); Aspartate Aminotrans (AST/SGOT 17.0 U/L (12-37); Bilirubin, Total 0.7 mg/dL (0.1-1.0); Blood Urea Nitrogen 48.0 mg/dL (8-24); CO2, Blood 26.0 mmol/L (21-32); Calcium, Blood 7.8 mg/dL (8.5-10.1); Chloride, Blood 96.0 mmol/L (98-108); Creatinine, Blood 2.76 mg/dL (0.40-1.00); Globulin, Blood 4.5 g/dL (2.2-4.0); Glucose, Blood 257.0 mg/dL (70-99); Potassium, Blood 3.9 mmol/L (3.5-5.5); Sodium, Blood 130.0 mmol/L (136-145); Total Protein, Blood 6.6 g/dL (6.4-8.2)
[2024-12-02] MEDS ORDERED: LOPE2C PO (03:06)
[2024-12-02 04:09] LABS: Source, Urine Straight Cath
[2024-12-02 04:12] LABS: Bilirubin, Urine Neg (Neg); Glucose Qualitative, Urine Neg (Neg); Ketones, Urine Neg (Neg); Leukocyte Esterase, Urine 1+ (Neg); Protein, Urine 2+ (Neg); Specific Gravity, Urine 1.010 (1.003-1.022); Urobilinogen, Urine NORM (Normal)
[2024-12-02] MEDS ORDERED: NS 1,000 ML IV SCH (04:15)
[2024-12-02 04:17] LABS: Color, Urine Yellow (P-Yellow)
[2024-12-02 04:18] LABS: Red Blood Cells, Urine 0-2 /hpf (0-2)
[2024-12-02] MEDS ORDERED: CefTRIAXone Sodium 1,000 MG in NS 50 ML IV ONE (04:30)
[2024-12-02] MEDS ORDERED: Miconazole Nitrate 28 GM CREAM..G. TOP SCH (06:00)
[2024-12-02] MEDS ORDERED: Insulin Human Lispro 100 Units/ML 3ML Syringe SC SCH (07:30)
[2024-12-02 08:19] VITALS: BP 124/54
[2024-12-02] MEDS ORDERED: Heparin Sodium,Porcine 5,000 UNIT/0.5 ML SDV SC SCH (09:00)
[2024-12-02] MEDS ORDERED: Torsemide 20 MG TAB PO SCH (09:00)
[2024-12-02] MEDS ORDERED: Lactobacil 2-S.Thermo-Bifido 1 1 Cap PO SCH (09:00)
[2024-12-02 10:57] LABS: BASOPHILS ABSOLUTE AUTO 0.09 K/mm3 (0.00-0.23); BASOPHILS PERCENT AUTO 0 % (0-2); Hematocrit 31.0 % (33.0-51.0); Hemoglobin 10.6 g/dL (11.5-16.0); LYMPHOCYTES ABSOLUTE AUTO 0.60 K/mm3 (0.84-5.20); LYMPHOCYTES PERCENT AUTO 2 % (21-46); MONOCYTES ABSOLUTE AUTO 1.25 K/mm3 (0.16-1.47); MONOCYTES PERCENT AUTO 5 % (4-13); Mean Corpuscular HGB Conc 34.2 g/dL (31.5-36.5); Mean Corpuscular Volume 100 fL (80-100); NRBC ABSOLUTE 0.00 K/mm3 (0.00-0.02); NRBC Auto 0.0 /100 WBC (0.0-0.2); Platelet Count 202 K/mm3 (150-400); RDW Coefficient Variation 14.6 % (11.7-14.2); RDW Standard Deviation 52.9 fL (35.1-46.3)
[2024-12-02 11:00] LABS: EOSINOPHILS ABSOLUTE AUTO 0.03 K/mm3 (0.00-0.68); EOSINOPHILS PERCENT AUTO 0 % (0-6); IMMATURE GRAN ABSOLUTE AUTO 0.34 K/mm3 (0.00-0.10); IMMATURE GRAN PERCENT AUTO 1 % (0-1); NEUTROPHILS ABSOLUTE AUTO 25.67 K/mm3 (1.96-9.15); NEUTROPHILS PERCENT AUTO 92 % (41-73)
[2024-12-02 11:38] LABS: Alanine Aminotransfer (ALT/SGP 17.0 U/L (12-78); Albumin, Blood 2.2 g/dL (3.4-5.0); Albumin/Globulin Ratio 0.5 (0.8-1.8); Anion Gap 8.0 mmol/L (3-11); Aspartate Aminotrans (AST/SGOT 12.0 U/L (12-37); Bilirubin, Total 0.6 mg/dL (0.1-1.0); Blood Urea Nitrogen 41.0 mg/dL (8-24); CO2, Blood 27.0 mmol/L (21-32); Calcium, Blood 7.8 mg/dL (8.5-10.1); Chloride, Blood 95.0 mmol/L (98-108); Creatinine, Blood 2.38 mg/dL (0.40-1.00); Globulin, Blood 4.4 g/dL (2.2-4.0); Glucose, Blood 253.0 mg/dL (70-99); Potassium, Blood 3.6 mmol/L (3.5-5.5); Sodium, Blood 126.0 mmol/L (136-145); Total Protein, Blood 6.6 g/dL (6.4-8.2)
[2024-12-02] MEDS ORDERED: AMLO5 PO (12:05)
[2024-12-02] MEDS ORDERED: LOSA50 PO (12:07)
[2024-12-02] MEDS ORDERED: PANT40 PO (12:10)
[2024-12-02] MEDS ORDERED: Clindamycin 900mg in D5W 50ML 50 ML IV SCH (14:00)
[2024-12-02] MEDS ORDERED: NS 250 ML IV PRN (15:15)
[2024-12-02 16:18] VITALS: BP 104/45
--- NOTE | 2024-12-02 19:30 | NUR ---
SUMMARY- AAOX1-[address] X1 ASSIST TO BSC. PT ON 2L WHEN ADMITTED AND THEN WEANED TO RA THIS SHIFT. PAIN IN LEFT MEDIAL THIGH WELL CONTROLLED WITH EMAR PAIN MEDS.
[2024-12-02 20:10] VITALS: BP 95/45
[2024-12-02] MEDS ORDERED: Insulin Glargine-Yfgn 100 Unit/mL 3 ML SYR SC SCH (21:00)
[2024-12-03] VITALS (17 sets, daily range): BP systolic 68–125; BP diastolic 40–55
[2024-12-03 04:57] LABS: Hematocrit 25.6 % (33.0-51.0); Hemoglobin 8.7 g/dL (11.5-16.0); Mean Corpuscular HGB Conc 34.0 g/dL (31.5-36.5); Mean Corpuscular Volume 100 fL (80-100); NRBC ABSOLUTE 0.00 K/mm3 (0.00-0.02); NRBC Auto 0.0 /100 WBC (0.0-0.2); Platelet Count 186 K/mm3 (150-400); RDW Coefficient Variation 14.6 % (11.7-14.2); RDW Standard Deviation 53.4 fL (35.1-46.3)
[2024-12-03] MEDS ORDERED: CefTRIAXone Sodium 1,000 MG in NS 100 ML IV SCH (05:00)
--- NOTE | 2024-12-03 05:03 | NUR ---
SHIFT SUMMARY PATIENT A/O X2-3 THROUGHOUT SHIFT, ABLE TO MAKE NEEDS KNOWN. NO VOID THROUGHOUT SHIFT, LITTLE INPUT. BLADDER SCAN PERFORMED AT 0330, WITH 15ML SHOWING IN BLADDER. PT NPO SINCE MIDNIGHT. REMAINED BEDREST THROUGHOUT SHIFT. NO ACUTE CHANGES. LITTLE TO NO PAIN UNLESS R LEG IS MOVED/TOUCHED. REPOSITIONED Q2H. WILL CONTINUE TO MONITOR AND REPORT TO ONCOMING RN.
[2024-12-03 05:17] LABS: BAND PERCENT MAN 13 % (0-8); BASOPHILS ABSOLUTE MAN 0.00 K/mm3 (0.00-0.23); BASOPHILS PERCENT MAN 0 % (0-2); EOSINOPHILS ABSOLUTE MAN 0.00 K/mm3 (0.00-0.68); EOSINOPHILS PERCENT MAN 0 % (0-6); LYMPHOCYTES ABSOLUTE MAN 0.68 K/mm3 (0.84-5.20); LYMPHOCYTES PERCENT MAN 3 % (21-46); MONOCYTES ABSOLUTE MAN 0.68 K/mm3 (0.16-1.47); MONOCYTES PERCENT MAN 3 % (4-13); NEUTROPHILS ABSOLUTE MAN 21.54 K/mm3 (1.96-9.15); SEG NEUTROPHILS PERCENT MAN 81 % (41-73)
[2024-12-03 05:24] LABS: Anion Gap 10.0 mmol/L (3-11); Blood Urea Nitrogen 42.0 mg/dL (8-24); CO2, Blood 24.0 mmol/L (21-32); Calcium, Blood 7.3 mg/dL (8.5-10.1); Chloride, Blood 98.0 mmol/L (98-108); Creatinine, Blood 2.64 mg/dL (0.40-1.00); Glucose, Blood 132.0 mg/dL (70-99); Potassium, Blood 3.4 mmol/L (3.5-5.5); Sodium, Blood 129.0 mmol/L (136-145)
--- NOTE | 2024-12-03 06:53 | NUR ---
PT HAD INCONTINENT EPISODE PRIOR TO SHIFT CHANGE. ATTENDS, GOWN, AND BEDDING CHANGED.
[2024-12-03] MEDS ORDERED: FentaNYL Citrate 50 MCG/ML 2 ML Injection IV PRN (08:10)
[2024-12-03] MEDS ORDERED: NS 500 ML IV SCH (08:10)
[2024-12-03] MEDS ORDERED: NS 500 ML IV ONE (08:12)
[2024-12-03] MEDS ORDERED: Potassium Chloride 10 Meq Tablet SA PO ONE (09:00)
--- NOTE | 2024-12-03 10:00 | NUR ---
IN-HOUSE TRANSFER/NOTES: AT APROX. 0800 THIS NURSE WAS NOTIFIED BY THE LANDING GEAR MECHANIC OF THIS PATIENT BLOOD PRESSURE (78/44 ON ILA). UPON FURTHER INVESTIGATION, THIS PATIENT WAS ALSO NOTED TO HAVE LAB VALUES OUT OF NORMAL RANGES. DR. MCADAMS WAS CONTACTED AND THIS NURSE WAS TOLD TO RUN A 500ML NS BOLUS, FOLLOWED BY LR @100. DIRECTED TO FOLLOW-UP NEEDED. DURING THIS TIME THIS NURSE ASCULTATED THIS PATIENTS HEART AND LUNGS. S1, S2 HEARD, AND LUNGS NOTED TO HAVE MILD CRACKLES AT THE BASES. 500ML BOLUS ADMINISTERED PER ORDER WITH LITTLE IMPROVEMENT. MANUAL BLOOD PRESSURE WAS TAKEN AND WAS NOTED TO BE 68/42 ON JAQUELINE. APROX. @0900 DR. MCADAMS AT PATIENT BEDSIDE FOR ASSESSMENT. PATIENT NOTED TO STILL BE HYPOTENSIVE. DR. MCADAMS TO PLACE ORDERS FOR MIDODRINE AND TRANSFER TO PCU 19.
--- NOTE | 2024-12-03 10:30 | NUR ---
PT ARRIVED ON UNIT @ ~1000. AOX3, COOPERATIVE, ABLE TO MAKE NEEDS KNOWN. DENIES ACUTE PAIN OUTSIDE OF JUST GENERALLY FEELING CRUMMY. VITALS STABLE OUTSIDE OF SOFT BP, MOST RECENT MEASUREMENT 91/47 WITH MAP OF 60. PER REPORT, PT GIVEN MIDODRINE PRIOR TO TRANSFER. FLUIDS RUNNING @ 100mls/hr AT THIS TIME. CYCLING BP Q 30 MINUTES FOR TIME BEING. BEDREST AT THIS TIME D/T WEAKNESS/BP CONCERNS. PT EDUCATED WATER SERVICE SUPERVISOR LIGHT USE AND ENCOURAGED TO NOTIFY STAFF OF ANY NEEDS THAT ARISE. RESTING IN BED AT THIS TIME. BED LOCKED IN LOWEST POSITION. CALL LIGHT IN REACH.
--- NOTE | 2024-12-03 10:58 | NUR ---
PATIENT TRANSFERED TO PCU 19. BEDSIDE REPORT GIVEN TO NEETU COELHO.
--- NOTE | 2024-12-03 12:49 | NUR ---
PT BP HAS CONSISTENTLY BEEN LOW SINCE ARRIVAL TO UNIT. MAP HAS REMAINED @~59 GIVE OR TAKE WITH ONE MEASURE MORE RECENTLY BEING CLOSER TO 50. PT FEELS ALRIGHT, REPORTING FEELING BETTER THAN SHE DID WHEN SHE FIRST ARRIVED ON UNIT. VITALS OTHERWISE STABLE. CALLED TO SPEAK W/ DR. MCADAMS WHO SHARED CONCERN ABOUT OVERDOING IT WITH THE FLUIDS AND REPORTED THAT SHE WOULD ADJUST FREQUENCY OF MIDODRINE. DIRECTED TO CONTINUE TO MONITOR FOR TIME BEING.
[2024-12-03] MEDS ORDERED: Heparin Sodium,Porcine 5,000 UNIT/0.5 ML SDV SC SCH (16:00)
--- NOTE | 2024-12-03 18:06 | NUR ---
SHIFT SUMMARY. SHIFT HAS GONE WELL OVERALL. PT AOX2-3, COOPERATIVE, ABLE TO MAKE NEEDS KNOWN, USES CALL LIGHT APPROPRIATELY. PT HAS DENIED PAIN THROUGHOUT SHIFT THUS FAR OUTSIDE OF THAT ASSOCIATED WITH REPOSITIONING. Q2 HOUR TURNS. PUT IN COLON RECENTLY D/T RETENTION. PT WAS ASSISTED TO BSC TO VOID BUT WAS ONLY ABLE TO CLEAR 200 MLS, POST VOID BLADDER SCAN REVEALED VOLUME OF 400mls. CALLED ABBE WHO DIRECTED TO LEAVE COLON IN PLACE FOR TIME BEING. BP HAS BEEN BETTER THIS AFTERNOON WITH MAP REMAINING >65 FOR SEVERAL HOURS NOW. BED LOCKED IN LOWEST POSITION. CALL LIGHT IN REACH.
[2024-12-03 23:05] LABS: ANTI-NUCLEAR AB ANA,IGG ELISA None Detected (None Detected)
[2024-12-04] VITALS (12 sets, daily range): BP systolic 93–124; BP diastolic 42–51
[2024-12-04 03:36] LABS: BASOPHILS ABSOLUTE AUTO 0.06 K/mm3 (0.00-0.23); BASOPHILS PERCENT AUTO 0 % (0-2); EOSINOPHILS ABSOLUTE AUTO 0.24 K/mm3 (0.00-0.68); EOSINOPHILS PERCENT AUTO 1 % (0-6); Hematocrit 24.3 % (33.0-51.0); Hemoglobin 8.2 g/dL (11.5-16.0); IMMATURE GRAN ABSOLUTE AUTO 0.93 K/mm3 (0.00-0.10); IMMATURE GRAN PERCENT AUTO 4 % (0-1); LYMPHOCYTES ABSOLUTE AUTO 1.15 K/mm3 (0.84-5.20); LYMPHOCYTES PERCENT AUTO 5 % (21-46); MONOCYTES ABSOLUTE AUTO 0.88 K/mm3 (0.16-1.47); MONOCYTES PERCENT AUTO 4 % (4-13); Mean Corpuscular HGB Conc 33.7 g/dL (31.5-36.5); Mean Corpuscular Volume 99 fL (80-100); NEUTROPHILS ABSOLUTE AUTO 19.51 K/mm3 (1.96-9.15); NEUTROPHILS PERCENT AUTO 86 % (41-73); NRBC ABSOLUTE 0.00 K/mm3 (0.00-0.02); NRBC Auto 0.0 /100 WBC (0.0-0.2); Platelet Count 207 K/mm3 (150-400); RDW Coefficient Variation 14.4 % (11.7-14.2); RDW Standard Deviation 52.2 fL (35.1-46.3)
[2024-12-04 04:02] LABS: Anion Gap 10.0 mmol/L (3-11); Blood Urea Nitrogen 45.0 mg/dL (8-24); CO2, Blood 24.0 mmol/L (21-32); Calcium, Blood 7.0 mg/dL (8.5-10.1); Chloride, Blood 101.0 mmol/L (98-108); Creatinine, Blood 2.36 mg/dL (0.40-1.00); Glucose, Blood 74.0 mg/dL (70-99); Potassium, Blood 3.4 mmol/L (3.5-5.5); Sodium, Blood 132.0 mmol/L (136-145)
--- NOTE | 2024-12-04 04:09 | NUR ---
SHIFT SUMMARY PATIENT IS A&OX2-3 WITH SOME CONFUSION. COOPERATIVE WITH CARE, AND WILL CALL OUT FOR HELP. PATIENT REPOSITIONED Q2 HOURS. SMALL OPENING TO RIGHT BUTTOCKS WITH DRAINAGE-BANDAGE PLACED. PATIENT C/O PAIN X1-PRN PAIN MEDICATION GIVEN-SEE ORDERS/EMAR. PATIENTS BLOOD PRESSURE SOFT AT BEGINNING OF SHIFT BUT MAP >65, LATER IN THE SHIFT PATIENTS BLOOD PRESSURE DROPPED WITH MAP IN THE HIGH 50'S TO LOW 60'S-PATIENT ASYMPTOMATIC. PATIENT TAKES PILLS WHOLE WITH WATER W/O DIFFICULTY. PATIENT HAS COLON CATHETER IN PLACE THAT IS PATENT AND DRAINING TO GRAVITY, NO BM THIS SHIFT. PATIENT HAS BEEN NPO SINCE MIDNIGHT FOR POSSIBLE I&D TODAY 12/04/24. BED IS LOCKED IN THE LOWEST POSITION WITH CALL LIGHT IN REACH. CARE IS ONGOING.
[2024-12-04] MEDS ORDERED: D5W-1/2NS KCl 20mEq 1,000 ML IV SCH (08:10)
--- NOTE | 2024-12-04 17:45 | NUR ---
SHIFT SUMMARY. SHIFT HAS GONE WELL OVERALL. PT AOX2-3, COOPERATIVE, ABLE TO MAKE NEEDS KNOWN. VITALS HAVE BEEN STABLE OUTSIDE OF CONTINUING TO HAVE SOFT BP, HAVE IMPROVED OVER THE COURSE OF THIS AFTERNOON. PAIN HAS BEEN ADEQUATELY MANAGED VIA REPOSITIONING OUTSIDE OF ONE INSTANCE THIS AFTERNOON AFTER ULTRASOUND WHERE PT REQUIRED PAIN MEDICATION TO EASE PAIN. SINCE THAT TIME HAS BEEN COMFORTABLE IN BED. DR. HIGUERA BY THIS MORNING, PT OKAY TO EAT TODAY BUT WILL MAKE NPO @ 0000 IN CASE OF SURGICAL INTREVENTION TOMORROW. Q2 HOUR REPOSITIONING. BED LOCKED IN LOWEST POSITION. CALL LIGHT LEFT WITHIN REACH.
[2024-12-05 03:35] VITALS: BP 105/52
[2024-12-05 03:52] LABS: Hematocrit 24.5 % (33.0-51.0); Hemoglobin 8.4 g/dL (11.5-16.0); Mean Corpuscular HGB Conc 34.3 g/dL (31.5-36.5); Mean Corpuscular Volume 100 fL (80-100); NRBC ABSOLUTE 0.00 K/mm3 (0.00-0.02); NRBC Auto 0.0 /100 WBC (0.0-0.2); Platelet Count 250 K/mm3 (150-400); RDW Coefficient Variation 14.3 % (11.7-14.2); RDW Standard Deviation 52.3 fL (35.1-46.3)
[2024-12-05 04:15] LABS: BAND PERCENT MAN 5 % (0-8); BASOPHILS ABSOLUTE MAN 0.00 K/mm3 (0.00-0.23); BASOPHILS PERCENT MAN 0 % (0-2); EOSINOPHILS ABSOLUTE MAN 0.17 K/mm3 (0.00-0.68); EOSINOPHILS PERCENT MAN 1 % (0-6); LYMPHOCYTES ABSOLUTE MAN 0.70 K/mm3 (0.84-5.20); LYMPHOCYTES PERCENT MAN 4 % (21-46); METAMYELOCYTE ABSOLUTE MAN 0.17 K/mm3 (0.00-0.00); METAMYELOCYTE PERCENT MAN 1 % (0-0); MONOCYTES ABSOLUTE MAN 0.70 K/mm3 (0.16-1.47); MONOCYTES PERCENT MAN 4 % (4-13); NEUTROPHILS ABSOLUTE MAN 15.86 K/mm3 (1.96-9.15); SEG NEUTROPHILS PERCENT MAN 85 % (41-73)
[2024-12-05 04:20] LABS: Alanine Aminotransfer (ALT/SGP 15.0 U/L (12-78); Albumin, Blood 1.5 g/dL (3.4-5.0); Albumin/Globulin Ratio 0.4 (0.8-1.8); Anion Gap 11.0 mmol/L (3-11); Aspartate Aminotrans (AST/SGOT 21.0 U/L (12-37); Bilirubin, Total 0.2 mg/dL (0.1-1.0); Blood Urea Nitrogen 37.0 mg/dL (8-24); CO2, Blood 21.0 mmol/L (21-32); Calcium, Blood 6.8 mg/dL (8.5-10.1); Chloride, Blood 102.0 mmol/L (98-108); Creatinine, Blood 2.1 mg/dL (0.40-1.00); Globulin, Blood 4.1 g/dL (2.2-4.0); Glucose, Blood 149.0 mg/dL (70-99); Potassium, Blood 3.9 mmol/L (3.5-5.5); Sodium, Blood 130.0 mmol/L (136-145); Total Protein, Blood 5.6 g/dL (6.4-8.2)
--- NOTE | 2024-12-05 04:53 | NUR ---
SHIFT SUMMARY: PATIENT IS A&OX3, DISORIENTED TO TIME BUT IS EASILY REORIENTED. VITALS ARE STABLE AND IS ON ROOM AIR WITH >90% OXYGEN SATS. TELE SHOWS SINUS RHYTHMIA WITH HR IN THE 60'S BPM. PAIN IS MANAGED WITH REPOSITIONING AND PRN OXY PO PER JUL. COLON DRAINING TO GRAVITY WITH YELLOW URINE OUTPUT. Q2H TURNS - PATIENT REFUSED REPOSITIONING A FEW TIMES DURING THE SHIFT BUT DOES REQUEST IF NEEDING TO BE REPOSITIONED. D5% WITH 1/2 NS WITH KCL FLUIDS RUNNING THROUGHOUT SHIFT AT 100ML/HR. PATIENT IS NPO FOR POSSIBLE SURGERY TODAY. BED ALARM ON A PRECAUTION. CALL LIGHT WITHIN REACH.
[2024-12-05 08:06] VITALS: BP 106/44
[2024-12-05 12:31] VITALS: BP 125/51
[2024-12-05 16:48] VITALS: BP 116/43
--- NOTE | 2024-12-05 18:25 | NUR ---
SHIFT SUMMARY PT A/OX3, FORGETFUL. PT CAN ANSWER MOST ORIENTATION QUESTIONS APPROPIATE BUT WILL FORGET OTHERS THAT SHE HAS PREVIOUSLY ANSWERED. PT ABLE TO EXPRESS NEEDS WHEN STAFF IS IN THE ROOM. PT VSS THROGHOUT SHIFT WITH O2 SATS IN DEYANIRA 90'S ON RA. NO REPORT OF CCHEST PAIN/PRESSURE THROUGHOUT SHIFT. NO REPORT OF SOB/DYSPNEA THROUGHOUT SHIFT. PT HEARD CRYING IN ROOM AFTER BEING REPOSITIONED IN BED. PT REFUSED PO PAIN MEDS FOR MOST OF SHIFT. PAIN SLIGHTLY BETTER MANAGED OFTER PT AGREEING TO TAKE PO PAIN MED. PT STARTED ON SOLUMEDROL, 4 DOSES TOTAL.
[2024-12-05] MEDS ORDERED: Zinc Oxide Ointment 30 GM TOP SCH (18:30)
[2024-12-05 19:32] VITALS: BP 121/45
[2024-12-05 23:46] VITALS: BP 110/47
[2024-12-06 03:16] VITALS: BP 119/52
[2024-12-06 03:27] LABS: Hematocrit 27.2 % (33.0-51.0); Hemoglobin 9.3 g/dL (11.5-16.0); Mean Corpuscular HGB Conc 34.2 g/dL (31.5-36.5); Mean Corpuscular Volume 99 fL (80-100); NRBC ABSOLUTE 0.00 K/mm3 (0.00-0.02); NRBC Auto 0.0 /100 WBC (0.0-0.2); Platelet Count 274 K/mm3 (150-400); RDW Coefficient Variation 14.1 % (11.7-14.2); RDW Standard Deviation 50.6 fL (35.1-46.3)
[2024-12-06 03:46] LABS: Alanine Aminotransfer (ALT/SGP 15.0 U/L (12-78); Albumin, Blood 1.7 g/dL (3.4-5.0); Albumin/Globulin Ratio 0.4 (0.8-1.8); Anion Gap 12.0 mmol/L (3-11); Aspartate Aminotrans (AST/SGOT 20.0 U/L (12-37); Bilirubin, Total 0.2 mg/dL (0.1-1.0); Blood Urea Nitrogen 31.0 mg/dL (8-24); CO2, Blood 20.0 mmol/L (21-32); Calcium, Blood 7.3 mg/dL (8.5-10.1); Chloride, Blood 104.0 mmol/L (98-108); Creatinine, Blood 1.85 mg/dL (0.40-1.00); Globulin, Blood 4.4 g/dL (2.2-4.0); Glucose, Blood 179.0 mg/dL (70-99); Potassium, Blood 4.5 mmol/L (3.5-5.5); Sodium, Blood 131.0 mmol/L (136-145); Total Protein, Blood 6.1 g/dL (6.4-8.2)
[2024-12-06 04:11] LABS: BAND PERCENT MAN 4 % (0-8); BASOPHILS ABSOLUTE MAN 0.00 K/mm3 (0.00-0.23); BASOPHILS PERCENT MAN 0 % (0-2); EOSINOPHILS ABSOLUTE MAN 0.00 K/mm3 (0.00-0.68); EOSINOPHILS PERCENT MAN 0 % (0-6); LYMPHOCYTES ABSOLUTE MAN 0.42 K/mm3 (0.84-5.20); LYMPHOCYTES PERCENT MAN 3 % (21-46); METAMYELOCYTE ABSOLUTE MAN 0.28 K/mm3 (0.00-0.00); METAMYELOCYTE PERCENT MAN 2 % (0-0); MONOCYTES ABSOLUTE MAN 0.28 K/mm3 (0.16-1.47); MONOCYTES PERCENT MAN 2 % (4-13); MYELOCYTE ABSOLUTE MAN 0.14 K/mm3 (0.00-0.00); MYELOCYTE PERCENT MAN 1 % (0-0); NEUTROPHILS ABSOLUTE MAN 13.05 K/mm3 (1.96-9.15); SEG NEUTROPHILS PERCENT MAN 88 % (41-73)
--- NOTE | 2024-12-06 04:49 | NUR ---
SHIFT SUMMARY: PATIENT IS A&OX2-3 BUT IS EASILY REORIENTED. VITALS ARE STABLE AND IS ON ROOM AIR WITH >90% OXYGEN SATS. PATIENT REPORTS PAIN IN HER RIGHT LEG THROUGHOUT SHIFT, BUT HAS BEEN MANAGED WITH REPOSITIONING HER OR PO OXY PER MAR. Q2H TURNS. COLON DRAINING TO GRAVITY WITH NO KINKS IN TUBING AND YELLOW URINE OUTPUT. PATIENT HAD A BM DURING THE SHIFT AND HAD ATTENDS/LINENS CHANGED. BED ALARM ON A PRECAUTION WITH CALL LIGHT IN REACH.
[2024-12-06 07:58] VITALS: BP 114/64
[2024-12-06 16:06] VITALS: BP 137/47
--- NOTE | 2024-12-06 17:36 | NUR ---
ASSUMED CARE AT 1600. REPORT RECEIVED FROM MARINA COELHO. NO ACUTE CHANGE OF THIS TIME. PT WAS TURNED AND REPOSITIONED NOTICED SOME PUS COMING OUT OF WOUND IN THE RIGHT BUTTOCK, WOUND WAS DRESSED, CULTURE SENT TO LAB. CLEAN ATTENDS IN PLACE. PT FLOATED IN PILLOWS. VITALS HAS BEEN STABLE. WILL REPORT TO ONCOMING SHIFT
[2024-12-06 20:19] VITALS: BP 153/59
[2024-12-07 04:07] LABS: Hematocrit 25.9 % (33.0-51.0); Hemoglobin 8.7 g/dL (11.5-16.0); Mean Corpuscular HGB Conc 33.6 g/dL (31.5-36.5); Mean Corpuscular Volume 99 fL (80-100); NRBC ABSOLUTE 0.03 K/mm3 (0.00-0.02); NRBC Auto 0.2 /100 WBC (0.0-0.2); Platelet Count 342 K/mm3 (150-400); RDW Coefficient Variation 14.3 % (11.7-14.2); RDW Standard Deviation 51.3 fL (35.1-46.3)
[2024-12-07 04:28] LABS: Alanine Aminotransfer (ALT/SGP 21.0 U/L (12-78); Albumin, Blood 1.9 g/dL (3.4-5.0); Albumin/Globulin Ratio 0.4 (0.8-1.8); Anion Gap 13.0 mmol/L (3-11); Aspartate Aminotrans (AST/SGOT 27.0 U/L (12-37); Bilirubin, Total 0.2 mg/dL (0.1-1.0); Blood Urea Nitrogen 34.0 mg/dL (8-24); CO2, Blood 20.0 mmol/L (21-32); Calcium, Blood 7.4 mg/dL (8.5-10.1); Chloride, Blood 105.0 mmol/L (98-108); Creatinine, Blood 1.68 mg/dL (0.40-1.00); Globulin, Blood 4.3 g/dL (2.2-4.0); Glucose, Blood 191.0 mg/dL (70-99); Potassium, Blood 4.6 mmol/L (3.5-5.5); Sodium, Blood 133.0 mmol/L (136-145); Total Protein, Blood 6.2 g/dL (6.4-8.2)
[2024-12-07 04:50] LABS: BAND PERCENT MAN 6 % (0-8); BASOPHILS ABSOLUTE MAN 0.00 K/mm3 (0.00-0.23); BASOPHILS PERCENT MAN 0 % (0-2); EOSINOPHILS ABSOLUTE MAN 0.00 K/mm3 (0.00-0.68); EOSINOPHILS PERCENT MAN 0 % (0-6); LYMPHOCYTES ABSOLUTE MAN 0.57 K/mm3 (0.84-5.20); LYMPHOCYTES PERCENT MAN 4 % (21-46); METAMYELOCYTE ABSOLUTE MAN 1.15 K/mm3 (0.00-0.00); METAMYELOCYTE PERCENT MAN 8 % (0-0); MONOCYTES ABSOLUTE MAN 0.57 K/mm3 (0.16-1.47); MONOCYTES PERCENT MAN 4 % (4-13); MYELOCYTE ABSOLUTE MAN 0.57 K/mm3 (0.00-0.00); MYELOCYTE PERCENT MAN 4 % (0-0); NEUTROPHILS ABSOLUTE MAN 11.55 K/mm3 (1.96-9.15); SEG NEUTROPHILS PERCENT MAN 74 % (41-73)
[2024-12-07 04:59] VITALS: BP 127/50
[2024-12-07 08:03] VITALS: BP 124/51
[2024-12-07] MEDS ORDERED: Vancomycin (Pharmacy Consult) IV SCH (08:10)
--- NOTE | 2024-12-07 12:29 | NUR ---
PT TRANSFERRED TO 347 REPORT GIVEN TO OLGA COELHO. ALL BELONGINGS SENT WITH THE PT. DAUGHTER RIGO CALLED AND MADE AWARE OF THE TRANSFER.
[2024-12-07 15:00] VITALS: BP 125/53
--- NOTE | 2024-12-07 18:31 | NUR ---
PATIENT PULLED COLON THIS SHIFT, WAS REPLACED. HAD BM. WAS TRANSFERED TO MEDICAL FLOOR. A/O X 2-3. WORKED WITH PT, WAS UNABLE TO STAND.
[2024-12-07 20:02] VITALS: BP 132/48
[2024-12-08 03:23] VITALS: BP 144/55
[2024-12-08 05:46] LABS: Hematocrit 25.3 % (33.0-51.0); Hemoglobin 8.2 g/dL (11.5-16.0); Mean Corpuscular HGB Conc 32.4 g/dL (31.5-36.5); Mean Corpuscular Volume 102 fL (80-100); NRBC ABSOLUTE 0.04 K/mm3 (0.00-0.02); NRBC Auto 0.3 /100 WBC (0.0-0.2); Platelet Count 269 K/mm3 (150-400); RDW Coefficient Variation 14.3 % (11.7-14.2); RDW Standard Deviation 53.1 fL (35.1-46.3)
[2024-12-08 06:07] LABS: Alanine Aminotransfer (ALT/SGP 23 U/L (12-78); Albumin, Blood 1.8 g/dL (3.4-5.0); Albumin/Globulin Ratio 0.5 (0.8-1.8); Anion Gap 9 mmol/L (3-11); Aspartate Aminotrans (AST/SGOT 25 U/L (12-37); BAND PERCENT MAN 5 % (0-8); BASOPHILS ABSOLUTE MAN 0.00 K/mm3 (0.00-0.23); BASOPHILS PERCENT MAN 0 % (0-2); Bilirubin, Total 0.3 mg/dL (0.1-1.0); Blood Urea Nitrogen 34 mg/dL (8-24); CO2, Blood 21 mmol/L (21-32); Calcium, Blood 7.5 mg/dL (8.5-10.1); Chloride, Blood 111 mmol/L (98-108); Creatinine, Blood 1.46 mg/dL (0.40-1.00); EOSINOPHILS ABSOLUTE MAN 0.12 K/mm3 (0.00-0.68); EOSINOPHILS PERCENT MAN 1 % (0-6); Globulin, Blood 3.7 g/dL (2.2-4.0); Glucose, Blood 128 mg/dL (70-99); LYMPHOCYTES ABSOLUTE MAN 1.10 K/mm3 (0.84-5.20); LYMPHOCYTES PERCENT MAN 9 % (21-46); METAMYELOCYTE ABSOLUTE MAN 0.73 K/mm3 (0.00-0.00); METAMYELOCYTE PERCENT MAN 6 % (0-0); MONOCYTES ABSOLUTE MAN 0.85 K/mm3 (0.16-1.47); MONOCYTES PERCENT MAN 7 % (4-13); MYELOCYTE ABSOLUTE MAN 0.12 K/mm3 (0.00-0.00); MYELOCYTE PERCENT MAN 1 % (0-0); NEUTROPHILS ABSOLUTE MAN 9.33 K/mm3 (1.96-9.15); Potassium, Blood 4.0 mmol/L (3.5-5.5); SEG NEUTROPHILS PERCENT MAN 71 % (41-73); Sodium, Blood 137 mmol/L (136-145); Total Protein, Blood 5.5 g/dL (6.4-8.2); Vancomycin, Random 16.8 ug/mL
[2024-12-08 07:13] VITALS: BP 132/53
--- NOTE | 2024-12-08 09:07 | NUR ---
BATTERY FILLER SUMMARY PT A&OX4, VSS, EXCEPT ELEVATED BP. PT HAS BEEN COOPERATIVE AND PLEASANT. COMPLIANT WITH MEDICATIONS AND ASSESSMENTS. RECEPTIVE TO EDUCATION PROVIDED. REMAINS ON BEDREST. COLON REMAINS IN PLACE, DRAINING CLEAR, YELLOW URINE TO GRAVITY. PT IS FORGETFUL AT TIMES. NEEDS REMINDERS ON HOW TO USE CALL LIGHT AND TV CONTROLS. PT HAS BEEN ASLEEP FOR MOST OF THE SHIFT. CHEST RISE AND RESPIRATIONS NOTED. BED RAILS UP X 2, BED IN LOWEST POSITION, BED WHEELS LOCKED, PERSONAL BELONGINGS AND CALL LIGHT WITHIN REACH FOR SAFETY.
[2024-12-08 16:20] VITALS: BP 141/57
--- NOTE | 2024-12-08 17:22 | NUR ---
SHIFT SUMMARY NO ACUTE CHANGES. A/Ox4. ABLE TO MAKE NEEDS KNOWN WITH OCCASIONAL FORGETFULNESS AND CONFUSION. WOUND CARE TO INNER THIGHS AND COCCYX COMPLETED PER ORDERS. PT DENIES PAIN T/O SHIFT. PT DENIES DISTRESS OR CONCERNS. POOR INTAKE DESPITE ENCOURAGEMENT AND OFFERING SNACKS. COLON REMAINS PATENT AND DRAINING CLEAR YELLOW URINE. SOFT BM TODAY. PT CURRENTLY SLEEPING PEACEFULLY IN HOSPITAL BED WITH BED IN LOWEST POSITION AND CALL LIGHT WITHIN REACH.
[2024-12-08 19:54] VITALS: BP 143/62
[2024-12-09 03:11] VITALS: BP 137/54
[2024-12-09 06:29] LABS: Hematocrit 23.8 % (33.0-51.0); Hemoglobin 7.8 g/dL (11.5-16.0); Mean Corpuscular HGB Conc 32.8 g/dL (31.5-36.5); Mean Corpuscular Volume 103 fL (80-100); NRBC ABSOLUTE 0.13 K/mm3 (0.00-0.02); NRBC Auto 1.1 /100 WBC (0.0-0.2); Platelet Count 287 K/mm3 (150-400); RDW Coefficient Variation 14.6 % (11.7-14.2); RDW Standard Deviation 54.6 fL (35.1-46.3)
--- NOTE | 2024-12-09 06:41 | NUR ---
Shift Summary No acute changes. Claros catheter in place, patent. One incontinent BM. No c/o pain or nausea. Pt slept well t/o most of the night. Pt AOx4, cooperative with care.
[2024-12-09 07:03] LABS: Anion Gap 9 mmol/L (3-11); Blood Urea Nitrogen 31 mg/dL (8-24); CO2, Blood 21 mmol/L (21-32); Calcium, Blood 7.4 mg/dL (8.5-10.1); Chloride, Blood 114 mmol/L (98-108); Creatinine, Blood 1.36 mg/dL (0.40-1.00); Glucose, Blood 85 mg/dL (70-99); Potassium, Blood 4.0 mmol/L (3.5-5.5); Sodium, Blood 140 mmol/L (136-145); Vancomycin, Random 21.8 ug/mL
[2024-12-09 07:27] LABS: BAND PERCENT MAN 13 % (0-8); BASOPHILS ABSOLUTE MAN 0.00 K/mm3 (0.00-0.23); BASOPHILS PERCENT MAN 0 % (0-2); EOSINOPHILS ABSOLUTE MAN 0.00 K/mm3 (0.00-0.68); EOSINOPHILS PERCENT MAN 0 % (0-6); LYMPHOCYTES ABSOLUTE MAN 1.13 K/mm3 (0.84-5.20); LYMPHOCYTES PERCENT MAN 10 % (21-46); METAMYELOCYTE ABSOLUTE MAN 0.79 K/mm3 (0.00-0.00); METAMYELOCYTE PERCENT MAN 7 % (0-0); MONOCYTES ABSOLUTE MAN 0.45 K/mm3 (0.16-1.47); MONOCYTES PERCENT MAN 4 % (4-13); MYELOCYTE ABSOLUTE MAN 0.34 K/mm3 (0.00-0.00); MYELOCYTE PERCENT MAN 3 % (0-0); NEUTROPHILS ABSOLUTE MAN 8.61 K/mm3 (1.96-9.15); SEG NEUTROPHILS PERCENT MAN 63 % (41-73)
[2024-12-09 07:37] VITALS: BP 133/54
--- NOTE | 2024-12-09 15:53 | NUR ---
SHIFT SUMMARY NO ACUTE CHANGES. A/Ox4 WITH SOME FORGETFULNESS. FULL CODE. PT DENIES ANY CONCERNS OR DISTRESS, PT DENIES PAIN. ABLE TO MAKE NEEDS KNOWN. COLON CATHETER PATENT AND DRAINING CLEAR YELLOW URINE. CATHETER CARE COMPLETED TODAY BY RN. FAIR APPETITE. PT WILL CONTINUE ON IV ANTIBIOTICS. PT CURRENTLY RESTING IN RECLINER WITH CHAIR ALARM ON AND CALL LIGHT WITHIN REACH.
[2024-12-09 19:42] VITALS: BP 163/66
[2024-12-09 21:11] LABS: Vancomycin, Random 19.3 ug/mL
[2024-12-10 04:09] VITALS: BP 135/54
[2024-12-10 05:56] LABS: Hematocrit 24.7 % (33.0-51.0); Hemoglobin 8.0 g/dL (11.5-16.0); Mean Corpuscular HGB Conc 32.4 g/dL (31.5-36.5); Mean Corpuscular Volume 103 fL (80-100); NRBC ABSOLUTE 0.04 K/mm3 (0.00-0.02); NRBC Auto 0.3 /100 WBC (0.0-0.2); Platelet Count 303 K/mm3 (150-400); RDW Coefficient Variation 14.5 % (11.7-14.2); RDW Standard Deviation 54.4 fL (35.1-46.3)
[2024-12-10 06:05] LABS: HSV SUBTYPE SOURCE PERINEAL AREA
[2024-12-10 06:16] LABS: Alanine Aminotransfer (ALT/SGP 21.0 U/L (12-78); Albumin, Blood 1.9 g/dL (3.4-5.0); Albumin/Globulin Ratio 0.5 (0.8-1.8); Anion Gap 7.0 mmol/L (3-11); Aspartate Aminotrans (AST/SGOT 22.0 U/L (12-37); Bilirubin, Total 0.2 mg/dL (0.1-1.0); Blood Urea Nitrogen 30.0 mg/dL (8-24); CO2, Blood 22.0 mmol/L (21-32); Calcium, Blood 7.9 mg/dL (8.5-10.1); Chloride, Blood 115.0 mmol/L (98-108); Creatinine, Blood 1.21 mg/dL (0.40-1.00); Globulin, Blood 3.5 g/dL (2.2-4.0); Glucose, Blood 84.0 mg/dL (70-99); Potassium, Blood 4.0 mmol/L (3.5-5.5); Sodium, Blood 140.0 mmol/L (136-145); Total Protein, Blood 5.4 g/dL (6.4-8.2)
[2024-12-10 06:19] LABS: BAND PERCENT MAN 8 % (0-8); BASOPHILS ABSOLUTE MAN 0.00 K/mm3 (0.00-0.23); BASOPHILS PERCENT MAN 0 % (0-2); EOSINOPHILS ABSOLUTE MAN 0.11 K/mm3 (0.00-0.68); EOSINOPHILS PERCENT MAN 1 % (0-6); LYMPHOCYTES ABSOLUTE MAN 1.07 K/mm3 (0.84-5.20); LYMPHOCYTES PERCENT MAN 9 % (21-46); METAMYELOCYTE ABSOLUTE MAN 0.95 K/mm3 (0.00-0.00); METAMYELOCYTE PERCENT MAN 8 % (0-0); MONOCYTES ABSOLUTE MAN 0.71 K/mm3 (0.16-1.47); MONOCYTES PERCENT MAN 6 % (4-13); MYELOCYTE ABSOLUTE MAN 0.23 K/mm3 (0.00-0.00); MYELOCYTE PERCENT MAN 2 % (0-0); NEUTROPHILS ABSOLUTE MAN 8.86 K/mm3 (1.96-9.15); SEG NEUTROPHILS PERCENT MAN 66 % (41-73)
--- NOTE | 2024-12-10 06:30 | NUR ---
Shift Summary No acute changes. Pt had 2 incontinent BMs. Claros cath in place, patent. No c/o of pain or nausea. Rcving IV ABX. Pt ambulated from the chair to the bed at the start of the shift and slept well t/o most of the night.
[2024-12-10 08:16] VITALS: BP 141/60
--- NOTE | 2024-12-10 14:28 | NUR ---
PLAN TO D/C BACK TO [facility]. OCCUPATIONAL THERAPY AIDES TEACHER FROM FACILITY GAVE OK FOR DISCHARGE.
[2024-12-10 15:30] VITALS: BP 152/60
[2024-12-10] MEDS ORDERED: DOXY100 PO (16:06)
--- NOTE | 2024-12-10 17:48 | NUR ---
PT DISCHARGED BACK TO [facility]. SPOKE WITH DYE CAN OPERATOR AT FACILITY. PER DR. LENNON, OK TO GIVE FIRST DOSE OF DOXY INPATIENT BEFORE DISCHARGE. PER DR. LENNON, PLEASE D/C COLON PRIOR TO DISCHARGE
== END 2024-12-10 17:02 | disposition home health service (06) | DRG 871 ==
LOC: ER 02:25 → PCU 02:26 → MEDS 02:26 → PCU 12-03 09:47 → MEDS 12-07 12:10
PROVIDERS: Emergency Medicine; Family Medicine; Internal Medicine; ADMIT Internal Medicine
PROC: 3E03329 Introduction of Other Anti-infective into Peripheral Vein, Percutaneous Approach (ICD-10-PCS; principal; 2024-12-02)
PROC: 0T9B70Z Drainage of Bladder with Drainage Device, Via Natural or Artificial Opening (ICD-10-PCS; 2024-12-03)
DX: A41.02 Sepsis due to Methicillin resistant Staphylococcus aureus (principal); N17.0 Acute kidney failure with tubular necrosis; L03.115 Cellulitis of right lower limb; N18.4 Chronic kidney disease, stage 4 (severe); E87.1 Hypo-osmolality and hyponatremia; L02.415 Cutaneous abscess of right lower limb; I50.32 Chronic diastolic (congestive) heart failure; R33.9 Retention of urine, unspecified; D63.1 Anemia in chronic kidney disease; R65.20 Severe sepsis without septic shock; E83.51 Hypocalcemia; E11.42 Type 2 diabetes mellitus with diabetic polyneuropathy; K21.9 Gastro-esophageal reflux disease without esophagitis; F03.90 Unspecified dementia, unspecified severity, without behavioral disturbance, psychotic disturbance, mood disturbance, and anxiety; I95.89 Other hypotension; E11.22 Type 2 diabetes mellitus with diabetic chronic kidney disease; Z79.4 Long term (current) use of insulin; Z79.52 Long term (current) use of systemic steroids; Z87.891 Personal history of nicotine dependence; Z90.49 Acquired absence of other specified parts of digestive tract; Z91.81 History of falling; Z86.19 Personal history of other infectious and parasitic diseases
CPT/HCPCS: 36415; 51702; 73700; 74177; 76882; 80048; 80053; 80202; 81001; 82550; 82947; 83605; 85025; 86038; 86140; 87040; 87070; 87075; 87086; 87106; 87147; 87186; 87205; 87529; 93005; 93010; 96361; 96365-59; 96367; 96372; 96376; 97110; 97161; 97165; 97530; 99285-25; A9270; G0378; J0696; J1644; J1815; J2919; J3010; J3373; J7030; J7040; J7050; J7120; Q9967

== ENCOUNTER 2025-01-13 12:10 | Emergency (ER) | payer MEDICARE, OTHER ==
[~2025-01-13] VITALS: Ht 142.2 cm; Wt 72.6 kg
[~2025-01-13 12:10] MED LIST changes: +AMLO5 PO
[2025-01-13 12:44] LABS: BASOPHILS ABSOLUTE AUTO 0.02 K/mm3 (0.00-0.23); BASOPHILS PERCENT AUTO 0 % (0-2); EOSINOPHILS ABSOLUTE AUTO 0.07 K/mm3 (0.00-0.68); EOSINOPHILS PERCENT AUTO 1 % (0-6); Hematocrit 25.2 % (33.0-51.0); Hemoglobin 8.1 g/dL (11.5-16.0); IMMATURE GRAN ABSOLUTE AUTO 0.10 K/mm3 (0.00-0.10); IMMATURE GRAN PERCENT AUTO 2 % (0-1); LYMPHOCYTES ABSOLUTE AUTO 1.11 K/mm3 (0.84-5.20); LYMPHOCYTES PERCENT AUTO 18 % (21-46); MONOCYTES ABSOLUTE AUTO 0.53 K/mm3 (0.16-1.47); MONOCYTES PERCENT AUTO 9 % (4-13); Mean Corpuscular HGB Conc 32.1 g/dL (31.5-36.5); Mean Corpuscular Volume 108 fL (80-100); NEUTROPHILS ABSOLUTE AUTO 4.40 K/mm3 (1.96-9.15); NEUTROPHILS PERCENT AUTO 71 % (41-73); NRBC ABSOLUTE 0.00 K/mm3 (0.00-0.02); NRBC Auto 0.0 /100 WBC (0.0-0.2); Platelet Count 222 K/mm3 (150-400); RDW Coefficient Variation 16.2 % (11.7-14.2); RDW Standard Deviation 60.8 fL (35.1-46.3)
[2025-01-13 13:04] LABS: Alanine Aminotransfer (ALT/SGP 23.0 U/L (12-78); Albumin, Blood 2.1 g/dL (3.4-5.0); Albumin/Globulin Ratio 0.5 (0.8-1.8); Anion Gap 9.0 mmol/L (3-11); Aspartate Aminotrans (AST/SGOT 23.0 U/L (12-37); Bilirubin, Total 0.2 mg/dL (0.1-1.0); Blood Urea Nitrogen 21.0 mg/dL (8-24); CO2, Blood 22.0 mmol/L (21-32); Calcium, Blood 7.4 mg/dL (8.5-10.1); Chloride, Blood 113.0 mmol/L (98-108); Creatinine, Blood 1.58 mg/dL (0.40-1.00); Globulin, Blood 4.1 g/dL (2.2-4.0); Glucose, Blood 167.0 mg/dL (70-99); Potassium, Blood 4.5 mmol/L (3.5-5.5); Sodium, Blood 139.0 mmol/L (136-145); Total Protein, Blood 6.2 g/dL (6.4-8.2)
[2025-01-13] MEDS ORDERED: Lasix20 MG PO (13:56)
[2025-01-13 14:30] VITALS: BP 153/71
== END 2025-01-13 14:57 | disposition home or self-care (01) ==
LOC: ER 12:10
PROVIDERS: Emergency Medicine
DX: R60.0 Localized edema (principal); E11.40 Type 2 diabetes mellitus with diabetic neuropathy, unspecified; K21.9 Gastro-esophageal reflux disease without esophagitis; E11.22 Type 2 diabetes mellitus with diabetic chronic kidney disease; N18.4 Chronic kidney disease, stage 4 (severe); Z87.891 Personal history of nicotine dependence; Z79.899 Other long term (current) drug therapy; Z79.4 Long term (current) use of insulin; Z79.2 Long term (current) use of antibiotics
CPT/HCPCS: 71045; 80053; 83880; 84484; 85025; 93005; 93010; 99285-25

== ENCOUNTER 2025-02-03 21:14 | Emergency (ER) | payer MEDICARE, OTHER ==
[~2025-02-03] VITALS: Ht 142.2 cm; Wt 68.0 kg
[2025-02-03 22:11] VITALS: BP 134/68
[2025-02-03 22:33] LABS: BASOPHILS ABSOLUTE AUTO 0.03 K/mm3 (0.00-0.23); BASOPHILS PERCENT AUTO 1 % (0-2); EOSINOPHILS ABSOLUTE AUTO 0.07 K/mm3 (0.00-0.68); EOSINOPHILS PERCENT AUTO 1 % (0-6); Hematocrit 24.6 % (33.0-51.0); Hemoglobin 8.6 g/dL (11.5-16.0); IMMATURE GRAN ABSOLUTE AUTO 0.12 K/mm3 (0.00-0.10); IMMATURE GRAN PERCENT AUTO 2 % (0-1); LYMPHOCYTES ABSOLUTE AUTO 0.98 K/mm3 (0.84-5.20); LYMPHOCYTES PERCENT AUTO 15 % (21-46); MONOCYTES ABSOLUTE AUTO 0.52 K/mm3 (0.16-1.47); MONOCYTES PERCENT AUTO 8 % (4-13); Mean Corpuscular HGB Conc 35.0 g/dL (31.5-36.5); Mean Corpuscular Volume 101 fL (80-100); NEUTROPHILS ABSOLUTE AUTO 4.66 K/mm3 (1.96-9.15); NEUTROPHILS PERCENT AUTO 73 % (41-73); NRBC ABSOLUTE 0.00 K/mm3 (0.00-0.02); NRBC Auto 0.0 /100 WBC (0.0-0.2); Platelet Count 230 K/mm3 (150-400); RDW Coefficient Variation 14.2 % (11.7-14.2); RDW Standard Deviation 51.8 fL (35.1-46.3)
[2025-02-03 22:59] LABS: Alanine Aminotransfer (ALT/SGP 41.0 U/L (12-78); Albumin, Blood 2.7 g/dL (3.4-5.0); Albumin/Globulin Ratio 0.6 (0.8-1.8); Anion Gap 11.0 mmol/L (3-11); Aspartate Aminotrans (AST/SGOT 29.0 U/L (12-37); Bilirubin, Total 0.3 mg/dL (0.1-1.0); Blood Urea Nitrogen 51.0 mg/dL (8-24); CO2, Blood 24.0 mmol/L (21-32); Calcium, Blood 7.5 mg/dL (8.5-10.1); Chloride, Blood 102.0 mmol/L (98-108); Creatinine, Blood 1.82 mg/dL (0.40-1.00); Globulin, Blood 4.7 g/dL (2.2-4.0); Glucose, Blood 265.0 mg/dL (70-99); Potassium, Blood 4.0 mmol/L (3.5-5.5); Sodium, Blood 133.0 mmol/L (136-145); Total Protein, Blood 7.4 g/dL (6.4-8.2)
[2025-02-04 00:33] LABS: pH Blood Venous 7.43 (7.34-7.37)
== END 2025-02-04 03:05 | disposition home or self-care (01) ==
LOC: ER 21:14
PROVIDERS: Student in an Organized Health Care Education/Training Program
DX: E11.65 Type 2 diabetes mellitus with hyperglycemia (principal); E11.42 Type 2 diabetes mellitus with diabetic polyneuropathy; E11.22 Type 2 diabetes mellitus with diabetic chronic kidney disease; N18.4 Chronic kidney disease, stage 4 (severe); I50.30 Unspecified diastolic (congestive) heart failure; E78.00 Pure hypercholesterolemia, unspecified; K21.9 Gastro-esophageal reflux disease without esophagitis; Z87.891 Personal history of nicotine dependence; Z79.4 Long term (current) use of insulin; Z79.899 Other long term (current) drug therapy
CPT/HCPCS: 80053; 82010; 82803; 82947; 85025; 99284

== ENCOUNTER 2025-02-16 05:27 | Emergency (ER) | payer MEDICARE, OTHER ==
[~2025-02-16] VITALS: Ht 142.2 cm; Wt 68.0 kg
[2025-02-16 07:29] LABS: BASOPHILS ABSOLUTE AUTO 0.02 K/mm3 (0.00-0.23); BASOPHILS PERCENT AUTO 0 % (0-2); EOSINOPHILS ABSOLUTE AUTO 0.07 K/mm3 (0.00-0.68); EOSINOPHILS PERCENT AUTO 1 % (0-6); Hematocrit 24.4 % (33.0-51.0); Hemoglobin 8.7 g/dL (11.5-16.0); IMMATURE GRAN ABSOLUTE AUTO 0.28 K/mm3 (0.00-0.10); IMMATURE GRAN PERCENT AUTO 5 % (0-1); LYMPHOCYTES ABSOLUTE AUTO 1.00 K/mm3 (0.84-5.20); LYMPHOCYTES PERCENT AUTO 17 % (21-46); MONOCYTES ABSOLUTE AUTO 0.52 K/mm3 (0.16-1.47); MONOCYTES PERCENT AUTO 9 % (4-13); Mean Corpuscular HGB Conc 35.7 g/dL (31.5-36.5); Mean Corpuscular Volume 100 fL (80-100); NEUTROPHILS ABSOLUTE AUTO 4.01 K/mm3 (1.96-9.15); NEUTROPHILS PERCENT AUTO 68 % (41-73); NRBC ABSOLUTE 0.00 K/mm3 (0.00-0.02); NRBC Auto 0.0 /100 WBC (0.0-0.2); Platelet Count 225 K/mm3 (150-400); RDW Coefficient Variation 13.8 % (11.7-14.2); RDW Standard Deviation 48.9 fL (35.1-46.3)
[2025-02-16 07:51] LABS: Anion Gap 11.0 mmol/L (3-11); Blood Urea Nitrogen 52.0 mg/dL (8-24); CO2, Blood 27.0 mmol/L (21-32); Calcium, Blood 7.9 mg/dL (8.5-10.1); Chloride, Blood 101.0 mmol/L (98-108); Creatinine, Blood 1.74 mg/dL (0.40-1.00); Glucose, Blood 175.0 mg/dL (70-99); Potassium, Blood 4.1 mmol/L (3.5-5.5); Sodium, Blood 135.0 mmol/L (136-145)
[2025-02-16 08:15] VITALS: BP 129/59
== END 2025-02-16 10:40 | disposition home or self-care (01) ==
LOC: ER 05:27
DX: M54.2 Cervicalgia (principal); I13.0 Hypertensive heart and chronic kidney disease with heart failure and stage 1 through stage 4 chronic kidney disease, or unspecified chronic kidney disease; E11.22 Type 2 diabetes mellitus with diabetic chronic kidney disease; N18.9 Chronic kidney disease, unspecified; I50.9 Heart failure, unspecified; K21.9 Gastro-esophageal reflux disease without esophagitis; Z87.891 Personal history of nicotine dependence
CPT/HCPCS: 72040; 80048; 85025; A9270

== ENCOUNTER 2025-03-27 20:59 | Emergency (ER) | payer MEDICARE, OTHER ==
[~2025-03-27] VITALS: Ht 144.8 cm; Wt 68.0 kg
[2025-03-27 22:40] LABS: BASOPHILS ABSOLUTE AUTO 0.03 K/mm3 (0.00-0.23); BASOPHILS PERCENT AUTO 1 % (0-2); EOSINOPHILS ABSOLUTE AUTO 0.06 K/mm3 (0.00-0.68); EOSINOPHILS PERCENT AUTO 1 % (0-6); Hematocrit 27.1 % (33.0-51.0); Hemoglobin 9.4 g/dL (11.5-16.0); IMMATURE GRAN ABSOLUTE AUTO 0.21 K/mm3 (0.00-0.10); IMMATURE GRAN PERCENT AUTO 4 % (0-1); LYMPHOCYTES ABSOLUTE AUTO 0.86 K/mm3 (0.84-5.20); LYMPHOCYTES PERCENT AUTO 18 % (21-46); MONOCYTES ABSOLUTE AUTO 0.42 K/mm3 (0.16-1.47); MONOCYTES PERCENT AUTO 9 % (4-13); Mean Corpuscular HGB Conc 34.7 g/dL (31.5-36.5); Mean Corpuscular Volume 99 fL (80-100); NEUTROPHILS ABSOLUTE AUTO 3.16 K/mm3 (1.96-9.15); NEUTROPHILS PERCENT AUTO 67 % (41-73); NRBC ABSOLUTE 0.00 K/mm3 (0.00-0.02); NRBC Auto 0.0 /100 WBC (0.0-0.2); Platelet Count 211 K/mm3 (150-400); RDW Coefficient Variation 13.2 % (11.7-14.2); RDW Standard Deviation 47.6 fL (35.1-46.3)
[2025-03-27 23:00] LABS: Alanine Aminotransfer (ALT/SGP 28.0 U/L (12-78); Albumin, Blood 2.9 g/dL (3.4-5.0); Albumin/Globulin Ratio 0.7 (0.8-1.8); Anion Gap 10.0 mmol/L (3-11); Aspartate Aminotrans (AST/SGOT 17.0 U/L (12-37); Bilirubin, Total 0.3 mg/dL (0.1-1.0); Blood Urea Nitrogen 52.0 mg/dL (8-24); CO2, Blood 27.0 mmol/L (21-32); Calcium, Blood 8.2 mg/dL (8.5-10.1); Chloride, Blood 100.0 mmol/L (98-108); Creatinine, Blood 1.78 mg/dL (0.40-1.00); Globulin, Blood 4.4 g/dL (2.2-4.0); Glucose, Blood 368.0 mg/dL (70-99); Potassium, Blood 4.3 mmol/L (3.5-5.5); Sodium, Blood 133.0 mmol/L (136-145); Total Protein, Blood 7.3 g/dL (6.4-8.2)
[2025-03-27] MEDS ORDERED: Insulin Human Lispro 100 Units/ML 3ML Syringe SC ONE (23:20)
[2025-03-28 00:50] VITALS: BP 136/72
== END 2025-03-28 00:59 | disposition home or self-care (01) ==
LOC: ER 20:59
PROVIDERS: Emergency Medicine
DX: E11.65 Type 2 diabetes mellitus with hyperglycemia (principal); Z79.899 Other long term (current) drug therapy; Z79.4 Long term (current) use of insulin; N18.4 Chronic kidney disease, stage 4 (severe); K21.9 Gastro-esophageal reflux disease without esophagitis
CPT/HCPCS: 80053; 82947; 85025; 99283; A6590; J1815

== ENCOUNTER 2025-03-31 17:10 | Emergency (ER) | payer MEDICARE, OTHER ==
[~2025-03-31] VITALS: Ht 144.8 cm; Wt 70.3 kg
[2025-03-31 17:42] LABS: BASOPHILS ABSOLUTE AUTO 0.03 K/mm3 (0.00-0.23); BASOPHILS PERCENT AUTO 1 % (0-2); EOSINOPHILS ABSOLUTE AUTO 0.05 K/mm3 (0.00-0.68); EOSINOPHILS PERCENT AUTO 1 % (0-6); Hematocrit 27.3 % (33.0-51.0); Hemoglobin 9.5 g/dL (11.5-16.0); IMMATURE GRAN ABSOLUTE AUTO 0.20 K/mm3 (0.00-0.10); IMMATURE GRAN PERCENT AUTO 4 % (0-1); LYMPHOCYTES ABSOLUTE AUTO 0.91 K/mm3 (0.84-5.20); LYMPHOCYTES PERCENT AUTO 16 % (21-46); MONOCYTES ABSOLUTE AUTO 0.37 K/mm3 (0.16-1.47); MONOCYTES PERCENT AUTO 7 % (4-13); Mean Corpuscular HGB Conc 34.8 g/dL (31.5-36.5); Mean Corpuscular Volume 99 fL (80-100); NEUTROPHILS ABSOLUTE AUTO 4.08 K/mm3 (1.96-9.15); NEUTROPHILS PERCENT AUTO 72 % (41-73); NRBC ABSOLUTE 0.00 K/mm3 (0.00-0.02); NRBC Auto 0.0 /100 WBC (0.0-0.2); Platelet Count 195 K/mm3 (150-400); RDW Coefficient Variation 13.2 % (11.7-14.2); RDW Standard Deviation 47.8 fL (35.1-46.3)
[2025-03-31 18:13] LABS: Alanine Aminotransfer (ALT/SGP 36.0 U/L (12-78); Albumin, Blood 3.1 g/dL (3.4-5.0); Albumin/Globulin Ratio 0.8 (0.8-1.8); Anion Gap 11.0 mmol/L (3-11); Aspartate Aminotrans (AST/SGOT 32.0 U/L (12-37); Bilirubin, Total 0.4 mg/dL (0.1-1.0); Blood Urea Nitrogen 58.0 mg/dL (8-24); CO2, Blood 24.0 mmol/L (21-32); Calcium, Blood 8.0 mg/dL (8.5-10.1); Chloride, Blood 100.0 mmol/L (98-108); Creatinine, Blood 2.07 mg/dL (0.40-1.00); Globulin, Blood 4.1 g/dL (2.2-4.0); Glucose, Blood 302.0 mg/dL (70-99); Potassium, Blood 4.3 mmol/L (3.5-5.5); Sodium, Blood 131.0 mmol/L (136-145); Total Protein, Blood 7.2 g/dL (6.4-8.2)
[2025-03-31] MEDS ORDERED: NS 1,000 ML IV SCH (18:20)
[2025-03-31 21:15] VITALS: BP 129/61
== END 2025-03-31 21:30 | disposition home or self-care (01) ==
LOC: ER 17:10
PROVIDERS: Emergency Medicine
DX: K62.5 Hemorrhage of anus and rectum (principal); E11.42 Type 2 diabetes mellitus with diabetic polyneuropathy; E78.00 Pure hypercholesterolemia, unspecified; K21.9 Gastro-esophageal reflux disease without esophagitis; E11.22 Type 2 diabetes mellitus with diabetic chronic kidney disease; I50.30 Unspecified diastolic (congestive) heart failure; N18.4 Chronic kidney disease, stage 4 (severe); Z87.891 Personal history of nicotine dependence; Z79.4 Long term (current) use of insulin; Z79.899 Other long term (current) drug therapy
CPT/HCPCS: 80053; 85025; 86850; 86870; 86900; 86901; 93005; 93010; 99284-25; A6590; J7030